=== PATIENT | female | born 1965 | race Caucasian/White ===

== ENCOUNTER 2020-02-10 08:07 | Emergency (ER) | payer BC, SELFPAY ==
[2020-02-10 08:13] VITALS: BP 140/100; PULSE 85; RESP 18; TEMP 36.8; O2SAT 98
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
[2020-02-10 09:30] VITALS: BP 135/92; PULSE 70; RESP 12; O2SAT 99
== END 2020-02-10 09:35 | disposition home or self-care (01) ==
PROVIDERS: Emergency Provider Emergency Medicine; PCP Family Medicine
DX: T21.21XA Burn of second degree of chest wall, initial encounter (principal); T31.0 Burns involving less than 10% of body surface; X11.1XXA Contact with running hot water, initial encounter
CPT/HCPCS: 99283

== ENCOUNTER 2021-12-23 16:28 | Emergency (ER) | payer SELFPAY ==
[2021-12-23 16:39] VITALS: BP 183/105; PULSE 120; RESP 28; TEMP 36.1; O2SAT 88
[2021-12-23] MEDS: IPRATROPIUM BR 0.02% INH SOLN 0.5 MG/2.5 ML VIAL INHALATION (16:39)
[2021-12-23] MEDS: ALBUTEROL SULFATE NEB 2.5 MG/3 ML INH INHALATION (16:39)
--- NOTE | 2021-12-23 16:39 | ED.GENADULT ---
HPI - General Adult General Chief complaint: Shortness of Breath/Dyspnea Stated complaint: Shortness of Breath Time Seen by Provider: 12/23/21 16:30 Source: patient and RN notes reviewed Mode of arrival: ambulatory Limitations: no limitations History of Present Illness HPI narrative: 56-year-old female presents to the [facility] with complaints of shortness of breath. [facility] tachypneic, tachycardic and low sats. Patient can only talk 2-3 word sentences. Mildly diaphoretic. states that she saw her primary care provider a month ago (12/02 per medical record) was told it was a viral cough and was given an inhaler. Patient comes in stating its not getting any better, getting worse, unable to catch her breath. Patient denies any chest pain or abdominal pain. No nausea or vomiting. MD complaint: shortness of breath Onset (ago): week(s) (3, worse over the last couple days) Treatments prior to arrival: other (Prescribed albuterol inhaler) Related Data Home Medications Medication Instructions Recorded Confirmed albuterol sulfate 90 mcg/actuation 1 inh inhalation DIRECTED 12/23/21 12/23/21 aerosol inhaler dextroamphetamine-amphetamine 15 1 tablet BID 12/23/21 12/23/21 mg tablet omeprazole 40 mg capsule,delayed 40 cap DAILY 12/23/21 12/23/21 release sertraline 100 mg tablet 50 tablet DAILY 12/23/21 12/23/21 Allergies Allergy/AdvReac Type Severity Reaction Status Date / Time No Known Allergies Allergy Mild Verified 12/23/21 16:43 Review of Systems Review of Systems: All systems reviewed & are unremarkable except as noted in HPI and below Constitutional: Constitutional: Reports no additional constitutional complaints, Denies chills and Denies fever(s) Eyes: Eyes: Reports no additional eye complaints ENT: Reports system reviewed and no additional complaints, except as documented Cardiovascular: Cardiovascular: Reports no additional cardiovascular complaints Respiratory: Respiratory: Reports as per HPI, Reports cough, Reports dyspnea and Reports wheezing Gastrointestinal: Gastrointestinal: Reports no additional gastrointestinal complaints Musculoskeletal: Musculoskeletal: Reports no additional musculoskeletal complaints Integumentary/Breasts: Skin/Breast: Reports system reviewed and no additional complaints, except as docu Neurologic: Reports system reviewed and no additional complaints, except as documented Psychiatric: Psychiatric: Reports no additional psychiatric complaints Allergic/Immunologic: Allergic/Immunologic: Reports no additional allergic/immunologic complaints [facility] Past Medical History Medical History (Updated 12/23/21 @ 17:23 by Luz Abarca APRN) Bilateral hand numbness Elevated glucose Elevated hemoglobin Elevated liver enzymes Elevated liver function tests Hot flashes Insomnia MDD (major depressive disorder) Surgical History Surgical History (Updated 12/23/21 @ 17:23 by Luz Abarca APRN) No history of previous surgery Family History Family History Mother Hypertension Family history of diabetes mellitus in first degree relative Father Hypertension Grandparent Family history of malignant neoplasm of breast Social History Social History Smoking status: Former smoker Tobacco type: cigarettes Smoking end date: 07/10/08 Alcohol intake: current Drinks per week: 10 Substance use: current Substance use type: marijuana Other substance usage details: smokes, 1-2x per day 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
--- NOTE | 2021-12-23 16:40 | ECG_ITS ---
Measurements Intervals [place] Rate: 103 P: 72 HI: 132 QRS: 17 QRSD: 91 T: 47 QT: 344 QTc: 452 Interpretive Statements SINUS TACHYCARDIA POSSIBLE LEFT ATRIAL ENLARGEMENT [-0.1mV P WAVE IN V1/V2] ABNORMAL RHYTHM ECG COMPARED TO ECG 12/23/2021 16:37:26 NO SIGNIFICANT DIFFERENCE Electronically Signed On 12-24-2021 14:32:02 CDT by Yared Euceda M.D.
[2021-12-23 16:45] VITALS: BP 183/105; PULSE 120; RESP 28; TEMP 36.1; O2SAT 88
[2021-12-23 17:09] VITALS: O2SAT 94
== END 2021-12-23 17:09 | disposition short-term general hospital (02) ==
PROVIDERS: Emergency Provider Nurse Practitioner; PCP Family Medicine
DX: R06.00 Dyspnea, unspecified (principal); Z87.891 Personal history of nicotine dependence; F32.9 Major depressive disorder, single episode, unspecified
CPT/HCPCS: 93005; 94640; 99213; G0463

== ENCOUNTER 2021-12-23 17:24 | Inpatient (IN) | payer MEDICAID, SELFPAY ==
[2021-12-23] VITALS (7 sets, daily range): BP systolic 143–181; BP diastolic 87–100; PULSE 80–114; RESP 14–28; TEMP 36.3–36.9; O2SAT 92–97; BMI 25.0; BMI 25.9
--- NOTE | ~2021-12-23 | CT_ITS ---
EXAMINATION: CTA chest PE protocol DATE: 12/23/2021 20:24 INDICATION: Shortness of breath, cough. Tachycardia. Positive d-dimer. TECHNIQUE: Computed tomography angiography (CTA) of the chest was performed with 100 mL Omnipaque-350 intravenous contrast timed to evaluate the pulmonary arteries. Coronal maximum intensity projection 3D-reconstructions were created by the technologist. Automated exposure control and iterative reconst ruction technique were employed. Exam dose: 201.67 mGy-cm total exam DLP. COMPARISON: 12/23/2021 PA and lateral chest FINDINGS: There is diagnostic contrast enhancement of the pulmonary arteries and no evidence of pulmo nary embolism. No thoracic aortic aneurysm or dissection. Normal heart size. No hilar or mediastinal mass lesion or lymphadenopathy. There are patchy groundglass mild infiltrates in the middle lobe, left upper lobe and bilateral lower lobes, which may be due to mild bilateral pneumonia. Mild compression fracture deformity of T11. No suspicious osteolytic or osteoblastic lesions. IMPRESSION: No evidence of pulmonary embolism Scattered mild bilateral pulmonary groundglass infiltrates, which may be due to patchy bilateral pneu monia Reviewed, dictated and finalized at [facility]. Reviewed, dictated and finalized at [facility]. IMPRESSION: No evidence of pulmonary embolism Scattered mild bilateral pulmonary groundglass infiltrates, which may be due to patchy bilateral pneumonia
--- NOTE | ~2021-12-23 | XR_ITS ---
XR chest 2V DATE: 12/23/2021 18:18 INDICATION: Shortness of breath and cough TECHNIQUE: PA and lateral views COMPARISON: 09/29/2008 expiratory PA chest FINDINGS: Normal heart size. No hilar or mediastinal enlargement. Mild leftward cardiac left lower lobe infiltrate or atelectasis. No pulmonary infiltrate or consolida tion, pleural effusion or pulmonary vascular congestion or pneumothorax is detected otherwise. IMPRESSION: Mild left lower lobe infiltrate or atelectasis Reviewed, dictated and finalized at [facility].
--- NOTE | 2021-12-23 17:33 | ECG_ITS ---
Measurements Intervals [place] Rate: 98 P: 72 VA: 136 QRS: 8 QRSD: 77 T: 41 QT: 356 QTc: 455 Interpretive Statements SINUS RHYTHM POSSIBLE RIGHT ATRIAL ENLARGEMENT [0.25mV P WAVE] NONSPECIFIC T-WAVE ABNORMALITY NO PREVIOUS ECG AVAILABLE FOR COMPARISON Electronically Signed On 12-24-2021 14:29:06 CDT by Yared Euceda M.D.
[2021-12-23 17:51] LABS: Basophils Percent Auto 0.5 % (0.2-1.2); Eosinophils Absolute Auto 0.4 K/mm3 (0-0.3); Eosinophils Percent Auto 4.9 % (0-4.4); Hematocrit 53.9 % (37.0-47.0); Hemoglobin 17.9 g/dL (12.0-15.0); Immature Granulocyte Absolute 0.03 K/mm3 (0.00-0.031); Immature Granulocyte Percent A 0.4 % (0-0.5); Lymphocytes Absolute Auto 1.85 K/mm3 (0.9-3.2); Lymphocytes Percent Auto 25.3 % (18.3-44.2); Mean Corpuscular HGB Conc 33.2 g/dl (32-36); Mean Corpuscular Hemoglobin 30.7 pg (26-34); Mean Corpuscular Volume 92.3 fl (80-100); Mean Platelet Volume 9.1 fl (7.4-10.4); Monocytes Absolute Auto 0.5 K/mm3 (0.1-0.6); Monocytes Percent Auto 7.1 % (2.6-8.5); Neutrophils Absolute Auto 4.5 K/mm3 (1.3-6.7); Neutrophils Percent Auto 61.8 % (45.5-73.1); Platelet Count Result 180 k/mm3 (150-375); Red Blood Count 5.84 M/mm3 (4.2-5.4); Red Cell Distribution Width 13.4 % (11.5-14.5); White Blood Count 7.3 K/mm3 (4.5-10.0)
[2021-12-23 18:04] LABS: Alanine Aminotransferase 39 U/L (6-35); Albumin Level 4.8 g/dL (3.5-5.1); Alkaline Phosphatase 152 U/L (38-126); Anion Gap 12 mmol/L (8-16); Aspartate Amino Transferase 47 U/L (14-36); Bilirubin,Total 0.6 mg/dL (0.2-1.3); Blood Urea Nitrogen 13 mg/dL (7-17); Calcium 9.1 mg/dL (8.4-10.2); Carbon Dioxide 26 mmol/L (22-30); Chloride 104 mmol/L (98-107); Estimated CRCL calculation 95 ml/min; Estimated Glomerular Filt Rate > 60; Glucose 101 mg/dL (65-110); Potassium 3.7 mmol/L (3.4-5.0); Sodium 142 mmol/L (137-145)
--- NOTE | 2021-12-23 18:27 | ED.SOB ---
HPI - SOB/Dyspnea General Chief Complaint: Shortness of Breath/Dyspnea <ELAINA Rose Last Filed: 12/23/21 23:15> Stated Complaint: SOB, REFUSED EMS-SATS 88% <ELAINA Rose Last Filed: 12/23/21 23:15> Time Seen by Provider: 12/23/21 18:11 <ELAINA Rose Last Filed: 12/23/21 23:15> History of Present Illness HPI Narrative: Patient is a 56-year-old female here for evaluation of cough and shortness of breath for the past month. Patient states that her symptoms began with a dry cough at the beginning of the month and symptoms have progressed in nature to the point where she feels short of breath. The cough was initially productive in nature of green sputum, but is now dry. The cough is not worse when she is lying flat. She has been seen by her primary care provider and was given albuterol inhaler without much relief of her symptoms. She additionally presented to an urgent care today, got breathing treatment, was told to come to the ED because her oxygen saturation was 88%. Patient has not had a COVID test throughout the symptoms although she is fully vaccinated. She denies any fevers, chills, body aches, leg swelling, orthopnea, weight gain, chest pain, syncope. No history of blood clots. <ELAINA Rose Last Filed: 12/23/21 23:15> Related Data Home Medications: Home Medications Medication Instructions Recorded Confirmed dextroamphetamine-amphetamine 15 1 tablet PO BID 12/23/21 01/05/22 mg tablet omeprazole 40 mg capsule,delayed 40 cap PO DAILY 12/23/21 01/05/22 release sertraline 100 mg tablet 50 tablet PO DAILY 12/23/21 01/05/22 <ELAINA Rose Last Filed: 12/23/21 23:15> Allergies/Adverse Reactions: Allergies Allergy/AdvReac Type Severity Reaction Status Date / Time No Known Allergies Allergy Mild Verified 01/05/22 15:06 <ELAINA Rose Last Filed: 12/23/21 23:15> Review of Systems Review of Systems: Gen: Denies fevers or chills Eyes: Denies eye pain or visual change ENT: Denies congestion Respiratory: Reports shortness of breath and cough CV: Denies chest pain or palpitations GI: Denies abdominal pain nausea, emesis or diarrhea denies burning, urgency, frequency or hematuria Musculoskeletal: Denies back pain or muscle pain Neuro: Denies numbness, tingling, weakness or focal weakness Skin: Denies rash Except as documented, all other systems reviewed and negative <Annika Miller PA-C - Last Filed: 12/23/21 23:15> [facility] Past Medical History Medical History: Medical History Attention Deficit Hyperactivity Disorder (ADHD) Depression Gastroesophageal reflux disease Hypertension Insomnia <Annika Miller PA-C - Last Filed: 12/23/21 23:15> Surgical History Surgical History: Surgical History History of hysteroscopy With dilation and curettage and endocervical polypectomy. <Annika Miller PA-C - Last Filed: 12/23/21 23:15> Family History Family History: Family History Mother Hypertension Family history of diabetes mellitus in first degree relative Father Hypertension Grandparent Family history of malignant neoplasm of breast <Annika Miller PA-C - Last Filed: 12/23/21 23:15> Social History Social History: Social History Social History: Surrogate decision maker: Maritza Smith, mother. Code status: Full code. Smoking packs per day: 0.5 Smoking cigarettes per day: 10.0 Smoking status: Former smoker Tobacco type: cigarettes Additional smoking assessment comments: Quit about 15 years ago. Alcohol intake: current Drinks per week: 7 Alcohol use details: She has not drank mu
[2021-12-23] MEDS: ALBUTEROL SULFATE NEB 2.5 MG/3 ML INH INHALATION (18:44)
[2021-12-23 19:15] LABS: D Dimer 1.02 ug/mL (<0.48)
[2021-12-23 19:18] LABS: NT Pro B Type Natriuretic Pept < 11 pg/mL (5-100)
--- NOTE | 2021-12-23 21:09 | PM.IMHP ---
H&P: HPI History of Present Illness Date/Time: 12/23/21 21:09 Chief Complaint: Shortness of breath. Narrative: This is a 56-year-old female with past medical history significant for GERD, major depressive disorder. Patient presented to emergency room due to shortness of breath, cough, for the last several days or so however the day that she presents to the emergency room she had checked her pulse ox with home pulse ox and indicated 86%. Patient has has some chills, fevers, poor appetite, denies any nausea, vomiting, abdominal pain, diarrhea, has been having hot flashes and night sweats. Preliminary workup was significant for lactic acid of 3.6, slightly elevated D-dimer, CT angiogram of the chest did not show acute pulmonary embolism bilateral patchy ground-glass opacities were present. Patient has been admitted for further evaluation management and treatment. Review of Systems Review of Systems: Shortness of breath, cough, night sweats, hot flashes, low pulse ox. Constitutional: Constitutional: Reports chills, Reports fatigue, Reports fever(s), Reports lethargy, Reports malaise, Reports night sweats and Reports poor appetite Eyes: Eyes: Denies change in vision ENT: Denies dysphagia, Denies vertigo, Denies dizziness and Denies odynophagia Cardiovascular: Cardiovascular: Denies chest pain, Denies pedal edema, Denies irregular heart rhythm, Denies claudication, Denies lightheadedness, Denies palpitations and Denies dyspnea on exertion Respiratory: Respiratory: Reports cough and Reports excessive phlegm production Gastrointestinal: Gastrointestinal: Denies abdominal pain, Denies dyspepsia, Denies heartburn and Denies diarrhea Genitourinary: Genitourinary: Reports no additional female genitourinary complaints and Reports as per HPI Musculoskeletal: Musculoskeletal: Denies back pain, Reports myalgias, Denies arthralgias and Denies joint swelling Integumentary/Breasts: Skin/Breast: Denies rash Neurologic: Denies focal weakness and Denies Sensory deficit (Neuro) Psychiatric: Psychiatric: Reports no additional psychiatric complaints and Reports as per HPI Endocrine: Endocrine: Denies cold intolerance, Denies fatigue, Denies flushing, Denies heat intolerance, Denies polyphagia, Denies polydipsia and Denies palpitations Hematologic/Lymphatic: Hematologic/Lymphatic: Reports no additional hematologic/lymphatic complaints and Reports as per HPI Allergic/Immunologic: Allergic/Immunologic: Reports no additional allergic/immunologic complaints and Reports as per HPI [facility] Past Medical History Medical History Bilateral hand numbness Elevated glucose Elevated hemoglobin Elevated liver enzymes Elevated liver function tests Hot flashes Insomnia MDD (major depressive disorder) Surgical History Surgical History No history of previous surgery Family History Family History Mother Hypertension Family history of diabetes mellitus in first degree relative Father Hypertension Grandparent Family history of malignant neoplasm of breast Social History Social History Smoking packs per day: 0.5 Smoking cigarettes per day: 10.0 Smoking status: Former smoker Tobacco type: cigarettes Alcohol intake: current Drinks per week: 10 Substance use: current Substance use type: marijuana Other substance usage details: smokes, 1-2x per day Additional occupation/education comments: [employer] Gender identity (if verbalized by the patient): Female Sexual Orientation (if Verbalized by the Patient): Straight or Heterosexual Spiritual care concerns: No Agree to blood products: Yes Meds Home Medications and Allergies Home Medications Medication Instructions Recorded Confirmed Type alb
[2021-12-23 21:20] LABS: Lactic Acid Reflex 3.6 mmol/L (0.7-2.0)
[2021-12-23] MEDS: SODIUM CHLORIDE 0.9% IV 1,000 ML 999 ML IV CONT (22:20)
--- NOTE | 2021-12-23 23:06 | PC.NURSE ---
This patient, Luci Smith, was admitted to [facility] Surg Room 320-01. Patient/family oriented to hospital policies and general routines including ID bracelet, bed and alarms, visiting hours, pain management, procedures, bathroom and other care routines, personal items, smoking policy, room service/diet, and visiting hours. Information on how to activate the Rapid Response Team has been discussed. Patient/Family are encouraged to report perceived risks to care and to ask questions if they do not understand what they are told or what they should do.
[2021-12-24 00:09] LABS: Reflex Lactic Acid Yes or No Add Lactic
[2021-12-24 00:54] LABS: Lactic Acid 1.6 mmol/L (0.7-2.0)
[2021-12-24 06:00] VITALS: BP 163/93; PULSE 81; RESP 20; TEMP 36.2; O2SAT 96
[2021-12-24 08:00] VITALS: PULSE 81; RESP 20; O2SAT 96
[2021-12-24] MEDS: PANTOPRAZOLE 40 MG TABLET PO ×2 (08:40→16:18)
[2021-12-24] MEDS: ONDANSETRON INJ 4 MG/2 ML VIAL IV PUSH (10:10)
[2021-12-24] MEDS: HYDROcodone/acetaminophen (*CRX) 5-325 MG TABLET 1 TAB PO ×3 (11:08→21:01)
[2021-12-24] MEDS: SERTRALINE HCL 50 MG TABLET 200 MG PO (11:09)
[2021-12-24] MEDS: ENOXAPARIN 40 MG/0.4 ML SYRINGE SUB-Q (11:09)
--- NOTE | 2021-12-24 11:15 | PM.IMPN ---
Progress Note: A&P Assessment and Plan (1) Sepsis: Code(s): A41.9 - Sepsis, unspecified organism Status: Acute Assessment and Plan: Patient meets sepsis criteria with tachycardia, elevated lactic acid, tachypnea, lactic acidosis, and present source of infection Source of infection PNA chest xray- mild left lower lobe infiltrate CTA shows ground glass opacities Blood cultures pending sputum culture pending Neb treatments ordered Antibiotics ordered IV fluids given in the ed (2) Pneumonia: Code(s): J18.9 - Pneumonia, unspecified organism Status: Acute Assessment and Plan: See above (3) Transaminitis: Code(s): R74.01 - Elevation of levels of liver transaminase levels Status: Acute Assessment and Plan: AST/ALT 47/39, Alk Phos 152 Hep panel in the am Consider RUQ ultrasound Time Spent With Patient Time with patient: Greater than 35 minutes Subjective Date/time seen: 12/24/21 11:15 Interval history: Patient stated that she feels very ?shitty and Stinky . She stated that she has a cough however it has not been as bad since 5:00 a.m. this morning and she does not getting up. She did state that she is having more problems with wheezes she denies any chest pain but she does say that she has nausea specially when she eats but she said she has also jittery and feels like she should be eating. She has also been experiencing some sweat, fevers, chills. She also states that she has been short of breath with talking and laughing. She also has experienced some pain in her tooth which she does not know where that came from however pain medicine is currently ordered. Patient also stated her blood pressures been usually runs in the 120s but she has not checked it in a while so she does not know for sure. Patient stated that she has not vomited and she denies any weakness or fatigue. Patient stated that it has been hard to take a deep breath. Review of Systems Review of Systems: All systems reviewed & are unremarkable except as noted in HPI and below Exam Const: General: cooperative, no acute distress, well developed, alert and awake Nutritional Appearance: well nourished Orientation/consciousness: patient oriented x3 Limitations: no limitations HENMT: Head: normal to inspection Ears: hearing grossly normal bilaterally General nose exam: Normal external nose present Mouth: Yes Normal oral and palatal mucosa present, Yes lip normal and Yes tongue normal Teeth and gingiva: abnormal tooth and associated gingiva and poor dentition Eyes: General: appearance normal, both eyes and all related structures Neck: Neck: normal visual inspection, full ROM, trachea midline and supple Chest: Chest palpation & inspection: normal inspection of the chest Resp: Effort & Inspection: abnormal respiratory pattern, Actively coughing, labored and tachypneic Auscultation: diminished lung sounds bilateral throughout Cardio: Jugular venous distension: no JVD Rate: regular rate Rhythm: regular rhythm Heart sounds: S1 normal heart sound present and S2 normal heart sound present Peripheral pulses: Peripheral pulses 2+ throughout GI: Inspection: normal to inspection GI Palp: Yes Soft to palpation and No Tenderness to palpation present (GI) Auscultation: normal bowel sounds Skin: General skin exam: normal color and no rashes or lesions noted Lesions: no lesions Rashes: no rashes Trauma: no lacerations or abrasions Wounds: no wounds Hair: normal Nails: normal Neuro: General: patient oriented x3, moves all extremities and Normal light touch and pain sensation Speech: normal speech Gait exam (Neuro): Normal gait present Extrem: General: normal to inspection Right upper extremity: normal to inspection Left upper extremity: normal to inspection Right lower extremity: normal to inspection Left lower extremity: normal to inspection Psych: Appearan
[2021-12-24 14:00] VITALS: BP 165/87; PULSE 66; RESP 16; TEMP 36.2; O2SAT 95
[2021-12-24 20:53] VITALS: BP 190/110; PULSE 82; RESP 18; TEMP 36.1; O2SAT 97
[2021-12-24] MEDS: cefTRIAXone 2 GM in SODIUM CHLORIDE 0.9% IV 100 ML 200 ML IVPB (20:55)
[2021-12-24] MEDS: hydrALAZINE HCL 20 MG/ML VIAL 10 MG IV PUSH (21:37)
[2021-12-24] MEDS: guaiFENesin 200 MG/10 ML UDC PO (21:38)
[2021-12-24 23:14] VITALS: BP 170/90
[2021-12-25] MEDS: HYDROcodone/acetaminophen (*CRX) 5-325 MG TABLET 1 TAB PO ×2 (02:09→08:37)
[2021-12-25 05:14] VITALS: BP 161/85; PULSE 71; RESP 16; TEMP 36.6; O2SAT 99
[2021-12-25 06:07] LABS: Basophils Percent Auto 0.4 % (0.2-1.2); Eosinophils Absolute Auto 0.5 K/mm3 (0-0.3); Eosinophils Percent Auto 5.8 % (0-4.4); Hematocrit 54.2 % (37.0-47.0); Hemoglobin 18.2 g/dL (12.0-15.0); Immature Granulocyte Absolute 0.02 K/mm3 (0.00-0.031); Immature Granulocyte Percent A 0.3 % (0-0.5); Lymphocytes Absolute Auto 1.83 K/mm3 (0.9-3.2); Mean Corpuscular HGB Conc 33.6 g/dl (32-36); Mean Corpuscular Volume 92.2 fl (80-100); Mean Platelet Volume 9.7 fl (7.4-10.4); Monocytes Absolute Auto 0.6 K/mm3 (0.1-0.6); Monocytes Percent Auto 7.8 % (2.6-8.5); Neutrophils Percent Auto 62.7 % (45.5-73.1); Platelet Count Result 165 k/mm3 (150-375); Red Blood Count 5.88 M/mm3 (4.2-5.4); Red Cell Distribution Width 12.8 % (11.5-14.5)
[2021-12-25 06:22] LABS: Alanine Aminotransferase 34 U/L (6-35); Albumin Level 4.5 g/dL (3.5-5.1); Alkaline Phosphatase 122 U/L (38-126); Anion Gap 8 mmol/L (8-16); Aspartate Amino Transferase 44 U/L (14-36); Bilirubin,Total 1.3 mg/dL (0.2-1.3); Blood Urea Nitrogen 12 mg/dL (7-17); Calcium 9.1 mg/dL (8.4-10.2); Carbon Dioxide 30 mmol/L (22-30); Chloride 97 mmol/L (98-107); Estimated CRCL calculation 95 ml/min; Estimated Glomerular Filt Rate > 60; Glucose 107 mg/dL (65-110); Magnesium 1.8 mg/dL (1.6-2.3); Potassium 3.3 mmol/L (3.4-5.0); Sodium 135 mmol/L (137-145)
[2021-12-25 08:00] VITALS: PULSE 71; RESP 16; O2SAT 99
[2021-12-25] MEDS: SERTRALINE HCL 50 MG TABLET 200 MG PO (08:34)
[2021-12-25] MEDS: ENOXAPARIN 40 MG/0.4 ML SYRINGE SUB-Q (08:34)
[2021-12-25] MEDS: PANTOPRAZOLE 40 MG TABLET PO (08:34)
--- NOTE | 2021-12-25 10:45 | PM.DS ---
DS: Admitting Diagnosis Discharge Date 12/25/21 1045 Admitting Diagnosis Pneumonia DS: Discharge Diagnosis Discharge Diagnosis (1) Sepsis: Code(s): A41.9 - Sepsis, unspecified organism Status: Acute Assessment and Plan: Patient meets sepsis criteria with tachycardia, elevated lactic acid, tachypnea, lactic acidosis, and present source of infection Source of infection PNA chest xray- mild left lower lobe infiltrate CTA shows ground glass opacities Blood cultures NGTD sputum culture Mixed yary Neb treatments ordered Antibiotics ordered IV fluids given in the ed (2) Pneumonia: Code(s): J18.9 - Pneumonia, unspecified organism Status: Acute Assessment and Plan: See above (3) Transaminitis: Code(s): R74.01 - Elevation of levels of liver transaminase levels Status: Acute Assessment and Plan: AST/ALT 44/34, Alk Phos 122 Consider RUQ ultrasound (4) Hypertension: Code(s): I10 - Essential (primary) hypertension Status: Acute Assessment and Plan: BP running high currently 161/85 Add lisinopril 10mg pO daily Trend BP adjust therapy as indicated DS: Summary Hospital Course Hospital Course: Patient is a 56-year-old female with a past medical history of GERD, major depressive disorder, who presented to the ED for shortness of breath and cough the last several days. Laboratory results did review patient did meet sepsis criteria and IV antibiotics were started. Blood cultures also showed taken however show no growth to date. Chest x-ray does show bilateral ground-glass opacities consistent with pneumonia. Patient was given IV fluids for rehydration. Patient does feel a lot better today. Patient states that she has had much of cough and no phlegm. She denies any chest pain, shortness of breath, nausea, vomiting, diarrhea, constipation weakness or fatigue. Patient is concerned about her blood pressure which is currently 161/82. Patient has been started on lisinopril p.o.. Patient feels stable and ready to go home. Labs and vital signs are stable at this time. Will educate patient about taking her blood pressure and reporting to her primary care physician for further instructions. Status at Discharge Functional status at discharge: independent ambulation Overall status at discharge: patient is progressing back to baseline Time Spent with Patient Time attestation: Total time spent providing and/or coordinating discharge services: 42 minutes Time spent: Greater than 30 minutes Specific discharge activities: Diagnostic testing, chart review, developing a treatment plan, education, care coordination documentation, physical exam, result review Exam Const: General: cooperative, comfortable, no acute distress, well developed, alert, awake, Physically active and tired appearing Nutritional Appearance: average body habitus and well nourished Orientation/consciousness: patient oriented x3 Limitations: no limitations HENMT: Head: normal to inspection, normocephalic and atraumatic Ears: hearing grossly normal bilaterally General nose exam: Normal external nose present Face and sinus: normal facial exam Mouth: Yes Normal oral and palatal mucosa present, Yes lip normal and Yes tongue normal Teeth and gingiva: abnormal tooth and associated gingiva and poor dentition Eyes: General: appearance normal, both eyes and all related structures Pupils: Equal, round and reactive pupils present EOM: EOMs intact bilaterally Neck: Neck: normal visual inspection, full ROM, no lymphadenopathy, trachea midline, supple and no JVD Thyroid: thyroid normal Lymphatic: no lymphadenopathy noted Chest: Chest palpation & inspection: normal inspection of the chest Resp: Effort & Inspection: normal respiratory effort, able to speak in complete sentences, abnormal respiratory pattern, Actively coughing, labored and tachypneic Auscul
[2021-12-25] MEDS: lisinopriL 10 MG TABLET PO (13:57)
[2021-12-25] MEDS: POTASSIUM CHLORIDE 20 MEQ TABLET 40 MEQ PO (13:59)
[2021-12-25 14:00] VITALS: BP 163/89; PULSE 97; RESP 18; TEMP 37.3; O2SAT 95
== END 2021-12-25 14:45 | disposition home or self-care (01) | DRG 720 ==
LOC: ANHED 20:45 → ANH3MEDSUR 23:50
PROVIDERS: Physician Assistant; Admitting Provider Internal Medicine; Emergency Provider Emergency Medicine; PCP Family Medicine; Visit Provider Nurse Practitioner
DX: A41.9 Sepsis, unspecified organism (principal); J18.9 Pneumonia, unspecified organism; E87.2 Acidosis; F90.9 Attention-deficit hyperactivity disorder, unspecified type; F32.0 Major depressive disorder, single episode, mild; I10 Essential (primary) hypertension; K21.9 Gastro-esophageal reflux disease without esophagitis; R74.01 Elevation of levels of liver transaminase levels; Z87.891 Personal history of nicotine dependence
CPT/HCPCS: 36415; 71046; 71275; 80053; 83605; 83735; 83880; 85025; 85380; 87040; 87070; 87205; 93005; 94640; 99285; A9270; J0360; J0456; J0696; J1650; J2405; J7030; Q9967

== ENCOUNTER 2022-01-05 08:17 | Inpatient (IN) | payer MEDICAID, SELFPAY ==
[2022-01-05] VITALS (40 sets, daily range): BP systolic 96–146; BP diastolic 48–87; PULSE 85–115; RESP 15–27; TEMP 36.3–36.8; O2SAT 91–100
--- NOTE | ~2022-01-05 | XR_ITS ---
EXAMINATION: XR chest 1V portable INDICATION: Shortness of breath TECHNIQUE: Portable AP chest at 0836 hours COMPARISON: 12/23/2021 FINDINGS: There are patchy opacities in the upper lung zones and in the right mid and lower lung zone . No pleural effusion or pneumothorax. The cardiomediastinal silhouette is normal. IMPRESSION: 1. Patchy airspace opacities, consistent with atelectasis versus pneumonia. Reviewed, dictated and finalized at location A.
--- NOTE | ~2022-01-05 | CT_ITS ---
EXAMINATION: CTA chest PE protocol DATE: 01/05/2022 10:23 INDICATION: Shortness of breath TECHNIQUE: Computed tomography angiography (CTA) of the chest was performed with 100 mL Omnipaque-350 intravenous contrast timed to evaluate the pulmonary arteries. Coronal maximum intensity projection 3D-reconstructions were created by the technologist. The dose-length product (DLP) was 319.35 mGy-cm. Automated exposure control and iterative reconstruction technique were employed. COMPARISON: 12/23/2021 FINDINGS: The pulmonary arteries are well-opacified. No pulmonary embolism is identified. There are p atchy bilateral groundglass opacities with slight improvement in the perihilar regions and worsening in the lung apices. No pleural effusion or pneumothorax. No pathologically enlarged thoracic lymph no le are identified. The heart size is normal. There is mild thoracic spondylosis. IMPRESSION: 1. No pulmonary embolism. 2. Patchy bilateral groundglass opacities with worsening in the lung apices improvement in the perihi lar regions, consistent with pneumonia. Reviewed, dictated and finalized at location A. IMPRESSION: 1. No pulmonary embolism. 2. Patchy bilateral groundglass opacities with worsening in the lung apices imp rovement in the perihilar regions, consistent with pneumonia.
--- NOTE | ~2022-01-05 | XR_ITS ---
XR chest 1V portable DATE: 01/08/2022 09:35 INDICATION: Cough TECHNIQUE: Portable upright AP chest on 01/08/2022 at 0930 hours COMPARISON: 01/05/2022 CT pulmonary scan 01/05/2022 portable AP chest FINDINGS: There is mild infiltrate or atelectasis at the lower lung zones, greater on the left. The l ungs otherwise appear clear. Minimal blunting of the left costophrenic angle. Normal heart size. IMPRESSION: Bibasilar infiltrate and/atelectasis, left greater than right Reviewed, dictated and finalized at location A.
--- NOTE | 2022-01-05 08:25 | ECG_ITS ---
Measurements Intervals Hagerman Rate: 89 P: 75 HI: 155 QRS: 31 QRSD: 77 T: 52 QT: 356 QTc: 435 Interpretive Statements SINUS RHYTHM POSSIBLE LEFT ATRIAL ENLARGEMENT [-0.1mV P-WAVE IN V1/V2] COMPARED TO ECG 12/23/2021 17:40:03 THE PATIENT IS NO LONGER TACHYCARDIC Electronically Signed On 01-05-2022 12:43:34 CDT by Bre Cross M.D.
[2022-01-05 08:32] LABS: Basophils Percent Auto 0.4 % (0.2-1.2); Eosinophils Absolute Auto 0.6 K/mm3 (0-0.3); Eosinophils Percent Auto 6.1 % (0-4.4); Hematocrit 50.2 % (37.0-47.0); Hemoglobin 16.8 g/dL (12.0-15.0); Immature Granulocyte Absolute 0.03 K/mm3 (0.00-0.031); Immature Granulocyte Percent A 0.3 % (0-0.5); Lymphocytes Absolute Auto 1.98 K/mm3 (0.9-3.2); Lymphocytes Percent Auto 21.2 % (18.3-44.2); Mean Corpuscular HGB Conc 33.5 g/dl (32-36); Mean Corpuscular Hemoglobin 30.9 pg (26-34); Mean Corpuscular Volume 92.3 fl (80-100); Monocytes Absolute Auto 0.6 K/mm3 (0.1-0.6); Monocytes Percent Auto 6.5 % (2.6-8.5); Neutrophils Absolute Auto 6.1 K/mm3 (1.3-6.7); Neutrophils Percent Auto 65.5 % (45.5-73.1); Platelet Count Result 295 k/mm3 (150-375); Red Blood Count 5.44 M/mm3 (4.2-5.4); Red Cell Distribution Width 12.3 % (11.5-14.5); White Blood Count 9.3 K/mm3 (4.5-10.0)
[2022-01-05] MEDS: SODIUM CHLORIDE 0.9% IV 500 ML 999 ML IV CONT (08:41)
[2022-01-05] MEDS: methylPREDNISolone SOD SUCC 125 MG VIAL IV PUSH (08:41)
[2022-01-05] MEDS: IPRATROPIUM BR 0.02% INH SOLN 0.5 MG/2.5 ML VIAL 1.5 MG INHALATION (08:47)
[2022-01-05] MEDS: ALBUTEROL SULFATE NEB 2.5 MG/3 ML INH 15 MG INHALATION (08:47)
[2022-01-05 08:51] LABS: Alanine Aminotransferase 42 U/L (6-35); Albumin Level 4.6 g/dL (3.5-5.1); Alkaline Phosphatase 109 U/L (38-126); Anion Gap 8 mmol/L (8-16); Aspartate Amino Transferase 33 U/L (14-36); Bilirubin,Total 0.3 mg/dL (0.2-1.3); Blood Urea Nitrogen 11 mg/dL (7-17); Calcium 9.3 mg/dL (8.4-10.2); Carbon Dioxide 28 mmol/L (22-30); Chloride 108 mmol/L (98-107); Estimated CRCL calculation 95 ml/min; Estimated Glomerular Filt Rate > 60; Glucose 126 mg/dL (65-110); Potassium 4.1 mmol/L (3.4-5.0); Sodium 144 mmol/L (137-145)
--- NOTE | 2022-01-05 09:07 | ED.SOB ---
HPI - SOB/Dyspnea General Chief Complaint: Shortness of Breath/Dyspnea Stated Complaint: sob Time Seen by Provider: 01/05/22 08:23 Source: patient History of Present Illness HPI Narrative: Patient presents with shortness of breath. Patient reports she was recently admitted for pneumonia overall was feeling improved however the past couple days in particular last night she has had worsening shortness of breath and cough. This morning she is unable to manage her symptoms so she came to the ER for further evaluation. She describes a sensation of not being able to get enough air. Reports having hot flashes and that she is going through menopause she does not believe she has had a fever. She denies any focal areas of pain such as chest pain. Her cough is nonproductive. Related Data Home Medications Medication Instructions Recorded Confirmed dextroamphetamine-amphetamine 15 1 tablet PO BID 12/23/21 01/05/22 mg tablet omeprazole 40 mg capsule,delayed 40 cap PO DAILY 12/23/21 01/05/22 release sertraline 100 mg tablet 50 tablet PO DAILY 12/23/21 01/05/22 Allergies Allergy/AdvReac Type Severity Reaction Status Date / Time No Known Allergies Allergy Mild Verified 01/05/22 15:06 Review of Systems Review of Systems: CONSTITUTIONAL: Denies fever, chills, or sweats. EYES: Denies visual changes, redness, or discharge. ENT: Denies rhinorrhea, congestion, sore throat, or otalgia. CARDIOVASCULAR: Denies chest pain, palpitations, or edema. RESPIRATORY: Reports cough and shortness of breath GASTROINTESTINAL: Denies abdominal pain, nausea, vomiting, or diarrhea. GENITOURINARY: Denies dysuria or hematuria. SKIN: Denies rash or itching. MUSCULOSKELETAL: Denies back pain, joint pain, or myalgia. NEUROLOGIC: Denies headache, numbness, dizziness, or weakness. PSYCHIATRIC: Denies anxiety or depression. All systems reviewed & are unremarkable except as noted in HPI and below PMFSH Past Medical History Medical History (Updated 01/05/22 @ 14:52 by Miladis Horn PA-C) Attention Deficit Hyperactivity Disorder (ADHD) Depression Gastroesophageal reflux disease Hypertension Insomnia Surgical History Surgical History (Updated 01/05/22 @ 14:22 by Miladis Horn PA-C) History of hysteroscopy With dilation and curettage and endocervical polypectomy. Family History Family History Mother Hypertension Family history of diabetes mellitus in first degree relative Father Hypertension Grandparent Family history of malignant neoplasm of breast Social History Social History (Updated 01/05/22 @ 14:23 by Miladis Horn PA-C) Social History: Surrogate decision maker: Maritza Smith, mother. Code status: Full code. Smoking packs per day: 0.5 Smoking cigarettes per day: 10.0 Smoking status: Former smoker Tobacco type: cigarettes Additional smoking assessment comments: Quit about 15 years ago. Alcohol intake: current Drinks per week: 7 Alcohol use details: She has not drank much alcohol this month with her current illness Substance use: current Substance use type: marijuana Other substance usage details: smokes, 1-2x per day Spiritual care concerns: No Agree to blood products: Yes Exam Narrative: GENERAL: Well-appearing, well-nourished, and in no acute distress. HEAD: Normocephalic, atraumatic. EYES: PERRLA and EOMI. ENT: Nares clear, no rhinorrhea or epistaxis. Mucous membranes moist. NECK: Supple. No masses. No JVD CHEST: Moderate diffuse wheezing both inspiratory and expiratory HEART: Regular rate and rhythm. No murmur heard. Normal peripheral pulses. ABDOMEN: Soft, nontender, nondistended, normal active bowel sounds. EXTREMITIES: Normal range of motion. No edema. SKIN: Warm, dry, no rash. NEURO: No focal deficits. Alert and oriented x3. PSYCH: Normal mood and affect. Course Reevaluation(s) Reevaluation #1:
[2022-01-05 09:17] LABS: D Dimer 1.55 ug/mL (<0.48)
[2022-01-05 09:27] LABS: SARS-CoV-2 RNA PCR Negative
--- NOTE | 2022-01-05 10:15 | PC.NURSE ---
Patient to CT
[2022-01-05] MEDS: PIPERACILLIN/TAZOBACTAM SOD 4.5 GM in SODIUM CHLORIDE 0.9% IV 100 ML 200 ML IVPB (12:07)
--- NOTE | 2022-01-05 13:00 | PM.IMHP ---
H&P: HPI History of Present Illness Date/Time: 01/05/22 13:00 Chief Complaint: Cough, wheezing, shortness of breath. Narrative: This is a pleasant 56-year-old female former smoker with hypertension who presented to the emergency department from home for evaluation of cough, wheezing, and shortness of breath. She has not been feeling well for several weeks and in fact she was hospitalized at this facility between 12/23/2021 and 12/25/2021 with sepsis related to community acquired pneumonia. She was discharged on Augmentin and completed the course of antibiotics this past Monday. After discharge she had several days of nausea, vomiting, and diarrhea which she attributed to the antibiotic and that has since resolved. Unfortunately over the last 2 days she has once again developed an increasing cough which has been rarely productive of whitish colored phlegm. This morning around 02:00 she was awakened from sleep with a coughing jag and she has been wheezing and short of breath since that time. On arrival to the emergency department she was given a dose of Solu-Medrol and a DuoNeb with improvement however she continues to have an oxygen requirement of 2 L to maintain her SPO2 in the mid 90s and she is being admitted in this setting. She has no known history of pulmonary disease and specifically denies history of asthma, emphysema, and COPD. 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 She has a roommate who is a smoker however they do not smoke in the house. Her home was built in the late 1970s and she has lived there for many years. She has not noticed any standing water, mold, or mildew. They have kittens at home but no other animals. She denies recent travel and sick contacts. She also denies dysphagia and concerns for aspiration. No recent fever, chills, sweats, nausea, vomiting, or diarrhea. Review of Systems Review of Systems: 12 systems were reviewed. No sinus congestion or sore throat. She denies rash and joint swelling. She has had mild chest tightness today with the wheezing but that improved after receiving a nebulizer. Except as documented, all other systems were reviewed and are negative. [facility] Past Medical History Medical History (Updated 01/05/22 @ 20:07 by Miladis Horn PA-C) Attention Deficit Hyperactivity Disorder (ADHD) Depression Gastroesophageal reflux disease Hypertension Insomnia Surgical History Surgical History (Updated 01/05/22 @ 14:22 by Miladis Horn PA-C) History of hysteroscopy With dilation and curettage and endocervical polypectomy. Family History Family History Mother Hypertension Family history of diabetes mellitus in first degree relative Father Hypertension Grandparent Family history of malignant neoplasm of breast Social History Social History (Updated 01/05/22 @ 14:23 by Miladis Horn PA-C) Social History: Surrogate decision maker: Maritza Smith, mother. Code status: Full code. Smoking packs per day: 0.5 Smoking cigarettes per day: 10.0 Smoking status: Former smoker Tobacco type: cigarettes Additional smoking assessment comments: Quit about 15 years ago. Alcohol intake: current Drinks per week: 7 Alcohol use details: She has not drank much alcohol this month with her current illness Substance use: current Substance use type: marijuana Other substance usage details: smokes, 1-2x per day Spiritual care concerns: No Agree to blood products: Yes Meds Home Medications and Allergies Home Medications Medication Instructions Recorded Confirmed Type dextroamphetamine-amphetamine 15 1 tablet PO BID 12/23/21 01/05/22 History mg tablet omeprazole 40 mg capsule,delayed 40 cap PO DAILY 12/23/21 01/05/22 History release sertraline 100 mg
[2022-01-05] MEDS: IPRATROPIUM BR 0.02% INH SOLN 0.5 MG/2.5 ML VIAL INHALATION ×2 (13:58→20:55)
[2022-01-05] MEDS: ALBUTEROL SULFATE NEB 2.5 MG/3 ML INH 5 MG INHALATION (13:58)
[2022-01-05] MEDS: SODIUM CHLORIDE 0.9% IV 1,000 ML 125 ML IV CONT (14:32)
--- NOTE | 2022-01-05 15:05 | ADMGEN ---
This patient, Luci Smith, was admitted to 3 [facility] Surg Room 303-01. Report received from DONNA Anderson. Patient/family oriented to hospital policies and general routines including ID bracelet, bed and alarms, visiting hours, pain management, procedures, bathroom and other care routines, personal items, smoking policy, room service/diet, and visiting hours. Information on how to activate the Rapid Response Team has been discussed. Patient/Family are encouraged to report perceived risks to care and to ask questions if they do not understand what they are told or what they should do.
[2022-01-05 15:28] LABS: Alveolar/Arterial O2 Gradient 42.3 mmHg; Base Excess ABG -2.8 mEq/l (+/-2.0); Carboxyhemoglobin 0.7 % THb (0-2.0); Device ROOM AIR; Fractional Inspired Oxygen 21 %; Methemoglobin ABG 0.3 %THb (0-1.5); Modified Allen's Test Pass; Oxyhemoglobin 94.1 % THb (90.0-100.0); PCO2 ABG 30.4 mmHg (35.0-45.0); PO2 FiO2 Ratio Arterial Blood 3.38 %; Reduced Hemoglobin 4.9 %THb (0-5.0); Site Drawn LEFT RADIAL; Total Hemoglobin 15.9 g/dL (12.0-18.0); pH ABG 7.437 (7.350-7.450)
[2022-01-05 15:33] LABS: CRP 1.2 mg/dL (<1.0); Magnesium 1.8 mg/dL (1.6-2.3)
[2022-01-05] MEDS: predniSONE 20 MG TABLET 40 MG PO (15:45)
[2022-01-05] MEDS: ALBUTEROL SULFATE NEB 2.5 MG/3 ML INH INHALATION (20:55)
[2022-01-05] MEDS: PANTOPRAZOLE 40 MG TABLET PO (22:20)
[2022-01-05] MEDS: guaiFENesin 600 MG/DEXTROMETHORPHAN 30 MG SR TAB 12 HR 1 TAB PO (22:21)
[2022-01-06] VITALS (10 sets, daily range): BP systolic 115–131; BP diastolic 72–88; PULSE 77–99; RESP 16–20; TEMP 36.3–36.5; O2SAT 93–95
[2022-01-06] MEDS: ALBUTEROL SULFATE NEB 2.5 MG/3 ML INH INHALATION ×3 (02:51→20:22)
[2022-01-06] MEDS: IPRATROPIUM BR 0.02% INH SOLN 0.5 MG/2.5 ML VIAL INHALATION ×3 (02:52→20:23)
[2022-01-06] MEDS: lisinopriL 10 MG TABLET PO (08:29)
[2022-01-06] MEDS: PANTOPRAZOLE 40 MG TABLET PO ×2 (08:29→20:35)
[2022-01-06] MEDS: predniSONE 20 MG TABLET 40 MG PO (08:29)
[2022-01-06] MEDS: SERTRALINE HCL 50 MG TABLET PO (08:29)
--- NOTE | 2022-01-06 09:45 | PM.IMPN ---
Progress Note: A&P Assessment and Plan (1) Pneumonia: Code(s): J18.9 - Pneumonia, unspecified organism Status: Acute Assessment and Plan: chest x-ray shows increasing ground-glass opacities in the apices azithromycin has been started prednisone oral has been started as well neb treatments this seems to be recurrent as patient was just discharged and completed a course of Augmentin QuantiFERON gold test pending along with Legionella, mycoplasma pneumonia, pneumococcal pulmonology consult thank for your help procalcitonin is 0 WBCs 9.3 continue to trend labs continue to trend respiratory status (2) Asthma: Code(s): J45.909 - Unspecified asthma, uncomplicated Status: Acute Assessment and Plan: Labs exhibit eosinophilia Neb treatments are ordered Steroids on board Pulmonology on board Continue therapy as indicated (3) Hypertension: Code(s): I10 - Essential (primary) hypertension Status: Acute Assessment and Plan: current blood pressure 115/76 change lisinopril to losartan due to cough continue to trend blood pressure adjust therapy as indicated (4) Polycythemia: Code(s): D75.1 - Secondary polycythemia Status: Acute Assessment and Plan: noted on labs dating back to 2020 pulmonology on board Time Spent With Patient Time with patient: Greater than 35 minutes Subjective Date/time seen: 01/06/22944 Interval history: 01/06/22944 Patient stated that she has been doing okay until her antibiotics or off. Patient denies any nausea, vomiting, diarrhea, constipation, sweats, fevers, chills cough. She also stated that she has been smoking however she does have this cough and her cough gets so bad that she cannot breathe or catch her breath. 01/05/22? 13:00 This is a pleasant 56-year-old female former smoker with hypertension who presented to the emergency department from home for evaluation of cough, wheezing, and shortness of breath. She has not been feeling well for several weeks and in fact she was hospitalized at this facility between 12/23/2021 and 12/25/2021 with sepsis related to community acquired pneumonia. She was discharged on Augmentin and completed the course of antibiotics this past Monday. After discharge she had several days of nausea, vomiting, and diarrhea which she attributed to the antibiotic and that has since resolved. Unfortunately over the last 2 days she has once again developed an increasing cough which has been rarely productive of whitish colored phlegm. This morning around 02:00 she was awakened from sleep with a coughing jag and she has been wheezing and short of breath since that time. On arrival to the emergency department she was given a dose of Solu-Medrol and a DuoNeb with improvement however she continues to have an oxygen requirement of 2 L to maintain her SPO2 in the mid 90s and she is being admitted in this setting. She has no known history of pulmonary disease and specifically denies history of asthma, emphysema, and COPD. 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 She has a roommate who is a smoker however they do not smoke in the house. Her home was built in the late 1970s and she has lived there for many years. She has not noticed any standing water, mold, or mildew. They have kittens at home but no other animals. She denies recent travel and sick contacts. She also denies dysphagia and concerns for aspiration. No recent fever, chills, sweats, nausea, vomiting, or diarrhea. Review of Systems Review of Systems: All systems reviewed & are unremarkable except as noted in HPI and below Exam Const: General: cooperative, no acute distress, well developed, alert, awake, ill appearing and tired appeari
--- NOTE | 2022-01-06 11:05 | PM.CNPUL ---
Assessment and Plan Assessment and plan (1) Asthma: Code(s): J45.909 - Unspecified asthma, uncomplicated Status: Acute Assessment and Plan: Patient had no respiratory symptoms until age 56 approximately 3 months ago when she developed cough that led to wheezing and shortness of breath. She was treated for pneumonia on 12/23/2021 when she had cough, shortness of breath and wheezing. After she has finished her antibiotics she has had intermittent symptoms consisting of cough, wheezing and chest tightness. She has eosinophilia which would also support an asthma diagnosis. She has improved with prednisone 40 mg started on 01/05, albuterol and ipratropium nebulizers q.4 hours. She does states she gets immediately relief from cough and chest tightness with the albuterol and ipratropium nebulizers. The patient is taking azithromycin 1st 01/05/2022. Her COVID RT PCR study is negative on 01/05/2022, urine pneumococcal and Legionella studies pending, QuantiFERON gold study is pending. Patient has no evidence of heart disease. Echocardiogram has been ordered. Of note the patient is also on lisinopril. The patient also acquired a CT on 03/2021 and in October this CT has for for kit and switch her living with the patient as well. The patient is on omeprazole and has no heartburn symptoms at this time. The patient has been exposed to multiple dust and chemical inhalations through her work and quit one month ago. I see no evidence of an interstitial lung disease on her CT scan at this time. Will follow with you. History of Present Illness History of Present Illness Consult date: 01/06/22 Chief complaint: pneumonia Narrative: 01/06/2022: This is a new pulmonary consult for shortness of breath and wheezing. 56-year-old woman with a history of hypertension, GERD and depression. Patient had no respiratory issues as a young child, she played high school basketball and had no respiratory issues up until September of 2021. At that time she developed a cough which she described as dry. It would occur 1 time in our up to many times an hour and also would completely resolve for 24 hours. The cough would get worse when she would talk or laugh and would then. When she would be quiet. At that time she denied any phlegm production or hemoptysis. Patient saw her private MD in November of 2021 and was noted to have cough, shortness of breath and wheezing on exam. She was given an inhaler of albuterol and she said that this did help her cough. Patient smoked cigarettes from age 21 to age 41 at 3/4 pack per day for total of 15 pack years. Patient smoked 1 marijuana cigarette for 25 years approximately every other day. Her last use was on 12/23/2021. Patient was exposed to secondhand smoke through her father who smoked a pipe. 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 For 1 year in the the patient tells me that on weekends she would do methamphetamine and cocaine but has done none in many many years. Patient denies any chronic rashes, chronic arthritis. Patient denies aspiration events. Patient is on omeprazole for heartburn and she has had no heartburn since her cough started on 09/2021. Patient presented to the emergency department at [facility] on 12/23/2021 with cough, dyspnea on exertion, shortness of breath and wheezing. She had saturations 88% on room air, her white blood cell count was 7.3 with 4.9% [id number], her BNP was less than 11 her D-dimer was 1.02, CT angio g demonstrated no pulmonary embolism there were patchy ground-glass infiltrates right middle lobe left upper lobe and bilateral lower lobes. Patient was treated for a pneumonia with ceftriaxone and azithromycin and improved and was discharged on Augmentin. Azithromycin was not listed on the medicines but she tells me she finished 5 days of azithromycin and came off of antibi
[2022-01-06] MEDS: guaiFENesin 600 MG/DEXTROMETHORPHAN 30 MG SR TAB 12 HR 1 TAB PO (11:59)
--- NOTE | 2022-01-06 12:45 | PCRCNOTE ---
Window of time for administration has passed. See next scheduled administration.
[2022-01-06] MEDS: MUPIROCIN 2% OINT 22 GM TUBE 1 APPLIC TOPICAL (14:47)
--- NOTE | 2022-01-06 14:51 | ECHO_ITS ---
Patient Info Name: Luci Smith Age: 56 years : 1965 Gender: Female Ht: 65 in Wt: 150 lbs BSA: 1.78 m2 HR: 99 bpm BP: 154 / 60 mmHg Technical Quality: Good Exam Date: 01/06/2022 9:36 AM Exam Location: [facility] Pulmonary Exam Room: 303 Patient Status: Inpatient Admit Date: 01/05/2022 Staff Ordering Physician: Miladis Horn PA-C Therapeutic Recreation Specialist: Jeane Biswas RDCS Attending Provider: Yared Arellano MD Referring Physician: Kory YOUNG; Exam Type: CA echo doppler color flow Study Info Indications - hypoxia htn Complete two-dimensional, color flow and Doppler transthoracic echocardiogram is performed. Summary 1. Complete two-dimensional, color flow and Doppler transthoracic echocardiogram is performed. 2. Left ventricular chamber dimension is normal. 3. Left ventricular systolic function is normal, estimated at 65-70%. 4. The left ventricular diastolic function is normal. 5. E/e' 8 is minimally elevated. 6. Right atrial mass seen extending from IVC to fossa ovalis suggestive of prominent eustachian valve which is normal variant. 7. There is trace tricuspid valve regurgitation. 8. No pulmonary hypertension, estimated pulmonary arterial systolic pressure is 28 mmHg. Left Ventricle E/e' 8 is minimally elevated. Left ventricular chamber dimension is normal. Left ventricular systolic function is normal, estimated at 65-70%. The left ventricular diastolic function is normal. Right Ventricle Right ventricular systolic function is normal and with normal TAPSE 2.1 cm. Right ventricular chamber dimension is normal. Left Atria Left atrial chamber dimension is normal. Right Atria Right atrial mass seen extending from IVC to fossa ovalis suggestive of prominent eustachian valve which is normal variant. Right atrial chamber dimension is normal. Aortic Valve The aortic valve is not well visualized. There is no aortic valve stenosis. There is no aortic valve regurgitation. Pulmonic Valve There is no pulmonic regurgitation. Mitral Valve There is no mitral valve stenosis. There is no mitral valve regurgitation. Tricuspid Valve There is trace tricuspid valve regurgitation. No pulmonary hypertension, estimated pulmonary arterial systolic pressure is 28 mmHg. Pericardium/Pleural There is no pericardial effusion. Inferior Vena Cava Normal inferior vena cava with >50% collapse upon inspiration consistent with normal right atrial pressure, 5 mmHg. Aorta The aortic root size at the sinus of Valsalva is normal. Left Ventricular Outflow Tract Name Value Normal LVOT 2D LVOT Diameter 2.0 cm LVOT Doppler LVOT Peak Gradient 6 mmHg LVOT Mean Gradient 3 mmHg LVOT VTI 25 cm LVOT VTI/AV VTI Ratio 0.9 LVOT Stroke Volume 77 ml LVOT CO 15.7 l/min LVOT CI 8.9 l/min/m2 Pulmonic Valve Na
[2022-01-07] VITALS (10 sets, daily range): BP systolic 129–148; BP diastolic 78–88; PULSE 56–88; RESP 16–20; TEMP 36.1–36.3; O2SAT 93–98
[2022-01-07] MEDS: guaiFENesin 600 MG/DEXTROMETHORPHAN 30 MG SR TAB 12 HR 1 TAB PO (01:10)
[2022-01-07 06:40] LABS: Basophils Absolute Auto 0.1 K/mm3 (0.0-0.1); Basophils Percent Auto 0.4 % (0.2-1.2); Eosinophils Absolute Auto 0.1 K/mm3 (0-0.3); Eosinophils Percent Auto 0.8 % (0-4.4); Hematocrit 44.3 % (37.0-47.0); Hemoglobin 14.8 g/dL (12.0-15.0); Immature Granulocyte Absolute 0.08 K/mm3 (0.00-0.031); Immature Granulocyte Percent A 0.6 % (0-0.5); Lymphocytes Absolute Auto 2.84 K/mm3 (0.9-3.2); Mean Corpuscular HGB Conc 33.4 g/dl (32-36); Mean Corpuscular Hemoglobin 30.8 pg (26-34); Mean Corpuscular Volume 92.3 fl (80-100); Mean Platelet Volume 9.4 fl (7.4-10.4); Monocytes Absolute Auto 0.8 K/mm3 (0.1-0.6); Monocytes Percent Auto 6.7 % (2.6-8.5); Neutrophils Absolute Auto 8.4 K/mm3 (1.3-6.7); Neutrophils Percent Auto 68.5 % (45.5-73.1); Platelet Count Result 285 k/mm3 (150-375); Red Cell Distribution Width 12.5 % (11.5-14.5); White Blood Count 12.3 K/mm3 (4.5-10.0)
[2022-01-07 07:30] LABS: Alanine Aminotransferase 28 U/L (6-35); Albumin Level 4.1 g/dL (3.5-5.1); Alkaline Phosphatase 87 U/L (38-126); Anion Gap 6 mmol/L (8-16); Aspartate Amino Transferase 27 U/L (14-36); Bilirubin,Total 0.3 mg/dL (0.2-1.3); Blood Urea Nitrogen 17 mg/dL (7-17); Calcium 9.1 mg/dL (8.4-10.2); Carbon Dioxide 26 mmol/L (22-30); Chloride 109 mmol/L (98-107); Estimated CRCL calculation 81 ml/min; Estimated Glomerular Filt Rate > 60; Glucose 120 mg/dL (65-110); Potassium 3.8 mmol/L (3.4-5.0); Sodium 141 mmol/L (137-145)
[2022-01-07 08:38] LABS: Glucose Point of Care 111 mg/dl (65-105)
--- NOTE | 2022-01-07 09:45 | PM.IMPN ---
Progress Note: A&P Assessment and Plan (1) Pneumonia: Code(s): J18.9 - Pneumonia, unspecified organism Status: Acute Assessment and Plan: chest x-ray shows increasing ground-glass opacities in the apices azithromycin has been started prednisone 40mg PO day 2 neb treatments this seems to be recurrent as patient was just discharged and completed a course of Augmentin QuantiFERON gold test pending along with Legionella, mycoplasma pneumonia, pneumococcal continue to pend pulmonology consult thank for your help procalcitonin is 0 WBCs 12.3 continue to trend labs continue to trend respiratory status (2) Asthma: Code(s): J45.909 - Unspecified asthma, uncomplicated Status: Acute Assessment and Plan: Labs exhibit eosinophilia Neb treatments are ordered Steroids on board Pulmonology on board Continue therapy as indicated (3) Hypertension: Code(s): I10 - Essential (primary) hypertension Status: Acute Assessment and Plan: current blood pressure 131/80 change lisinopril to losartan due to cough continue to trend blood pressure adjust therapy as indicated (4) Polycythemia: Code(s): D75.1 - Secondary polycythemia Status: Acute Assessment and Plan: noted on labs dating back to 2020 pulmonology on board Time Spent With Patient Time with patient: Greater than 35 minutes Subjective Date/time seen: 01/07/22 09:45 Interval history: 01/07/22944 Patient does seem to be getting any better today. Patient stated that she has not slept well due to the cough. She stated her cough started at 2:00 a.m. and hears a cough syrup and she was able to get some sleep however she are very short of breath as well. She also stated that she did breathing treatment this morning it did help. Her cough is caused pain under her left breast which she stated hurts when she pushes on it. She denies any chest pain or nausea, vomiting, diarrhea or constipation. 01/06/22944 Patient stated that she has been doing okay until her antibiotics or off. Patient denies any nausea, vomiting, diarrhea, constipation, sweats, fevers, chills cough. She also stated that she has been smoking however she does have this cough and her cough gets so bad that she cannot breathe or catch her breath. 01/05/22? 13:00 This is a pleasant 56-year-old female former smoker with hypertension who presented to the emergency department from home for evaluation of cough, wheezing, and shortness of breath. She has not been feeling well for several weeks and in fact she was hospitalized at this facility between 12/23/2021 and 12/25/2021 with sepsis related to community acquired pneumonia. She was discharged on Augmentin and completed the course of antibiotics this past Monday. After discharge she had several days of nausea, vomiting, and diarrhea which she attributed to the antibiotic and that has since resolved. Unfortunately over the last 2 days she has once again developed an increasing cough which has been rarely productive of whitish colored phlegm. This morning around 02:00 she was awakened from sleep with a coughing jag and she has been wheezing and short of breath since that time. On arrival to the emergency department she was given a dose of Solu-Medrol and a DuoNeb with improvement however she continues to have an oxygen requirement of 2 L to maintain her SPO2 in the mid 90s and she is being admitted in this setting. She has no known history of pulmonary disease and specifically denies history of asthma, emphysema, and COPD. 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 She has a roommate who is a smoker however they do not smoke in the house. Her home was built in the late 1970s and she has lived there
[2022-01-07] MEDS: IPRATROPIUM BR 0.02% INH SOLN 0.5 MG/2.5 ML VIAL INHALATION ×3 (09:58→21:54)
[2022-01-07] MEDS: ALBUTEROL SULFATE NEB 2.5 MG/3 ML INH INHALATION ×3 (09:58→21:54)
[2022-01-07] MEDS: LOSARTAN POTASSIUM 50 MG TABLET PO (10:20)
[2022-01-07] MEDS: PANTOPRAZOLE 40 MG TABLET PO ×2 (10:20→19:55)
[2022-01-07] MEDS: predniSONE 20 MG TABLET 40 MG PO (10:20)
[2022-01-07] MEDS: SERTRALINE HCL 50 MG TABLET PO (10:20)
--- NOTE | 2022-01-07 11:44 | PM.PNPUL ---
Progress Note: A&P Assessment and Plan (1) Asthma: Code(s): J45.909 - Unspecified asthma, uncomplicated Status: Acute Assessment and Plan: 01/06 Patient had no respiratory symptoms until age 56 approximately 3 months ago when she developed cough that led to wheezing and shortness of breath. She was treated for pneumonia on 12/23/2021 when she had cough, shortness of breath and wheezing. After she has finished her antibiotics she has had intermittent symptoms consisting of cough, wheezing and chest tightness. She has eosinophilia which would also support an asthma diagnosis. She has improved with prednisone 40 mg started on 01/05, albuterol and ipratropium nebulizers q.4 hours. She does states she gets immediately relief from cough and chest tightness with the albuterol and ipratropium nebulizers. The patient is taking azithromycin 1st 01/05/2022. Her COVID RT PCR study is negative on 01/05/2022, urine pneumococcal and Legionella studies pending, QuantiFERON gold study is pending. Patient has no evidence of heart disease. Echocardiogram with LVEF 65-70%, normal diastolic function, normal left atrium, right atrium right ventricular size, normal right ventricular function. No pulmonary hypertension with an estimated PASP of 28, prominent eustachian seen in the right atrium and felt to be a normal variant. ordered. Of note the patient is also on lisinopril. The patient also acquired a cat on 03/2021 and in October this cat had 4 kittens which are living with the patient as well. The patient is on omeprazole and has no heartburn symptoms at this time. The patient has been exposed to multiple dust and chemical inhalations through her work and quit one month ago. I see no evidence of an interstitial lung disease on her CT scan at this time. 01/07/2022: Overall patient states she felt better yesterday than today. She says her coughing is increased today and she still has some left-sided keith a chest pain. Her room air sats were 96%. Patient had an overnight oximetry on room air which demonstrated a baseline saturation 93%. Low saturation 88%. Time with saturation less than or equal to 88% was 0.0 minutes. She had no wheezing on exam. White blood cell count 12.3. I will increase patient's albuterol and ipratropium nebulizers from q.6 to q.4 hours. I will continue prednisone 40 mg p.o. q.day (steroids started 01/05). Day 3 azithromycin. I will add guaifenesin 1200 mg PO Q 12 hours and tessilon pearls TID today. Regarding an infectious etiology patient's COVID RT PCR test is negative, urine Legionella, urine pneumococcal, mycoplasma IgG and IgM and QuantiFERON gold tests are pending. extended respiratory viral panel pending. In-house Pulmonary Services will resume on 01/10, call with questions. Subjective Date/time seen: 01/07/22 11:44 Interval history: ?01/06/2022:? This is a new pulmonary consult for shortness of breath and wheezing.? 56-year-old woman with a history of hypertension, GERD and depression. Patient had no respiratory issues as a young child, she played high school basketball and had no respiratory issues up until September of 2021.? At that time she developed a cough which she described as dry.? It would occur 1 time in our up to many times an hour and also would completely resolve for 24 hours.? The cough would get worse when she would talk or laugh and would then.? When she would be quiet.? At that time she denied any phlegm production or hemoptysis.? Patient saw her private MD in November of 2021 and was noted to have cough, shortness of breath and wheezing on exam.? She was given an inhaler of albuterol and she said that this did help her cough. ? Patient smoked cigarettes from age 21 to age 41 at 3/4 pack per day for total of 15 pack years.? Patient smoked 1 marijuana cigarette for 25 years approximately every other day.? Her last use was on 12/23/2021.? Patient was exposed to secondhand smok
[2022-01-07] MEDS: BENZONATATE 100 MG CAPSULE 200 MG PO ×2 (14:08→15:59)
[2022-01-08] VITALS (12 sets, daily range): BP systolic 123–146; BP diastolic 67–85; PULSE 69–100; RESP 14–18; TEMP 36.3–36.8; O2SAT 95
[2022-01-08] MEDS: guaiFENesin 600 MG/DEXTROMETHORPHAN 30 MG SR TAB 12 HR 1 TAB PO ×2 (00:02→12:10)
[2022-01-08] MEDS: IPRATROPIUM BR 0.02% INH SOLN 0.5 MG/2.5 ML VIAL INHALATION ×4 (02:52→20:32)
[2022-01-08] MEDS: ALBUTEROL SULFATE NEB 2.5 MG/3 ML INH INHALATION ×4 (02:52→20:32)
[2022-01-08 06:01] LABS: Basophils Percent Auto 0.3 % (0.2-1.2); Eosinophils Absolute Auto 0.2 K/mm3 (0-0.3); Eosinophils Percent Auto 1.3 % (0-4.4); Hematocrit 43.4 % (37.0-47.0); Hemoglobin 14.8 g/dL (12.0-15.0); Immature Granulocyte Percent A 0.8 % (0-0.5); Lymphocytes Absolute Auto 2.92 K/mm3 (0.9-3.2); Lymphocytes Percent Auto 23.4 % (18.3-44.2); Mean Corpuscular HGB Conc 34.1 g/dl (32-36); Mean Corpuscular Volume 90.8 fl (80-100); Mean Platelet Volume 9.2 fl (7.4-10.4); Monocytes Absolute Auto 0.8 K/mm3 (0.1-0.6); Monocytes Percent Auto 6.6 % (2.6-8.5); Neutrophils Absolute Auto 8.5 K/mm3 (1.3-6.7); Neutrophils Percent Auto 67.6 % (45.5-73.1); Platelet Count Result 287 k/mm3 (150-375); Red Blood Count 4.78 M/mm3 (4.2-5.4); Red Cell Distribution Width 12.2 % (11.5-14.5); White Blood Count 12.5 K/mm3 (4.5-10.0)
[2022-01-08 06:22] LABS: Alanine Aminotransferase 28 U/L (6-35); Albumin Level 4.3 g/dL (3.5-5.1); Alkaline Phosphatase 91 U/L (38-126); Anion Gap 6 mmol/L (8-16); Aspartate Amino Transferase 23 U/L (14-36); Bilirubin,Total 0.3 mg/dL (0.2-1.3); Blood Urea Nitrogen 12 mg/dL (7-17); Calcium 9.2 mg/dL (8.4-10.2); Carbon Dioxide 27 mmol/L (22-30); Chloride 107 mmol/L (98-107); Estimated CRCL calculation 81 ml/min; Estimated Glomerular Filt Rate > 60; Glucose 114 mg/dL (65-110); Magnesium 1.9 mg/dL (1.6-2.3); Potassium 3.4 mmol/L (3.4-5.0); Sodium 140 mmol/L (137-145)
[2022-01-08] MEDS: ACETAMINOPHEN 325 MG TABLET 650 MG PO ×2 (07:54→20:24)
[2022-01-08] MEDS: predniSONE 20 MG TABLET 40 MG PO (08:38)
[2022-01-08] MEDS: LOSARTAN POTASSIUM 50 MG TABLET PO (08:40)
[2022-01-08] MEDS: BENZONATATE 100 MG CAPSULE 200 MG PO ×3 (08:40→18:09)
[2022-01-08] MEDS: PANTOPRAZOLE 40 MG TABLET PO ×2 (08:41→20:24)
[2022-01-08] MEDS: SERTRALINE HCL 50 MG TABLET PO (08:41)
--- NOTE | 2022-01-08 10:30 | PM.IMPN ---
Progress Note: A&P Assessment and Plan (1) Pneumonia: Code(s): J18.9 - Pneumonia, unspecified organism Status: Acute Assessment and Plan: chest x-ray shows increasing ground-glass opacities in the apices azithromycin continued Mycroplasma was high at 4.0, probably the cause of everything prednisone 40mg PO day 3 neb treatments QuantiFERON gold test pending along with Legionella, mycoplasma pneumonia IGg 4.0, pneumococcal continue to pend pulmonology consult thank for your help procalcitonin is 0 WBCs 12.5 continue to trend labs continue to trend respiratory status (2) Asthma: Code(s): J45.909 - Unspecified asthma, uncomplicated Status: Acute Assessment and Plan: Labs exhibit eosinophilia Neb treatments are ordered Steroids on board Pulmonology on board Continue therapy as indicated (3) Hypertension: Code(s): I10 - Essential (primary) hypertension Status: Acute Assessment and Plan: current blood pressure 134/85 change lisinopril to losartan due to cough continue to trend blood pressure adjust therapy as indicated (4) Polycythemia: Code(s): D75.1 - Secondary polycythemia Status: Acute Assessment and Plan: noted on labs dating back to 2020 pulmonology on board Time Spent With Patient Time with patient: Greater than 35 minutes Subjective Date/time seen: 01/08/22 10:30 Interval history: 01/08/22 1030 Patient stated that she is doing okay she is about the same. She stated that she feels like the cough takes her breath away. She also stated that she feels kind of weak and tired. She denies any chest pain except for when she coughs however is reproducible with palpation. She denies any nausea, vomiting, diarrhea, constipation, weakness or fatigue she is very concerned she related like a visitor however still awaiting TB results. Mycoplasma came back positive for high at 4. 01/07/22 0945 Patient does seem to be getting any better today. Patient stated that she has not slept well due to the cough. She stated her cough started at 2:00 a.m. and hears a cough syrup and she was able to get some sleep however she are very short of breath as well. She also stated that she did breathing treatment this morning it did help. Her cough is caused pain under her left breast which she stated hurts when she pushes on it. She denies any chest pain or nausea, vomiting, diarrhea or constipation. 01/06/22 0945 Patient stated that she has been doing okay until her antibiotics or off. Patient denies any nausea, vomiting, diarrhea, constipation, sweats, fevers, chills cough. She also stated that she has been smoking however she does have this cough and her cough gets so bad that she cannot breathe or catch her breath. 01/05/22? 13:00 This is a pleasant 56-year-old female former smoker with hypertension who presented to the emergency department from home for evaluation of cough, wheezing, and shortness of breath. She has not been feeling well for several weeks and in fact she was hospitalized at this facility between 12/23/2021 and 12/25/2021 with sepsis related to community acquired pneumonia. She was discharged on Augmentin and completed the course of antibiotics this past Monday. After discharge she had several days of nausea, vomiting, and diarrhea which she attributed to the antibiotic and that has since resolved. Unfortunately over the last 2 days she has once again developed an increasing cough which has been rarely productive of whitish colored phlegm. This morning around 02:00 she was awakened from sleep with a coughing jag and she has been wheezing and short of breath since that time. On arrival to the emergency department she was given a dose of Solu-Medrol and a DuoNeb with improvement however she continues to have an oxygen requirement of 2 L to maintain her SPO2 in the mid 90s a
[2022-01-08] MEDS: ZOLPIDEM TARTRATE (*CRX) 5 MG TABLET 10 MG PO (21:29)
[2022-01-09] VITALS (11 sets, daily range): BP systolic 131–151; BP diastolic 78–94; PULSE 72–100; RESP 14–20; TEMP 36.3–36.8; O2SAT 93–97
[2022-01-09 06:54] LABS: Alanine Aminotransferase 29 U/L (6-35); Albumin Level 4.1 g/dL (3.5-5.1); Alkaline Phosphatase 85 U/L (38-126); Anion Gap 7 mmol/L (8-16); Aspartate Amino Transferase 20 U/L (14-36); Bilirubin,Total 0.3 mg/dL (0.2-1.3); Blood Urea Nitrogen 11 mg/dL (7-17); Calcium 9.5 mg/dL (8.4-10.2); Carbon Dioxide 26 mmol/L (22-30); Chloride 107 mmol/L (98-107); Estimated CRCL calculation 81 ml/min; Estimated Glomerular Filt Rate > 60; Glucose 112 mg/dL (65-110); Magnesium 2.1 mg/dL (1.6-2.3); Potassium 3.9 mmol/L (3.4-5.0); Sodium 140 mmol/L (137-145)
[2022-01-09 07:53] LABS: Basophils Percent Auto 0.2 % (0.2-1.2); Eosinophils Absolute Auto 0.2 K/mm3 (0-0.3); Eosinophils Percent Auto 1.7 % (0-4.4); Hematocrit 46.2 % (37.0-47.0); Hemoglobin 15.5 g/dL (12.0-15.0); Immature Granulocyte Absolute 0.09 K/mm3 (0.00-0.031); Immature Granulocyte Percent A 0.7 % (0-0.5); Lymphocytes Absolute Auto 2.95 K/mm3 (0.9-3.2); Lymphocytes Percent Auto 23.8 % (18.3-44.2); Mean Corpuscular HGB Conc 33.5 g/dl (32-36); Mean Corpuscular Hemoglobin 30.8 pg (26-34); Mean Corpuscular Volume 91.8 fl (80-100); Mean Platelet Volume 9.4 fl (7.4-10.4); Monocytes Absolute Auto 0.8 K/mm3 (0.1-0.6); Monocytes Percent Auto 6.5 % (2.6-8.5); Neutrophils Absolute Auto 8.3 K/mm3 (1.3-6.7); Neutrophils Percent Auto 67.1 % (45.5-73.1); Platelet Count Result 335 k/mm3 (150-375); Red Blood Count 5.03 M/mm3 (4.2-5.4); Red Cell Distribution Width 12.3 % (11.5-14.5); White Blood Count 12.4 K/mm3 (4.5-10.0)
[2022-01-09] MEDS: ALBUTEROL SULFATE NEB 2.5 MG/3 ML INH INHALATION ×3 (08:07→21:07)
[2022-01-09] MEDS: IPRATROPIUM BR 0.02% INH SOLN 0.5 MG/2.5 ML VIAL INHALATION ×3 (08:07→21:06)
[2022-01-09] MEDS: LOSARTAN POTASSIUM 50 MG TABLET PO (08:14)
[2022-01-09] MEDS: BENZONATATE 100 MG CAPSULE 200 MG PO ×3 (08:14→16:06)
[2022-01-09] MEDS: predniSONE 20 MG TABLET 40 MG PO (08:14)
[2022-01-09] MEDS: PANTOPRAZOLE 40 MG TABLET PO ×2 (08:14→20:56)
[2022-01-09] MEDS: SERTRALINE HCL 50 MG TABLET PO (08:14)
--- NOTE | 2022-01-09 09:16 | P.PNIM_ITS ---
Progress Note: A&P Assessment and Plan (1) Pneumonia: Code(s): J18.9 - Pneumonia, unspecified organism Status: Acute Assessment and Plan: * chest x-ray shows increasing ground-glass opacities in the apices * azithromycin continued day 5 * Mycroplasma was high at 4.0, probably the cause at this point * prednisone 40mg PO day 4 * neb treatments * QuantiFERON gold test pending along with Legionella, mycoplasma pneumonia IGg 4.0, pneumococcal continue to pend * pulmonology consult thank for your help * procalcitonin is 0 * WBCs 12.4 * continue to trend labs * continue to trend respiratory status * Cough is still persistent, added guaifenesin DM and Tessalon pearls available (2) Asthma: Code(s): J45.909 - Unspecified asthma, uncomplicated Status: Acute Assessment and Plan: * Labs exhibit eosinophilia, looks to be resolved at this time * Neb treatments are ordered * Steroids on board * Pulmonology on board * Continue therapy as indicated (3) Hypertension: Code(s): I10 - Essential (primary) hypertension Status: Acute Assessment and Plan: * current blood pressure 150/89 * change lisinopril to losartan due to cough * continue to trend blood pressure * adjust therapy as indicated (4) Polycythemia: Code(s): D75.1 - Secondary polycythemia Status: Acute Assessment and Plan: * noted on labs dating back to 2020 * pulmonology on board (5) Pleuritic chest pain: Code(s): R07.81 - Pleurodynia Status: Acute Assessment and Plan: * Related to uncontrolled cough * [place] ordered * Cough medications on board * Continue to trend pain Time Spent With Patient Time with patient: Greater than 35 minutes Subjective Date/time seen: 01/09/22 09:16 Interval history: 01/09/22 0915 Patient seems to be doing better. However she did started having a coughing fit while I was in there and she turns be read and her cough sounds like a rolling cough. She also coughs so hard that she looks like she is going to vomit. She did say that she got better sleep last night. She did say that her cough is ge tting better. Still awaiting for the TB test. She looks better and she is ready to go 01/08/22 1030 Patient stated that she is doing okay she is about the same. She stated that she feels like the cough takes her breath away. She also stated that she feels kind of weak and tired. She denies any chest pain except for when she coughs however is reproducible with palpation. She denies any nausea, vomiting, diarrhea, constipation, weakness or fatigue she is very concerned she related like a visitor however still awaiting TB results. Mycoplasma came back positive for high at 4. 01/07/22 0945 Patient does seem to be getting any better today. Patient stated that she has not slept well due to the cough. She stated her cough started at 2:00 a.m. and hears a cough syrup and she was able to get some sleep however she are very short of breath as well. She also stated that she did breathing treatment this morning it did help. Her cough is caused pain under her left breast which she stated hurts when she pushes on it. She denies any chest pain or nausea, vomiting, diarrhea or constipation. 01/06/22 0945 Patient stated that she has been doing okay until her antibiotics or off. Patient denies any nausea, vomiting, diarrhea, constipation, sweats, fever
--- NOTE | 2022-01-09 09:16 | PM.IMPN ---
Progress Note: A&P Assessment and Plan (1) Pneumonia: Code(s): J18.9 - Pneumonia, unspecified organism Status: Acute Assessment and Plan: chest x-ray shows increasing ground-glass opacities in the apices azithromycin continued day 5 Mycroplasma was high at 4.0, probably the cause at this point prednisone 40mg PO day 4 neb treatments QuantiFERON gold test pending along with Legionella, mycoplasma pneumonia IGg 4.0, pneumococcal continue to pend pulmonology consult thank for your help procalcitonin is 0 WBCs 12.4 continue to trend labs continue to trend respiratory status Cough is still persistent, added guaifenesin DM and Tessalon pearls available (2) Asthma: Code(s): J45.909 - Unspecified asthma, uncomplicated Status: Acute Assessment and Plan: Labs exhibit eosinophilia, looks to be resolved at this time Neb treatments are ordered Steroids on board Pulmonology on board Continue therapy as indicated (3) Hypertension: Code(s): I10 - Essential (primary) hypertension Status: Acute Assessment and Plan: current blood pressure 150/89 change lisinopril to losartan due to cough continue to trend blood pressure adjust therapy as indicated (4) Polycythemia: Code(s): D75.1 - Secondary polycythemia Status: Acute Assessment and Plan: noted on labs dating back to 2020 pulmonology on board (5) Pleuritic chest pain: Code(s): R07.81 - Pleurodynia Status: Acute Assessment and Plan: Related to uncontrolled cough [place] ordered Cough medications on board Continue to trend pain Time Spent With Patient Time with patient: Greater than 35 minutes Subjective Date/time seen: 01/09/22 09:16 Interval history: 01/09/22 0915 Patient seems to be doing better. However she did started having a coughing fit while I was in there and she turns be read and her cough sounds like a rolling cough. She also coughs so hard that she looks like she is going to vomit. She did say that she got better sleep last night. She did say that her cough is getting better. Still awaiting for the TB test. She looks better and she is ready to go 01/08/22 1030 Patient stated that she is doing okay she is about the same. She stated that she feels like the cough takes her breath away. She also stated that she feels kind of weak and tired. She denies any chest pain except for when she coughs however is reproducible with palpation. She denies any nausea, vomiting, diarrhea, constipation, weakness or fatigue she is very concerned she related like a visitor however still awaiting TB results. Mycoplasma came back positive for high at 4. 01/07/22 0945 Patient does seem to be getting any better today. Patient stated that she has not slept well due to the cough. She stated her cough started at 2:00 a.m. and hears a cough syrup and she was able to get some sleep however she are very short of breath as well. She also stated that she did breathing treatment this morning it did help. Her cough is caused pain under her left breast which she stated hurts when she pushes on it. She denies any chest pain or nausea, vomiting, diarrhea or constipation. 01/06/22 0945 Patient stated that she has been doing okay until her antibiotics or off. Patient denies any nausea, vomiting, diarrhea, constipation, sweats, fevers, chills cough. She also stated that she has been smoking however she does have this cough and her cough gets so bad that she cannot breathe or catch her breath. 01/05/22? 13:00 This is a pleasant 56-year-old female former smoker with hypertension who presented to the emergency department from home for evaluation of cough, wheezing, and shortness of breath. She has not been feeling well for several weeks and in fact she was hospitalized at this facility between 12/23/2021 and
[2022-01-09] MEDS: guaiFENesin 600 MG/DEXTROMETHORPHAN 30 MG SR TAB 12 HR 1 TAB PO (09:28)
[2022-01-09] MEDS: HYDROcodone/acetaminophen (*CRX) 5-325 MG TABLET 1 TAB PO (09:55)
--- NOTE | 2022-01-09 11:29 | PC.NURSE ---
lidocaine patch ordered for L rib pain r.t coughing.
[2022-01-09] MEDS: LIDOCAINE 5% PATCH 1 PATCH TRANSDERM (12:28)
[2022-01-09 14:16] LABS: Pneumococcal Antigen Urine Not Detected (Not Detected)
[2022-01-09] MEDS: ALPRAZolam (*CRX) 0.5 MG TABLET PO (14:27)
[2022-01-09] MEDS: HYDROmorphone HCL INJ (*CRX) 1 MG/ML SYR IV PUSH ×2 (14:27→20:56)
--- NOTE | 2022-01-09 15:30 | PC.NURSE ---
sputum culture preliminary reported to CECILIO Hogan.
--- NOTE | 2022-01-09 18:06 | PC.NURSE ---
all med passed by Erika Breeding this shift.
[2022-01-09 20:28] LABS: Legionella pneumophila Ag Ur Not Detected (Not Detected)
[2022-01-09] MEDS: ZOLPIDEM TARTRATE (*CRX) 5 MG TABLET 10 MG PO (22:55)
[2022-01-10] VITALS (7 sets, daily range): BP systolic 132–140; BP diastolic 80–87; PULSE 81–108; RESP 18–20; TEMP 36.1–36.3; O2SAT 94–95
[2022-01-10 07:47] LABS: Basophils Percent Auto 0.3 % (0.2-1.2); Eosinophils Absolute Auto 0.2 K/mm3 (0-0.3); Hematocrit 42.9 % (37.0-47.0); Hemoglobin 14.5 g/dL (12.0-15.0); Immature Granulocyte Absolute 0.12 K/mm3 (0.00-0.031); Lymphocytes Absolute Auto 2.73 K/mm3 (0.9-3.2); Lymphocytes Percent Auto 22.5 % (18.3-44.2); Mean Corpuscular HGB Conc 33.8 g/dl (32-36); Mean Corpuscular Hemoglobin 30.9 pg (26-34); Mean Corpuscular Volume 91.3 fl (80-100); Monocytes Absolute Auto 0.7 K/mm3 (0.1-0.6); Neutrophils Absolute Auto 8.3 K/mm3 (1.3-6.7); Neutrophils Percent Auto 68.2 % (45.5-73.1); Platelet Count Result 292 k/mm3 (150-375); Red Cell Distribution Width 12.4 % (11.5-14.5); White Blood Count 12.1 K/mm3 (4.5-10.0)
[2022-01-10 07:57] LABS: Alanine Aminotransferase 25 U/L (6-35); Albumin Level 3.8 g/dL (3.5-5.1); Alkaline Phosphatase 83 U/L (38-126); Anion Gap 3 mmol/L (8-16); Aspartate Amino Transferase 19 U/L (14-36); Bilirubin,Total 0.2 mg/dL (0.2-1.3); Blood Urea Nitrogen 14 mg/dL (7-17); Calcium 9.2 mg/dL (8.4-10.2); Carbon Dioxide 31 mmol/L (22-30); Chloride 103 mmol/L (98-107); Estimated CRCL calculation 70 ml/min; Estimated Glomerular Filt Rate > 60; Glucose 99 mg/dL (65-110); Potassium 3.8 mmol/L (3.4-5.0); Sodium 137 mmol/L (137-145)
[2022-01-10] MEDS: BENZONATATE 100 MG CAPSULE 200 MG PO ×3 (08:25→16:43)
[2022-01-10] MEDS: guaiFENesin 600 MG/DEXTROMETHORPHAN 30 MG SR TAB 12 HR 1 TAB PO (08:25)
[2022-01-10] MEDS: predniSONE 20 MG TABLET 40 MG PO (08:25)
[2022-01-10] MEDS: PANTOPRAZOLE 40 MG TABLET PO (08:25)
[2022-01-10] MEDS: SERTRALINE HCL 50 MG TABLET PO (08:25)
[2022-01-10] MEDS: LOSARTAN POTASSIUM 50 MG TABLET PO (08:25)
[2022-01-10] MEDS: CLINDAMYCIN HCL 150 MG CAP 300 MG PO ×2 (08:26→13:13)
--- NOTE | 2022-01-10 08:45 | P.PNIM_ITS ---
Progress Note: A&P Assessment and Plan (1) Pneumonia: Code(s): J18.9 - Pneumonia, unspecified organism Status: Acute Assessment and Plan: * chest x-ray shows increasing ground-glass opacities in the apices * azithromycin continued day 6 * Mycroplasma was high at 4.0, could be the cause at this point * prednisone 40mg PO day 5 * neb treatments * QuantiFERON gold test pending * Legionella negative, mycoplasma pneumonia IGg 4.0, pneumococcal not detected, M. PNA IgM still pening * pathology for repiratory panel still pending * pulmonology consult thank for your help * procalcitonin is 0 * WBCs 12.1 * continue to trend labs * continue to trend respiratory status * Cough is getting better, added guaifenesin DM and Tessalon pearls available (2) Asthma: Code(s): J45.909 - Unspecified asthma, uncomplicated Status: Acute Assessment and Plan: * Labs exhibit eosinophilia, looks to be resolved at this time * Neb treatments are ordered * Steroids on board * Pulmonology on board * Continue therapy as indicated (3) Hypertension: Code(s): I10 - Essential (primary) hypertension Status: Acute Assessment and Plan: * current blood pressure 140/80 * change lisinopril to losartan due to cough * continue to trend blood pressure * adjust therapy as indicated (4) Polycythemia: Code(s): D75.1 - Secondary polycythemia Status: Acute Assessment and Plan: * noted on labs dating back to 2020 * pulmonology on board (5) Pleuritic chest pain: Code(s): R07.81 - Pleurodynia Status: Acute Assessment and Plan: * Related to uncontrolled cough * [place] ordered, Dilaudid added * Cough medications on board * Continue to trend pain (6) Anxiety: Code(s): F41.9 - Anxiety disorder, unspecified Status: Acute Assessment and Plan: * Having some problems with mental status * due to isolation * Xanax added for further comfort Time Spent With Patient Time with patient: Greater than 35 minutes Subjective Date/time seen: 01/10/22844 Interval history: 01/10/22844 Patient is very anxious today. she stated that her cough was better today. She also stated that her breathing was still very tight it was very hard for her to take deep breath. She has been get up out of the bathroom however she is very anxious about continue being on isolation. She denied any chest pain, nausea, vomiting, diarrhea, constipation weakness or fatigue. She did state that she is concerned about the isolation she is not getting things a timely manner. She is also still having left-sided pain under breast from coughing. She is contemplating leaving AMA, did talk her down and we did compromise. Hopefully tomorrow should be able to leave and be discharged. Have talked to Dr. Slater multiple time about the case. Clindamycin has been added for further coverage. Concerned about the gram positive cocci in chain that was found on the sputum culture. TB test is still pending. 01/09/22 0915 Patient seems to be doing better. However she did started having a coughing fit while I was in there and she turns be read and her cough sounds like a rolling cough. She also coughs so hard that she looks like she is going to vomit. She did say that she got better sleep last night. She did say that her cough is getting better. Sti
--- NOTE | 2022-01-10 08:45 | PM.IMPN ---
Progress Note: A&P Assessment and Plan (1) Pneumonia: Code(s): J18.9 - Pneumonia, unspecified organism Status: Acute Assessment and Plan: chest x-ray shows increasing ground-glass opacities in the apices azithromycin continued day 6 Mycroplasma was high at 4.0, could be the cause at this point prednisone 40mg PO day 5 neb treatments QuantiFERON gold test pending Legionella negative, mycoplasma pneumonia IGg 4.0, pneumococcal not detected, M. PNA IgM still pening pathology for repiratory panel still pending pulmonology consult thank for your help procalcitonin is 0 WBCs 12.1 continue to trend labs continue to trend respiratory status Cough is getting better, added guaifenesin DM and Tessalon pearls available (2) Asthma: Code(s): J45.909 - Unspecified asthma, uncomplicated Status: Acute Assessment and Plan: Labs exhibit eosinophilia, looks to be resolved at this time Neb treatments are ordered Steroids on board Pulmonology on board Continue therapy as indicated (3) Hypertension: Code(s): I10 - Essential (primary) hypertension Status: Acute Assessment and Plan: current blood pressure 140/80 change lisinopril to losartan due to cough continue to trend blood pressure adjust therapy as indicated (4) Polycythemia: Code(s): D75.1 - Secondary polycythemia Status: Acute Assessment and Plan: noted on labs dating back to 2020 pulmonology on board (5) Pleuritic chest pain: Code(s): R07.81 - Pleurodynia Status: Acute Assessment and Plan: Related to uncontrolled cough [place] ordered, Dilaudid added Cough medications on board Continue to trend pain (6) Anxiety: Code(s): F41.9 - Anxiety disorder, unspecified Status: Acute Assessment and Plan: Having some problems with mental status due to isolation Xanax added for further comfort Time Spent With Patient Time with patient: Greater than 35 minutes Subjective Date/time seen: 01/10/22844 Interval history: 01/10/22844 Patient is very anxious today. she stated that her cough was better today. She also stated that her breathing was still very tight it was very hard for her to take deep breath. She has been get up out of the bathroom however she is very anxious about continue being on isolation. She denied any chest pain, nausea, vomiting, diarrhea, constipation weakness or fatigue. She did state that she is concerned about the isolation she is not getting things a timely manner. She is also still having left-sided pain under breast from coughing. She is contemplating leaving AMA, did talk her down and we did compromise. Hopefully tomorrow should be able to leave and be discharged. Have talked to Dr. Slater multiple time about the case. Clindamycin has been added for further coverage. Concerned about the gram positive cocci in chain that was found on the sputum culture. TB test is still pending. 01/09/22 0915 Patient seems to be doing better. However she did started having a coughing fit while I was in there and she turns be read and her cough sounds like a rolling cough. She also coughs so hard that she looks like she is going to vomit. She did say that she got better sleep last night. She did say that her cough is getting better. Still awaiting for the TB test. She looks better and she is ready to go 01/08/22 1030 Patient stated that she is doing okay she is about the same. She stated that she feels like the cough takes her breath away. She also stated that she feels kind of weak and tired. She denies any chest pain except for when she coughs however is reproducible with palpation. She denies any nausea, vomiting, diarrhea, constipation, weakness or fatigue she is very concerned she related like a visitor however still awaiting TB resul
--- NOTE | 2022-01-10 09:04 | PC.NURSE ---
called main lab for streptococcus rapid test, lab out of test will be to change order to streptococcus culture, informed provider CECILIO Hogan
[2022-01-10] MEDS: ALPRAZolam (*CRX) 0.5 MG TABLET PO (09:34)
[2022-01-10] MEDS: ALBUTEROL SULFATE NEB 2.5 MG/3 ML INH INHALATION ×2 (09:43→14:10)
[2022-01-10] MEDS: IPRATROPIUM BR 0.02% INH SOLN 0.5 MG/2.5 ML VIAL INHALATION ×2 (09:43→14:10)
--- NOTE | 2022-01-10 09:48 | PC.NURSE ---
called [facility] per PROOFER APPRENTICE Hogan request, sputum culture [phone]
--- NOTE | 2022-01-10 18:32 | PC.NURSE ---
Pt signing AMA form with charge nurse Asia, informed by Asia about dangers of leaving AMA, and importance to continue isolation until test results.
--- NOTE | 2022-01-10 18:45 | PM.PNPUL ---
Subjective Date/time seen: 01/10/22 18:45 Interval history: follow up : 56-year-old woman is seen in follow up for asthma and pneumonia history of hypertension, GERD and depression. No respiratory issues until September of 2021.?She developed a cough which she described as dry, occurred from once an hour up to multiple times per hour then resolve for 24 hours.? The cough increased with talking or laughing, resolve with being quiet.? Patient saw her private MD in November of 2021 and was noted to have cough, shortness of breath and wheezing on exam.? She was given an inhaler of albuterol and she said that this did help her cough. Tobacco: smoked cigarettes from age 21 to age 41 at 3/4 pack per day for total of 15 pack years.? 1 marijuana cigarette for 25 years approximately every other day.? Her last use was on 12/23/2021.? Patient was exposed to secondhand smoke through her father who smoked a pipe.? Patient's current stitcher feeder smokes in the garage with a garage door opened and the door to the house closed.?? Patient denies aspiration events.? Patient is on omeprazole for heartburn and she has had no heartburn since her cough started on 09/2021. Patient presented to the emergency department at [facility] on 12/23/2021 with cough, dyspnea on exertion, shortness of breath and wheezing. ? She had saturations 88% on room air, her white blood cell count was 7.3 with 4.9% [id number]/[id number],? her BNP was less than 11 her D-dimer was 1.02,? CT angio g demonstrated no pulmonary embolism there were patchy ground-glass infiltrates right middle lobe left upper lobe and bilateral lower lobes.? Patient was treated for a pneumonia with ceftriaxone? and azithromycin and improved and was discharged on? Augmentin. ? Azithromycin was not listed on the medicines but she tells me she finished 5 days of azithromycin and came off of antibiotics about 12/30.? she tells me when she left the hospital she was 70% back to normal. Overall she did improved? until 628 when she developed worsening coughbut then it does again developed cough, shortness of breath and wheezing. She presented to the emergency room on 01/05/2022? with shortness of breath, cough,? bilateral wheezing with a white blood cell count of 9.3, eosinophils 6.1%=567,? ? Room air blood gas was 7.4 11/06/2070. , COVID RT PCR study was negative. she required 2 L nasal cannula oxygen.? Chest x-ray demonstrated patchy infiltrates.? CT angiogram of the chest demonstrated no pulmonary embolism improved perihilar infiltrates with a small new left upper lobe ground-glass infiltrate. ? Patient was treated with prednisone 40 mg, albuterol and ipratropium nebulizers and azithromycin. 01/06/2022: ? Today the patient tells me that she has 50% back to normal.? She still has a cough, ? Mostly dry and hacking.? She denies fever, chills, rigors, phlegm or hemoptysis.? She states when she receives the nebulized treatment she gets immediate relief and the cough improves. ? She is currently on room air with saturations 93%. 01/07/2022: ? Overall patient states she felt better yesterday than today.? She says her coughing is increased today and she still has some left-sided keith a chest pain.? Her room air sats were 96%.? Patient had an overnight oximetry on room air which demonstrated a baseline saturation 93%.? Low saturation 88%.? Time with saturation less than or equal to 88% was 0.0 minutes.? She had no wheezing on exam.? White blood cell count 12.3. *01/06/2022 Echo Summary ; LV normal; LVEF 65-70%.LV diastolic function is normal. Right atrial mass seen extending from IVC to fossa ovalis suggestive of prominent eustachian valve which is normal variant. Tr tricuspid valve regurgitation. No pulmonary hypertension, estimated pulmonary arterial systolic pressure 28 mmHg.Right Ventricle ? Right ventricular size and function is normal. RA size is normal. * 12/23/2021 CTA chest PE protocol for Shortness of breath, cough. Tachycardia.
--- NOTE | 2022-01-11 14:36 | P.DS_ITS ---
DS: Admitting Diagnosis Discharge Date 01/10/22 190 Admitting Diagnosis Recurring PNA DS: Discharge Diagnosis Discharge Diagnosis (1) Pneumonia: Code(s): J18.9 - Pneumonia, unspecified organism Status: Acute Assessment and Plan: * chest x-ray shows increasing ground-glass opacities in the apices * azithromycin continued day 6 * Mycroplasma was high at 4.0, could be the cause at this point * prednisone 40mg PO day 5 * neb treatments * QuantiFERON gold test pending * Legionella negative, mycoplasma pneumonia IGg 4.0, pneumococcal not detected, M. PNA IgM still pening * pathology for repiratory panel still pending * pulmonology consult thank for your help * procalcitonin is 0 * WBCs 12.1 * continue to trend labs * continue to trend respiratory status * Cough is getting better, added guaifenesin DM and Tessalon pearls available (2) Asthma: Code(s): J45.909 - Unspecified asthma, uncomplicated Status: Acute Assessment and Plan: * Labs exhibit eosinophilia, looks to be resolved at this time * Neb treatments are ordered * Steroids on board * Pulmonology on board * Continue therapy as indicated (3) Hypertension: Code(s): I10 - Essential (primary) hypertension Status: Acute Assessment and Plan: * current blood pressure 140/80 * change lisinopril to losartan due to cough * continue to trend blood pressure * adjust therapy as indicated (4) Polycythemia: Code(s): D75.1 - Secondary polycythemia Status: Acute Assessment and Plan: * noted on labs dating back to 2020 * pulmonology on board (5) Pleuritic chest pain: Code(s): R07.81 - Pleurodynia Status: Acute Assessment and Plan: * Related to uncontrolled cough * [place] ordered, Dilaudid added * Cough medications on board * Continue to trend pain (6) Anxiety: Code(s): F41.9 - Anxiety disorder, unspecified Status: Acute Assessment and Plan: * Having some problems with mental status * due to isolation * Xanax added for further comfort DS: Summary Hospital Course Hospital Course: Patient is a 56-year-old female with a past medical history of depression, hypertension, GERD who presented to the ED with cough and shortness of breath. Chest x-ray and CTA did noted pneumonia better in the hilar however worse in the apices. Pulmonology was consulted. White blood cell count was elevated procalcitonin was 0. Patient was started on prednisone 40 mg p.o. trend the day. She was also started on IV azithromycin. Patient did develop pleuritic chest pain due to the cough. Patient was also started on nebs and inhalers. TB test is still pending however mycoplasma pneumoniae IgG is 4.0 elevated. Patient was also started on clindamycin due to the failed treatment. Patient decided to leave [place] due to the fact that she was in isolation and she stated that she was going to go home and isolate herself at home or she could become with her catheter on shower however when asked her recommended due to make her more comfortable here she stated that she would like to have a human. Patient was given the risk about her condition. Will continue to follow her labs will order clindamycin p.o.. Status at Discharge Functional status at discharge: independent ambulation Overall status at discharge: patient is progressing back to baseline Time Spent with
--- NOTE | 2022-01-11 14:36 | PM.DS ---
DS: Admitting Diagnosis Discharge Date 01/10/22 190 Admitting Diagnosis Recurring PNA DS: Discharge Diagnosis Discharge Diagnosis (1) Pneumonia: Code(s): J18.9 - Pneumonia, unspecified organism Status: Acute Assessment and Plan: chest x-ray shows increasing ground-glass opacities in the apices azithromycin continued day 6 Mycroplasma was high at 4.0, could be the cause at this point prednisone 40mg PO day 5 neb treatments QuantiFERON gold test pending Legionella negative, mycoplasma pneumonia IGg 4.0, pneumococcal not detected, M. PNA IgM still pening pathology for repiratory panel still pending pulmonology consult thank for your help procalcitonin is 0 WBCs 12.1 continue to trend labs continue to trend respiratory status Cough is getting better, added guaifenesin DM and Tessalon pearls available (2) Asthma: Code(s): J45.909 - Unspecified asthma, uncomplicated Status: Acute Assessment and Plan: Labs exhibit eosinophilia, looks to be resolved at this time Neb treatments are ordered Steroids on board Pulmonology on board Continue therapy as indicated (3) Hypertension: Code(s): I10 - Essential (primary) hypertension Status: Acute Assessment and Plan: current blood pressure 140/80 change lisinopril to losartan due to cough continue to trend blood pressure adjust therapy as indicated (4) Polycythemia: Code(s): D75.1 - Secondary polycythemia Status: Acute Assessment and Plan: noted on labs dating back to 2020 pulmonology on board (5) Pleuritic chest pain: Code(s): R07.81 - Pleurodynia Status: Acute Assessment and Plan: Related to uncontrolled cough [place] ordered, Dilaudid added Cough medications on board Continue to trend pain (6) Anxiety: Code(s): F41.9 - Anxiety disorder, unspecified Status: Acute Assessment and Plan: Having some problems with mental status due to isolation Xanax added for further comfort DS: Summary Hospital Course Hospital Course: Patient is a 56-year-old female with a past medical history of depression, hypertension, GERD who presented to the ED with cough and shortness of breath. Chest x-ray and CTA did noted pneumonia better in the hilar however worse in the apices. Pulmonology was consulted. White blood cell count was elevated procalcitonin was 0. Patient was started on prednisone 40 mg p.o. trend the day. She was also started on IV azithromycin. Patient did develop pleuritic chest pain due to the cough. Patient was also started on nebs and inhalers. TB test is still pending however mycoplasma pneumoniae IgG is 4.0 elevated. Patient was also started on clindamycin due to the failed treatment. Patient decided to leave [place] due to the fact that she was in isolation and she stated that she was going to go home and isolate herself at home or she could become with her catheter on shower however when asked her recommended due to make her more comfortable here she stated that she would like to have a human. Patient was given the risk about her condition. Will continue to follow her labs will order clindamycin p.o.. Status at Discharge Functional status at discharge: independent ambulation Overall status at discharge: patient is progressing back to baseline Time Spent with Patient Time attestation: Total time spent providing and/or coordinating discharge services: Exam Const: General: cooperative, no acute distress, well developed, alert, awake, ill appearing and tired appearing Nutritional Appearance: well nourished Orientation/consciousness: oriented to person, oriented to place, oriented to time and patient oriented x3 Limitations: no limitations HENMT: Head: normal to inspection Ears: hearing grossly normal bilaterally General nose exam: Normal external nose
--- NOTE | 2022-01-11 15:02 | PC.NURSE ---
patient left ama yesterday. Nima would like her to pickling operator an antibiotic. Attempted to reach Luci at [phone] to let her know about antibiotic at pharmacy. message left to call me back so that I can let her know.
--- NOTE | 2022-01-11 15:28 | PC.NURSE ---
Luci returned call and is aware of medication at [facility]. she states that she will pick it up as soon as it is ready
[2022-01-11 21:12] LABS: Mycoplasma IgM Antibody Titer 119 U/mL (<770)
[2022-01-12 11:16] LABS: NIL 0.01 IU/mL; Quantiferon TB Plus, 1T NEGATIVE (NEGATIVE); TB1-NIL 0.01 IU/mL
[2022-01-12 13:38] LABS: Reference Lab Test Result Not Detected
--- NOTE | 2022-01-14 08:42 | PC.NURSE ---
Tb- mycoplasma and respiratory panel are all negative. Aristides Hogan NP aware.
== END 2022-01-10 18:45 | disposition left against medical advice (07) | DRG 139 ==
LOC: ANHED 11:02 → ANH2MED 12:49 → ANH3MEDSUR 13:40
PROVIDERS: Internal Medicine Pulmonary Disease; Physician Assistant; Admitting Provider Chiropractor; Emergency Provider Emergency Medicine; PCP Family Medicine; Visit Provider Nurse Practitioner
DX: J18.9 Pneumonia, unspecified organism (principal); Z20.822 Contact with and (suspected) exposure to COVID-19; R09.02 Hypoxemia; I10 Essential (primary) hypertension; D75.1 Secondary polycythemia; Z79.899 Other long term (current) drug therapy; Z87.891 Personal history of nicotine dependence; K21.9 Gastro-esophageal reflux disease without esophagitis; J45.909 Unspecified asthma, uncomplicated; F90.9 Attention-deficit hyperactivity disorder, unspecified type; F32.A Depression, unspecified; Z82.49 Family history of ischemic heart disease and other diseases of the circulatory system; F41.9 Anxiety disorder, unspecified; R07.81 Pleurodynia; Z87.01 Personal history of pneumonia (recurrent)
CPT/HCPCS: 36415; 36600; 71045; 71275; 80053; 82375; 82805; 82948; 83050; 83735; 84145; 85025; 85380; 86140; 86480; 86738; 87040; 87070; 87205; 87449; 87486; 87581; 87633; 87899; 93005; 93306; 94640; 94762; 96361; 96365; 96367; 96375; 99285; A9270; C9803; G0378; G0379; J0456; J1170; J2543; J2930; J7030; J7040; J7512; Q9967; U0003; U0005

== ENCOUNTER 2022-01-25 15:26 | Inpatient (IN) | payer MEDICAID, SELFPAY ==
[2022-01-25] VITALS (11 sets, daily range): BP systolic 132–158; BP diastolic 70–82; PULSE 78–112; RESP 18–100; TEMP 36.3–36.7; O2SAT 92–96; BMI 25.5
--- NOTE | ~2022-01-25 | XR_ITS ---
EXAMINATION: XR chest 2V DATE: 01/27/2022 13:21 INDICATION: Shortness of breath. TECHNIQUE: Frontal and lateral views of the chest were obtained. COMPARISON: Chest single view 01/25/2022, chest CT 01/25/2022 FINDINGS: There is mild scarring at left lung apex. No pleural effusion or pneumothorax. The heart si ze is normal. IMPRESSION: 1. Mild scarring at left lung apex. Reviewed, dictated and finalized at location A.
--- NOTE | ~2022-01-25 | XR_ITS ---
MODIFIED ESOPHAGRAM HISTORY: Dysphagia. TECHNIQUE: Modified barium esophagram was performed by speech pathologist under radiologist fluorosco pic guidance. This was recorded on tape. The exam was reviewed on 01/31/2022 15:18 CDT. The DAP for this procedure was 0.797 Gycm2. Fluoroscopy time is 1.2 minutes. FINDINGS: Lateral projection of the cervical spine demonstrates normal alignment. There is normal s wallowing function without evidence for penetration or aspiration.. IMPRESSION: 1: Normal swallowing function without penetration or aspiration. 2: Please refer to speech pathologist report for additional detail. Reviewed, dictated and finalized at location A.
--- NOTE | ~2022-01-25 | CT_ITS ---
EXAMINATION: CTA chest PE protocol DATE: 01/25/2022 19:20 INDICATION: cough, dyspnea TECHNIQUE: Computed tomography angiography (CTA) of the chest was performed with 100 mL Omnipaque-350 intravenous contrast timed to evaluate the pulmonary arteries. Coronal maximum intensity projection 3D-reconstructions were created by the technologist. The dose-length product (DLP) was 250.26 mGy-cm. Automated exposure control and iterative reconstruction technique were employed. COMPARISON: 01/05/2022. FINDINGS: Study quality: Adequate. Pulmonary arteries: No pulmonary emboli detected. Thoracic aorta: Normal. Lung parenchyma and airways: Patchy areas of groundglass and reticular opacities. Thoracic inlet, axillae and chest wall: Unremarkable. Mediastinum: Normal. Heart and pericardium: Normal. Coronary artery calcifications: Absent. Pleura: Unremarkable. Upper abdomen: No significant finding. Bones: No acute osseous finding. IMPRESSION: No CT evidence of acute pulmonary embolus. Pulmonary opacities likely reflect the sequela of atypical /viral pneumonia. Reviewed, dictated and finalized at location K. IMPRESSION: No CT evidence of acute pulmonary embolus. Pulmonary opacities likely reflect t he sequela of atypical/viral pneumonia.
--- NOTE | ~2022-01-25 | XR_ITS ---
EXAMINATION: XR chest 1V portable Exam Date/Time: 01/25/2022 15:52 CDT HISTORY: COUGH, SOB. HX ASTHMA, PNEUMONIA, HTN Comparison: 01/08/2022. RESULT: Lines, tubes, and devices: None. Lungs and pleura: Bibasilar scar/atelectasis. Cardiomediastinal silhouette: Stable cardiomediastinal silhouette. Other: No acute osseous or upper abdominal finding. IMPRESSION: No acute cardiopulmonary process. Reviewed, dictated and finalized at location K.
--- NOTE | ~2022-01-25 | XR_ITS ---
EXAMINATION: XR chest 2V DATE: 02/01/2022 08:11 INDICATION: Asthma, fever and cough TECHNIQUE: PA and lateral views of the chest were obtained. COMPARISON: Chest radiograph dated 01/27/2022 FINDINGS: Mild predominantly streaky bibasilar opacities and more subtle patchy airspace opacity in the left mi dlung zone. No pleural effusion or pneumothorax. The cardiomediastinal silhouette is normal. IMPRESSION: 1. Subtle opacity in the left midlung zone which could represent atelectasis, pneumonia or mild pulmo nary edema. 2. More streaky bibasilar opacities and favor atelectasis over pneumonia. Reviewed, dictated and finalized at location A. IMPRESSION: 1. Subtle opacity in the left midlung zone which could represent atelectasis, p neumonia or mild pulmonary edema. 2. More streaky bibasilar opacities and favor atelectasis over pneumonia.
--- NOTE | 2022-01-25 15:44 | ED.SOB ---
HPI - SOB/Dyspnea General Chief Complaint: Shortness of Breath/Dyspnea Stated Complaint: SOB Time Seen by Provider: 01/25/22 15:44 History of Present Illness HPI Narrative: Patient is a 56-year-old female with a history of atypical pneumonia, wheezing associated respiratory illness, presenting to the emergency department for evaluation of shortness of breath. Patient reports she felt like she had improving clinically when yesterday she began to have increased wheezing and shortness of breath. Patient states that she has had cough with increased sputum production without blood or hemoptysis. She denies any current chest pain but does report rib pain only with coughing. She reports increased wheezing, that has been refractory to treatment with her inhalers. She is not on any current antibiotic therapy. In the past, patient has been followed with Dr. Null with pulmonology. Related Data Home Medications Medication Instructions Recorded Confirmed omeprazole 40 mg capsule,delayed 40 cap PO DAILY 12/23/21 01/14/22 release sertraline 100 mg tablet 50 tablet PO DAILY 12/23/21 01/14/22 Allergies Allergy/AdvReac Type Severity Reaction Status Date / Time No Known Allergies Allergy Mild Verified 01/14/22 07:57 Review of Systems Review of Systems: CONSTITUTIONAL: Denies fever, reports sweats EYES: Denies visual changes, redness, or discharge. ENT: Denies rhinorrhea, congestion, sore throat, or otalgia. CARDIOVASCULAR: Denies chest pain, palpitations, or edema. RESPIRATORY: Reports cough and shortness of breath, reports wheezing GASTROINTESTINAL: Denies abdominal pain, nausea, vomiting, or diarrhea. GENITOURINARY: Denies dysuria or hematuria. SKIN: Denies rash or itching. MUSCULOSKELETAL: Denies back pain, joint pain, or myalgia. NEUROLOGIC: Denies headache, numbness, or weakness. [facility] Past Medical History Medical History Asthma Attention Deficit Hyperactivity Disorder (ADHD) Depression Gastroesophageal reflux disease Hypertension Hypoxia Insomnia Lactic acidosis Nausea Pneumonia Pneumonia Pneumonia Pneumonia of left lung due to infectious organism Polycythemia Sepsis Tachycardia Tachypnea Transaminitis Surgical History Surgical History History of hysteroscopy With dilation and curettage and endocervical polypectomy. Family History Family History Mother Hypertension Family history of diabetes mellitus in first degree relative Diabetes mellitus Father Hypertension Cancer of ureter Grandparent Family history of malignant neoplasm of breast Sibling Diabetes mellitus Social History Social History Social History: Surrogate decision maker: Maritza Smith, mother. Code status: Full code. Smoking packs per day: 0.5 Smoking cigarettes per day: 10.0 Smoking status: Former smoker Tobacco type: cigarettes Second hand tobacco smoke exposure: Yes Additional smoking assessment comments: Quit about 15 years ago. 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 EYES: PERRLA and EOMI. ENT: Nares clear, no rhinorrhea or epistaxis. Mucous membranes moist. NECK: Supple. CHEST: Tachypneic, coarse expiratory and inspiratory wheezing with upper airway rhonchi HEART: Tachycardic rate, sinus rhythm
--- NOTE | 2022-01-25 15:47 | ECG_ITS ---
Measurements Intervals [place] Rate: 75 P: 72 [place]: 133 QRS: 22 QRSD: 78 T: 76 QT: 354 QTc: 397 Interpretive Statements SINUS RHYTHM WITH MARKED SINUS ARRHYTHMIA EARLY PRECORDIAL R/S TRANSITION BASELINE ARTIFACT- I, III, AVR, AVL, AVF, V1-V6 BORDERLINE ECG Electronically Signed On 01-25-2022 15:54:27 CDT by Ajay Serrano D.O.
[2022-01-25] MEDS: SODIUM CHLORIDE 0.9% IV 500 ML 999 ML IV CONT (15:59)
[2022-01-25] MEDS: methylPREDNISolone SOD SUCC 125 MG VIAL IV PUSH (16:00)
[2022-01-25] MEDS: ALBUTEROL SULFATE NEB 2.5 MG/3 ML INH 10 MG INHALATION (16:11)
[2022-01-25] MEDS: IPRATROPIUM BR 0.02% INH SOLN 0.5 MG/2.5 ML VIAL 1 MG INHALATION (16:11)
[2022-01-25 16:14] LABS: Basophils Percent Auto 0.3 % (0.2-1.2); Eosinophils Absolute Auto 0.7 K/mm3 (0-0.3); Eosinophils Percent Auto 8.3 % (0-4.4); Hematocrit 45.5 % (37.0-47.0); Hemoglobin 15.7 g/dL (12.0-15.0); Immature Granulocyte Absolute 0.02 K/mm3 (0.00-0.031); Immature Granulocyte Percent A 0.2 % (0-0.5); Lymphocytes Absolute Auto 1.34 K/mm3 (0.9-3.2); Lymphocytes Percent Auto 15.4 % (18.3-44.2); Mean Corpuscular HGB Conc 34.5 g/dl (32-36); Mean Corpuscular Volume 89.9 fl (80-100); Mean Platelet Volume 9.7 fl (7.4-10.4); Monocytes Absolute Auto 0.6 K/mm3 (0.1-0.6); Monocytes Percent Auto 7.1 % (2.6-8.5); Neutrophils Percent Auto 68.7 % (45.5-73.1); Platelet Count Result 212 k/mm3 (150-375); Red Blood Count 5.06 M/mm3 (4.2-5.4); Red Cell Distribution Width 12.3 % (11.5-14.5); White Blood Count 8.7 K/mm3 (4.5-10.0)
[2022-01-25 16:29] LABS: Anion Gap 9 mmol/L (8-16); Blood Urea Nitrogen 14 mg/dL (7-17); Calcium 10.1 mg/dL (8.4-10.2); Carbon Dioxide 26 mmol/L (22-30); Chloride 106 mmol/L (98-107); Estimated CRCL calculation 95 ml/min; Estimated Glomerular Filt Rate > 60; Glucose 107 mg/dL (65-110); Potassium 4.4 mmol/L (3.4-5.0); Sodium 141 mmol/L (137-145)
[2022-01-25 16:51] LABS: SARS-CoV-2 RNA PCR Negative
[2022-01-25 17:16] LABS: Lactic Acid Reflex 1.1 mmol/L (0.7-2.0)
[2022-01-25] MEDS: ALBUTEROL SULFATE NEB 2.5 MG/3 ML INH 5 MG INHALATION ×2 (18:07→20:19)
[2022-01-25] MEDS: IPRATROPIUM BR 0.02% INH SOLN 0.5 MG/2.5 ML VIAL INHALATION (20:19)
[2022-01-25] MEDS: ACETAMINOPHEN 325 MG TABLET 650 MG PO (21:42)
--- NOTE | 2022-01-25 22:27 | ADMGEN ---
This patient, Luci Smith, was admitted to Medical Room 252-01 at 2221. Patient/family oriented to hospital policies and general routines including ID bracelet, bed and alarms, visiting hours, pain management, procedures, bathroom and other care routines, personal items, smoking policy, room service/diet, and visiting hours. Information on how to activate the Rapid Response Team has been discussed. Patient/Family are encouraged to report perceived risks to care and to ask questions if they do not understand what they are told or what they should do.
--- NOTE | 2022-01-25 22:55 | PM.IMHP ---
H&P: HPI History of Present Illness Date/Time: 01/25/22 22:55 Chief Complaint: Shortness of breath Narrative: 56-year-old female with a past medical history of smoking, multiple environmental exposures, and GERD who presented to the ER with shortness of breath that an ongoing a day and half. Patient began having symptoms in November of chronic dry cough With associated shortness of breath. the patient's symptoms started approximately September or October 2019. She reports that the cough is dry and hacking. She would cough until she would gag. She noticed some associated wheezing. she saw her primary care physician in November due to worsening symptoms and was prescribed albuterol inhaler which did help with her symptoms. Interestingly enough the patient did acquire a feral cat which became an indoor cat in October of 2021 when she had kittens She now has the cat and 4 kittens in her home. her symptoms worsened in December and she was admitted to the hospital December 23 due to hypoxic respiratory failure and was treated with Rocephin and azithromycin. She was discharged home on Augmentin And azithromycin. She continued using the albuterol inhaler at home. She reports that the inhaler does help but she uses it far more than it is prescribed. She reports that the nebulizers seemed to help with her symptoms more than the inhaler. She returned to the ER on 01/05/2022 with recurrent symptoms that have been ongoing for 1-2 days and increased wheezing. She had a CT of the chest that was negative for PE and had perihilar infiltrates with a new left upper lobe ground-glass infiltrate. She was treated with prednisone albuterol and Atrovent as well as azithromycin. At that time her mycoplasma titers did come back positive. For some reason the patient was not discharged home on azithromycin but was discharged home on clindamycin. For that hospital stay she was hospitalized for 5 days. She left against medical advice on the 5th day while TB testing was still pending. Her TB tested eventually returned as negative. She had a extended viral panel that was also negative. She had overnight pulse oximetry which was unremarkable during that hospital stay. She has never had a diagnosis of COPD or asthma before her recent hospital stays. She was evaluated by pulmonology and was given the diagnosis of asthma at her last discharge. she did follow-up with her primary care physician and told her primary care physician that she was using her albuterol inhaler more than directed. The patient herself is wondering why she was not prescribed an albuterol nebulizer since nebulizer seemed to help her symptoms more than anything else. 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 She has never had PFTs performed. She reports a just prior to developing her respiratory symptoms several months ago she had been trying a marijuana pen instead of smoking marijuana joints. When she was trying to use the pen she noticed increased respiratory symptoms with feeling like she had glue in her lungs. she has not used marijuana since her hospitalization in early December. She reports that she has been coughing so much that she has been having some stress urinary incontinence. She denies any dysuria or hematuria. She was unable to eat yesterday due to feeling so weak that she thought she would collapse with her respiratory symptoms. She denies any chest pain or palpitations. She denies any lower extremity swelling or orthopnea. She denies any nasal congestion or rhinorrhea. She does report that her throat feels sore and dry. She reports that she is up about 10 lb compared to last year but otherwise her weight is stable. She denies any nausea or vomiting. She has not had Any other GI symptoms. She has received 3 doses of Bucket[employer]et COVID vaccine her last booster was approximately in May of 2021. Review of Systems Review of Systems: 12 systems were reviewed with pertinent positives and negatives
[2022-01-26] VITALS (13 sets, daily range): BP systolic 117–145; BP diastolic 63–75; PULSE 88–110; RESP 16–24; TEMP 36.1–36.7; O2SAT 92–94
[2022-01-26] MEDS: BENZONATATE 100 MG CAPSULE PO ×3 (00:59→20:43)
[2022-01-26] MEDS: methylPREDNISolone SOD SUCC 125 MG VIAL 60 MG IV PUSH ×5 (00:59→23:18)
[2022-01-26] MEDS: ALBUTEROL SULFATE NEB 2.5 MG/0.5 ML INH 5 MG (02:10)
[2022-01-26] MEDS: IPRATROPIUM BR 0.02% INH SOLN 0.5 MG/2.5 ML VIAL INHALATION ×4 (02:10→21:09)
[2022-01-26] MEDS: ALBUTEROL SULFATE NEB 2.5 MG/3 ML INH 5 MG INHALATION ×3 (08:10→21:09)
[2022-01-26] MEDS: ENOXAPARIN 40 MG/0.4 ML SYRINGE SUB-Q (08:13)
[2022-01-26] MEDS: PANTOPRAZOLE 40 MG TABLET PO (08:13)
[2022-01-26] MEDS: lisinopriL 10 MG TABLET PO (08:13)
[2022-01-26] MEDS: SERTRALINE HCL 50 MG TABLET 200 MG PO (08:14)
--- NOTE | 2022-01-26 11:21 | PM.IMPN ---
Progress Note: A&P Assessment and Plan (1) Asthma with exacerbation: Qualifiers: Asthma persistence: persistent Asthma severity: severe Qualified Code(s): J45.51 - Severe persistent asthma with (acute) exacerbation Code(s): J45.901 - Unspecified asthma with (acute) exacerbation Status: Acute (2) Pneumonia: Code(s): J18.9 - Pneumonia, unspecified organism Status: Acute (3) Cough: Code(s): R05.9 - Cough, unspecified Status: Acute (4) Pleuritic chest pain: Code(s): R07.81 - Pleurodynia Status: Acute (5) Hypertension: Code(s): I10 - Essential (primary) hypertension Status: Acute Plan 56-year-old female with a past medical history of smoking, multiple environmental exposures, and GERD who presented to the ER with shortness of breath Additional Plan 1)Acute Respiratory Distress: 2/2 acute asthma excerbation+?Atypical Pneumonia c/w O2 support as needed to keep sats>92% c/w Albuterol and ipratropium Add budesonide c/w solumedrol c/w Tessalon pearls, add mucinex Pulmonary consult cats at home which are fairly new? hypersensitivity vs allergic reaction, will defer for pulmonary opinion labs in AM 2)HTN: c/w Lisinopril 3)DVT ppx: lovenox 4)Code:Full 5)Dispo: pending improvement in respiratory status Time Spent With Patient Time with patient: 25 - 35 minutes Subjective Date/time seen: 01/26/22 11:21 Interval history: continues to feel short of breath, constant cough, exp wheezing, not feeling well in general Review of Systems Constitutional: Constitutional: Reports fatigue and Reports weakness Eyes: Eyes: Reports no additional eye complaints ENT: Reports system reviewed and no additional complaints, except as documented Cardiovascular: Cardiovascular: Reports no additional cardiovascular complaints Respiratory: Respiratory: Reports chest congestion, Reports cough, Reports dyspnea, Reports dyspnea on exertion and Reports wheezing Gastrointestinal: Gastrointestinal: Reports no additional gastrointestinal complaints Musculoskeletal: Musculoskeletal: Reports no additional musculoskeletal complaints Neurologic: Reports system reviewed and no additional complaints, except as documented Exam Const: General: in distress and uncomfortable HENMT: Mouth: Yes moist mucous membranes Eyes: Sclera: sclerae normal Pupils: Equal, round and reactive pupils present Neck: Neck: supple Resp: Auscultation: wheezes Other: B/L decreased air entry with diffuse expiratory wheezing Cardio: Rate: regular rate Rhythm: regular rhythm GI: GI Palp: Yes Soft to palpation Auscultation: normal bowel sounds Neuro: Speech: normal speech Extrem: General: normal to inspection Psych: Mental Status: mental status grossly normal Objective Data Vital Signs Vital Signs: Vital Signs - 24 hr 01/25/22 15:28 01/25/22 15:49 01/25/22 15:49 Temperature 97.4 F L Pulse Rate 100 101 H Respiratory Rate 25 H Blood Pressure 158/82 H Pulse Oximetry 96 95 Oxygen Delivery Room Air Room Air 01/25/22 18:04 01/25/22 18:05 01/25/22 18:12 Temperature Pulse Rate 78 112 H 108 H Respiratory Rate 18 95 H 100 H Blood Pressure 135/70 Pulse Oximetry 94 Oxygen Delivery 01/25/22 19:24 01/25/22 20:21 01/25/22 20:22 Temperature Pulse Rate 88 103 H Respiratory Rate 20 20 Blood Pressure 132/78 Pulse Oximetry 94 92 Oxygen Delivery Room Air 01/25/22 20:35 01/25/22 21:08 01/25/22 22:00 Temperature 98.1 F Pulse Rate 106 H 87 106 H Respiratory Rate 20 18 20 Blood Pressure 147/75 H 137/74 Pulse Oximetry 96 Oxygen Delivery 01/25/22 22:30 01/26/22 02:16 01/26/22 02:24 Temperature Pulse Rate 97 99 Respiratory Rate 20 20 Blood Pressure Pulse Oximetry Oxygen Delivery Room Air 01/26/22 04:32 01/26/22 08:10 01/26/22 08:14 Temperature 98.1 F Pulse Rate 97 93 92 Respiratory Rate 18 20 20 B
[2022-01-26] MEDS: guaiFENesin 600 MG/DEXTROMETHORPHAN 30 MG SR TAB 12 HR 1 TAB PO ×2 (11:55→20:43)
[2022-01-26] MEDS: traMADol HCL (*CRX) 50 MG TABLET PO (12:57)
[2022-01-26] MEDS: BUDESONIDE RESPULE NEB 0.5 MG/2 ML AMP INHALATION (21:09)
[2022-01-27] VITALS (14 sets, daily range): BP systolic 117–145; BP diastolic 65–80; PULSE 84–116; RESP 16–24; TEMP 36.3–36.6; O2SAT 94–95
[2022-01-27] MEDS: IPRATROPIUM BR 0.02% INH SOLN 0.5 MG/2.5 ML VIAL INHALATION ×4 (01:59→20:30)
[2022-01-27] MEDS: ALBUTEROL SULFATE NEB 2.5 MG/3 ML INH 5 MG INHALATION ×3 (01:59→14:58)
[2022-01-27] MEDS: BENZONATATE 100 MG CAPSULE PO ×4 (03:32→22:12)
--- NOTE | 2022-01-27 04:06 | PC.NURSE ---
PT STATED SHE WANTED TO TALK TO DR HERNÁNDEZ BECAUSE SHE WAS UNHAPPY WITH TREATMENT. PT STATED SHE DID NOT FEEL LIKE THE MEDICATION AND BREATHING TREATMENTS WERE HELPING HER THE WAY THEY HAVE IN THE PAST. STATED THE TREATMENTS RESPIRATORY GIVES ARE MAKING HER WORSE. PT IS ACTIVELY COUGHING AND COUGHING INCREASES AFTER TREATMENTS. CALLED DR HERNÁNDEZ SHE STATED SHE DID NOT HAVE TIME TO COME VISIT THE PT BUT DID OFFER TO INCREASE HER TREATMENTS TO Q3 HR AND PRN. I OFFERED THIS OPTION TO THE PT BUT SHE REFUSED. DR HERNÁNDEZ ORDERED PRN LOZENGES FOR PT TO RELIEVE THE COUGH AND PT WAS AGREEABLE TO TAKING THEM. I HAVE PROVIDED THE PT WITH ICE CREAM, POPSICLES, AND ICE THROUGHOUT THE SHIFT AT HER REQUEST TO EASE HER THROAT PAINS WHICH SO FAR HAS HELPED.
[2022-01-27] MEDS: BENZOCAINE/MENTHOL (*BKC) 18 EA LOZENGE 1 LOZENGE PO ×2 (04:13→09:07)
[2022-01-27 05:28] LABS: Basophils Percent Auto 0.1 % (0.2-1.2); Hematocrit 40.2 % (37.0-47.0); Hemoglobin 13.1 g/dL (12.0-15.0); Immature Granulocyte Absolute 0.08 K/mm3 (0.00-0.031); Immature Granulocyte Percent A 0.6 % (0-0.5); Lymphocytes Absolute Auto 0.38 K/mm3 (0.9-3.2); Lymphocytes Percent Auto 2.9 % (18.3-44.2); Mean Corpuscular HGB Conc 32.6 g/dl (32-36); Mean Corpuscular Hemoglobin 30.1 pg (26-34); Mean Corpuscular Volume 92.4 fl (80-100); Mean Platelet Volume 9.7 fl (7.4-10.4); Monocytes Absolute Auto 0.2 K/mm3 (0.1-0.6); Monocytes Percent Auto 1.6 % (2.6-8.5); Neutrophils Absolute Auto 12.5 K/mm3 (1.3-6.7); Neutrophils Percent Auto 94.8 % (45.5-73.1); Platelet Count Result 219 k/mm3 (150-375); Red Blood Count 4.35 M/mm3 (4.2-5.4); Red Cell Distribution Width 12.8 % (11.5-14.5); White Blood Count 13.1 K/mm3 (4.5-10.0)
[2022-01-27] MEDS: methylPREDNISolone SOD SUCC 125 MG VIAL 60 MG IV PUSH ×2 (05:40→12:50)
[2022-01-27 05:43] LABS: Anion Gap 9 mmol/L (8-16); Blood Urea Nitrogen 21 mg/dL (7-17); Calcium 9.6 mg/dL (8.4-10.2); Carbon Dioxide 24 mmol/L (22-30); Chloride 105 mmol/L (98-107); Estimated CRCL calculation 81 ml/min; Estimated Glomerular Filt Rate > 60; Glucose 211 mg/dL (65-110); Potassium 3.8 mmol/L (3.4-5.0); Sodium 138 mmol/L (137-145)
[2022-01-27] MEDS: BUDESONIDE RESPULE NEB 0.5 MG/2 ML AMP INHALATION ×2 (08:52→20:30)
[2022-01-27] MEDS: FUROSEMIDE INJ 40 MG/4 ML VIAL 20 MG IV PUSH (09:05)
[2022-01-27] MEDS: ENOXAPARIN 40 MG/0.4 ML SYRINGE SUB-Q (09:06)
[2022-01-27] MEDS: guaiFENesin 600 MG/DEXTROMETHORPHAN 30 MG SR TAB 12 HR 1 TAB PO ×2 (09:06→22:12)
[2022-01-27] MEDS: lisinopriL 10 MG TABLET PO (09:08)
[2022-01-27] MEDS: PANTOPRAZOLE 40 MG TABLET PO (09:08)
[2022-01-27] MEDS: SERTRALINE HCL 50 MG TABLET 200 MG PO (09:08)
--- NOTE | 2022-01-27 10:25 | PM.IMPN ---
Progress Note: A&P Assessment and Plan (1) Asthma with exacerbation: Qualifiers: Asthma persistence: persistent Asthma severity: severe Qualified Code(s): J45.51 - Severe persistent asthma with (acute) exacerbation Code(s): J45.901 - Unspecified asthma with (acute) exacerbation Status: Acute (2) Pneumonia: Code(s): J18.9 - Pneumonia, unspecified organism Status: Acute (3) Cough: Code(s): R05.9 - Cough, unspecified Status: Acute (4) Pleuritic chest pain: Code(s): R07.81 - Pleurodynia Status: Acute (5) Hypertension: Code(s): I10 - Essential (primary) hypertension Status: Acute Plan 56-year-old female with a past medical history of smoking, multiple environmental exposures, and GERD who presented to the ER with shortness of breath 1)Acute Respiratory Distress: 2/2 acute asthma excerbation+?Atypical Pneumonia c/w O2 support as needed to keep sats>92% c/w Albuterol and ipratropium c/w budesonide c/w solumedrol c/w Tessalon pearls, mucinex Pulmonary consult Will repeat CXR today Add vancomycin Will give 1 dose of lasix today cats at home which are fairly new? hypersensitivity vs allergic reaction, will defer for pulmonary opinion labs in AM 2)HTN: c/w Lisinopril 3)DVT ppx: lovenox 4)Code:Full 5)Dispo: pending improvement in respiratory status Time Spent With Patient Time with patient: 15 - 25 minutes Subjective Date/time seen: 01/27/22 10:25 Interval history: continues to have cough, feeling worse, no fever Review of Systems Review of Systems: All systems reviewed & are unremarkable except as noted in HPI and below Constitutional: Constitutional: Reports fatigue Eyes: Eyes: Reports no additional eye complaints ENT: Reports system reviewed and no additional complaints, except as documented Cardiovascular: Cardiovascular: Reports no additional cardiovascular complaints Respiratory: Respiratory: Reports chest congestion, Reports cough, Reports dyspnea, Reports dyspnea on exertion and Reports wheezing Gastrointestinal: Gastrointestinal: Reports no additional gastrointestinal complaints Musculoskeletal: Musculoskeletal: Reports no additional musculoskeletal complaints Integumentary/Breasts: Skin/Breast: Reports system reviewed and no additional complaints, except as docu Neurologic: Reports system reviewed and no additional complaints, except as documented Exam Const: General: uncomfortable HENMT: Mouth: Yes moist mucous membranes Eyes: Sclera: sclerae normal Pupils: Equal, round and reactive pupils present Neck: Neck: supple Resp: Auscultation: wheezes and diminished lung sounds Other: B/L decreased air entry with diffuse expiratory wheezing Cardio: Rate: regular rate Rhythm: regular rhythm GI: GI Palp: Yes Soft to palpation Auscultation: normal bowel sounds Skin: General skin exam: normal color and no rashes or lesions noted Neuro: Cranial nerves: Yes Equal, round and reactive pupils present Speech: normal speech Other: alert oriented, speech is clear, no facial asymmetry, no localizing neurologic deficits noted during the course of casual conversation Extrem: General: normal to inspection Other: no clubbing, cyanosis or edema Psych: Mental Status: mental status grossly normal Objective Data Vital Signs Vital Signs: Vital Signs - 24 hr 01/26/22 15:11 01/26/22 15:19 01/26/22 15:09 Temperature 97.5 F L Pulse Rate 98 95 88 Respiratory Rate 20 20 20 Blood Pressure 129/71 Pulse Oximetry 94 Oxygen Delivery 01/26/22 20:25 01/26/22 21:32 01/26/22 21:03 Temperature 97.0 F L Pulse Rate 89 107 H 107 H Respiratory Rate 16 24 H 24 H Blood Pressure 145/75 H Pulse Oximetry 94 92 Oxygen Delivery Room Air 01/26/22 21:13 01/26/22 20:00 01/27/22 02:00 Temperature Pulse Rate 110 H 101 H Respiratory Rate 24 H 24 H Blood Pressure Pulse Oximetry Oxygen De
--- NOTE | 2022-01-27 16:59 | PM.CNPUL ---
Assessment and Plan Assessment and plan (1) Asthma with exacerbation: Qualifiers: Asthma persistence: persistent Asthma severity: severe Qualified Code(s): J45.51 - Severe persistent asthma with (acute) exacerbation Code(s): J45.901 - Unspecified asthma with (acute) exacerbation Status: Acute Assessment and Plan: Patient may have asthma and if so she has an exacerbation. She has improved with IV steroids, bronchodilators and azithromycin/vancomycin antibiotics. At this time I will decrease her Solu-Medrol to 40 mg IV q.6, I will increase her albuterol 2.5 mg nebulized from q.6 hours to q.4 hours. I will increase her albuterol 0.5 mg nebulized Q 6 hours to Q 4 hours. I will continue guaifenesin 600/ dextromethorphan 30 Q 12 hours. I will change her Tessalon Perles from p.r.n. to 200 mg p.o. t.i.d. She is COVID negative on this admission as well as last admission, she had a negative extended viral RNA panel last admission. urine Legionella and urine pneumococcal antigens were negative last admission. Her QuantiFERON gold was negative last admission. She had a mycoplasma IgM that was negative and a positive IgG Last admission on 01/05/2022. the patient states that many of her symptoms started after she was initiated on lisinopril for blood pressure in December of 2021 and will discontinue this medicine currently. The patient has some atypical infiltrates on her CT scan and I will send a connective tissue disorder workup including FRANCESCA screen that includes 11 different auto antibodies, an ANCA screen, a rheumatoid factor, anti CCP antibody, hypersensitivity pneumonitis panel, a CPK, and an aldolase level. the patient has a history of smoking marijuana cigarettes and marijuana oils and states he has last smoked in November 2021. I will send a urine toxicology study to confirm no use. Discussed with Dr. Hogan Will follow with you. History of Present Illness History of Present Illness Consult date: 01/27/22 Chief complaint: Asthma exacerbation Narrative: 01/27/2022: This is a new Pulmonary consultation for asthma 56-year-old with a history of hypertension,GERD and preliminarily labeled with asthma from a hospitalization from 01/04/22 through 01/10/22. I saw saw the patient in consultation on 01/07/2022 and given her new onset of wheezing, shortness of breath, eosinophilia that had responded to antibiotics, intravenous steroids, and bronchodilators I gave her a tentative diagnosis of asthma. Her COVID RT PCR was negative her urine pneumococcal and Legionella studies were negative, her QuantiFERON gold study was negative, her respiratory viral pathogen panel was negative for 23 respiratory pathogens. She had an echocardiogram with normal LV function, normal diastolic function, pulmonary arterial systolic pressures of 28 with no valvular disease. Patient was discharged on 01/10 with albuterol 2 puffs p.r.n., Mucinex 600 mg p.o. b.i.d., Tessalon Perles, and clindamycin for 10 days. She had finished ceftriaxone and azithromycin previously. The patient tells me that when she left the hospital she was doing very well and continued to improve over the next 10 days. 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 She discontinued the clindamycin on 12/24 and she says on 12/25 she developed cough, fatigue, wheezing and shortness of breath that worsened and she presented to the hospital on 12/26. On admission the patient had a white blood cell count of 8.7 with eosinophils 8.3%. She had a CTA scan of the chest which was negative for PE, but did 7 straight unchanged mild bilateral patchy ground-glass infiltrates worse in the apices. She was treated with Solu-Medrol 60 mg IV q.6, albuterol and ipratropium nebulizers, azithromycin and vancomycin was added on 01/27 Patient smoked cigarettes from age 21 to age 41 at 3/4 pack per day for total of 15 pack years.? Patient smo
[2022-01-27] MEDS: methylPREDNISolone SOD SUCC 40 MG VIAL IV PUSH (18:32)
[2022-01-27] MEDS: ALBUTEROL SULFATE NEB 2.5 MG/3 ML INH INHALATION (20:30)
[2022-01-27] MEDS: ACETAMINOPHEN 325 MG TABLET 650 MG PO (22:12)
[2022-01-27 22:55] LABS: Amphetamine Screen Urine Negative (Negative); Barbiturate Screen Urine Negative (Negative); Benzodiazepines Screen Urine Negative (Negative); Cannabinoid Screen Urine Positive (Negative); Cocaine Screen Urine Negative (Negative); Methadone Screen Urine Negative (Negative); Opiate Screen Urine Negative (Negative); Phencyclidine Screen Urine Negative (Negative)
[2022-01-28] VITALS (16 sets, daily range): BP systolic 110–158; BP diastolic 58–84; PULSE 66–104; RESP 16–20; TEMP 36.1–36.9; O2SAT 92–94
[2022-01-28] MEDS: ZOLPIDEM TARTRATE (*CRX) 5 MG TABLET PO ×2 (00:15→21:43)
[2022-01-28] MEDS: methylPREDNISolone SOD SUCC 40 MG VIAL IV PUSH ×2 (00:15→06:34)
[2022-01-28] MEDS: traMADol HCL (*CRX) 50 MG TABLET PO ×2 (00:16→21:43)
[2022-01-28] MEDS: ALBUTEROL SULFATE NEB 2.5 MG/3 ML INH INHALATION ×5 (00:26→20:44)
[2022-01-28] MEDS: IPRATROPIUM BR 0.02% INH SOLN 0.5 MG/2.5 ML VIAL INHALATION ×6 (00:27→20:43)
[2022-01-28] MEDS: ALBUTEROL SULFATE NEB 2.5 MG/0.5 ML INH (04:44)
[2022-01-28 05:36] LABS: Anion Gap 9 mmol/L (8-16); Blood Urea Nitrogen 20 mg/dL (7-17); Calcium 9.5 mg/dL (8.4-10.2); Carbon Dioxide 24 mmol/L (22-30); Chloride 106 mmol/L (98-107); Estimated CRCL calculation 70 ml/min; Estimated Glomerular Filt Rate > 60; Glucose 300 mg/dL (65-110); Potassium 3.4 mmol/L (3.4-5.0); Sodium 139 mmol/L (137-145)
[2022-01-28 05:39] LABS: Basophils Percent Auto 0.1 % (0.2-1.2); Hematocrit 40.9 % (37.0-47.0); Hemoglobin 13.9 g/dL (12.0-15.0); Immature Granulocyte Absolute 0.07 K/mm3 (0.00-0.031); Immature Granulocyte Percent A 0.7 % (0-0.5); Mean Corpuscular Volume 91.3 fl (80-100); Mean Platelet Volume 9.7 fl (7.4-10.4); Monocytes Absolute Auto 0.2 K/mm3 (0.1-0.6); Monocytes Percent Auto 2.1 % (2.6-8.5); Neutrophils Absolute Auto 9.3 K/mm3 (1.3-6.7); Neutrophils Percent Auto 92.1 % (45.5-73.1); Platelet Count Result 215 k/mm3 (150-375); Red Blood Count 4.48 M/mm3 (4.2-5.4); Red Cell Distribution Width 12.7 % (11.5-14.5); White Blood Count 10.1 K/mm3 (4.5-10.0)
[2022-01-28 05:57] LABS: Rheumatoid Factor < 8.6 IU/ML (<12)
[2022-01-28] MEDS: BUDESONIDE RESPULE NEB 0.5 MG/2 ML AMP INHALATION ×2 (07:45→20:44)
--- NOTE | 2022-01-28 09:12 | PM.PNPUL ---
Progress Note: A&P Assessment and Plan (1) Asthma with exacerbation: Qualifiers: Asthma persistence: persistent Asthma severity: severe Qualified Code(s): J45.51 - Severe persistent asthma with (acute) exacerbation Code(s): J45.901 - Unspecified asthma with (acute) exacerbation Status: Acute Assessment and Plan: Patient may have asthma and if so she has an exacerbation. She has improved with IV steroids, bronchodilators and azithromycin/vancomycin antibiotics. At this time I will decrease her Solu-Medrol to 40 mg IV q.6, I will increase her albuterol 2.5 mg nebulized from q.6 hours to q.4 hours. I will increase her albuterol 0.5 mg nebulized Q 6 hours to Q 4 hours. I will continue guaifenesin 600/ dextromethorphan 30 Q 12 hours. I will change her Tessalon Perles from p.r.n. to 200 mg p.o. t.i.d. She is COVID negative on this admission as well as last admission, she had a negative extended viral RNA panel last admission. urine Legionella and urine pneumococcal antigens were negative last admission. Her QuantiFERON gold was negative last admission. She had a mycoplasma IgM that was negative and a positive IgG Last admission on 01/05/2022. the patient states that many of her symptoms started after she was initiated on lisinopril for blood pressure in December of 2021 and will discontinue this medicine currently. The patient has some atypical infiltrates on her CT scan and I will send a connective tissue disorder workup including FRANCESCA screen that includes 11 different auto antibodies, an ANCA screen, a rheumatoid factor, anti CCP antibody, hypersensitivity pneumonitis panel, a CPK, and an aldolase level. the patient has a history of smoking marijuana cigarettes and marijuana oils and states he has last smoked in November 2021. I will send a urine toxicology study to confirm no use. 01/28 Today the patient tells me is she is 60% better. She still has a cough with minimal phlegm. Her white blood cell count is 10.1. Saturations are 94% on room air. Wheezes are present but diminished compared to yesterday. urine toxicology panel positive for THC. On further questioning the patient did tell me that she eats gummy TH sees her last ingestion was on 01 25. The patient also tells me that she did inhale THC vaporized oil 1 inhalation on 01/23/22. Will DC vancomycin today. Today is day 3 of 5 azithromycin. I will decrease her Solu-Medrol to 20 mg IV q.6, continue albuterol 2.5 and ipratropium 0.5 q.4 hours. Continue guaifenesin, dextromethorphan, and Tessalon Perles. Connective tissue disorder and vasculitis workup are pending. Rheumatoid factor is less than 8.6. On further questioning today the patient does state that she has inhaled THC last use was on 01/23 and this may be contributing to her current clinical symptoms of cough, wheezing and patchy ground-glass infiltrates on her CT scan. I have told her that is absolutely necessary not to inhale tobacco smoke, marijuana smoke, or vaporized chemical at all. additionally I have told her to avoid all secondhand exposure to these agents as well. She appears to understand this. If patient continues to improve she can be discharged in the next 1-2 days on these pulmonary medicines: Azithromycin 250 mg PO last dose on 01/30. Prednisone 40 mg PO for 5 days from discharge. Step 5 therapy with LABA, LAMA and high dose ICS that insurance will cover: Trelegy 200/62.5/24 at 1 puff Q day or Breztri 160/9/4.8 at 2 puffs BID. Alternatively, Beta agonsit and inhaled corticosteroid combination (Advair discus 500/50 at 1 puff BID, Advair HFA 230/21 at 2 puffs BID, Breo Ellipts 200/25 at 1 puff Q day, Dulera 200/5 at 2 puffs BID, or symbicort 160/4.5 at 2 puffs BID) plus Muscarinic antagonist (atrovent 2 puffs Q 6 HR, incruse ellipta 62.5 at 1 puffs Q day, spireva 18 mics at 1 puff Q day or spireva respimat 2.5 mics at 2 puffs Q day) Guaifenosin ER 600 mg PO BID Ambika Mg
[2022-01-28 09:29] LABS: Creatine Kinase 24 U/L (30-135)
[2022-01-28] MEDS: ENOXAPARIN 40 MG/0.4 ML SYRINGE SUB-Q (09:44)
[2022-01-28] MEDS: SERTRALINE HCL 50 MG TABLET 200 MG PO (09:44)
[2022-01-28] MEDS: guaiFENesin 600 MG/DEXTROMETHORPHAN 30 MG SR TAB 12 HR 1 TAB PO ×2 (09:44→20:52)
[2022-01-28] MEDS: BENZONATATE 100 MG CAPSULE 200 MG PO ×3 (09:44→17:07)
[2022-01-28] MEDS: PANTOPRAZOLE 40 MG TABLET PO (09:44)
[2022-01-28] MEDS: methylPREDNISolone SOD SUCC 40 MG VIAL 20 MG IV PUSH ×2 (12:34→17:08)
--- NOTE | 2022-01-28 15:24 | PM.IMPN ---
Progress Note: A&P Assessment and Plan (1) Asthma with exacerbation: Qualifiers: Asthma persistence: persistent Asthma severity: severe Qualified Code(s): J45.51 - Severe persistent asthma with (acute) exacerbation Code(s): J45.901 - Unspecified asthma with (acute) exacerbation Status: Acute (2) Pneumonia: Code(s): J18.9 - Pneumonia, unspecified organism Status: Acute (3) Cough: Code(s): R05.9 - Cough, unspecified Status: Acute (4) Pleuritic chest pain: Code(s): R07.81 - Pleurodynia Status: Acute (5) Hypertension: Code(s): I10 - Essential (primary) hypertension Status: Acute Plan 56-year-old female with a past medical history of smoking, multiple environmental exposures, and GERD who presented to the ER with shortness of breath 1)Acute Respiratory Distress: 2/2 acute asthma excerbation+?Atypical Pneumonia c/w O2 support as needed to keep sats>92% c/w Albuterol and ipratropium c/w budesonide c/w solumedrol c/w Tessalon pearls, mucinex Pulmonary consult Will repeat CXR today Add vancomycin Will give 1 dose of lasix today cats at home which are fairly new? hypersensitivity vs allergic reaction, will defer for pulmonary opinion labs in AM 2)HTN: c/w Lisinopril 3)DVT ppx: lovenox 4)Code:Full 5)Dispo: pending improvement in respiratory status Additional Plan 1)Acute Respiratory Distress: 2/2 acute asthma excerbation+?Atypical Pneumonia c/w O2 support as needed to keep sats>92% c/w Albuterol and ipratropium Add budesonide c/w solumedrol c/w Tessalon pearls, add mucinex Pulmonary consult cats at home which are fairly new? hypersensitivity vs allergic reaction, will defer for pulmonary opinion labs in AM 2)HTN: c/w Lisinopril 3)DVT ppx: lovenox 4)Code:Full 5)Dispo: pending improvement in respiratory status 01/28/2022 Interval history: patient is a 56-year-old female with history of severe uncontrolled asthma has been seen by shipping and receiving and being treated with methylprednisone, azithromycin and bronchodilator, today patient states feeling better compared to when she arrived, discussed with shipping and receiving plan is to continue present manage and taper Solu-Medrol to 20 mg q.6 from 40 mg q.6 today, will continue to monitor if patient's symptoms improve remains clinically stable may further taper down to prednisone 40 mg q.day it discharge, plan is to discharge the patient Monday, will continue to monitor. Subjective Date/time seen: 01/28/22 15:24 01/28/2022 Interval history: patient is a 56-year-old female with history of severe uncontrolled asthma has been seen by shipping and receiving and being treated with methylprednisone, azithromycin and bronchodilator, today patient states feeling better compared to when she arrived, discussed with shipping and receiving plan is to continue present manage and taper Solu-Medrol to 20 mg q.6 from 40 mg q.6 today, will continue to monitor if patient's symptoms improve remains clinically stable may further taper down to prednisone 40 mg q.day it discharge, plan is to discharge the patient Monday, will continue to monitor. Review of Systems Review of Systems: All systems reviewed & are unremarkable except as noted in HPI and below Exam Narrative: Patient is comfortable, NAD HEENT: eyes are clear and none icteric LUNGS: normal respiratory effort ABD: not distended Lower extremities: no edema SKIN: nonjaundiced Neuro: grossly intact. Objective Data Vital Signs Vital Signs: Vital Signs - 24 hr 01/27/22 20:25 01/27/22 20:31 01/27/22 20:40 Temperature Pulse Rate 106 H 106 H 116 H Respiratory Rate 24 H 24 H 24 H Blood Pressure Pulse Oximetry 94 Oxygen Delivery Room Air 01/27/22 20:58 01/27/22 20:00 01/28/22 00:27 Temperature 97.4 F L Pulse Rate 102 H 102 H 98 Respiratory Rate 16 16 20 Blood Pressure 145/80 H Pulse Oximetry 94 94 Oxygen Delivery Room Air 01/28/22
[2022-01-29] VITALS (12 sets, daily range): BP systolic 155–161; BP diastolic 75–86; PULSE 71–102; RESP 16–20; TEMP 36.3–36.9; O2SAT 93–97
[2022-01-29] MEDS: methylPREDNISolone SOD SUCC 40 MG VIAL 20 MG IV PUSH ×5 (00:10→23:46)
[2022-01-29] MEDS: IPRATROPIUM BR 0.02% INH SOLN 0.5 MG/2.5 ML VIAL INHALATION ×5 (04:49→20:31)
[2022-01-29] MEDS: ALBUTEROL SULFATE NEB 2.5 MG/3 ML INH INHALATION ×5 (04:49→20:35)
[2022-01-29 05:31] LABS: Basophils Percent Auto 0.1 % (0.2-1.2); Hematocrit 40.9 % (37.0-47.0); Hemoglobin 13.7 g/dL (12.0-15.0); Immature Granulocyte Absolute 0.08 K/mm3 (0.00-0.031); Immature Granulocyte Percent A 0.9 % (0-0.5); Lymphocytes Absolute Auto 0.78 K/mm3 (0.9-3.2); Mean Corpuscular HGB Conc 33.5 g/dl (32-36); Mean Corpuscular Hemoglobin 30.2 pg (26-34); Mean Corpuscular Volume 90.1 fl (80-100); Mean Platelet Volume 9.6 fl (7.4-10.4); Monocytes Absolute Auto 0.5 K/mm3 (0.1-0.6); Monocytes Percent Auto 5.9 % (2.6-8.5); Neutrophils Absolute Auto 7.3 K/mm3 (1.3-6.7); Neutrophils Percent Auto 84.1 % (45.5-73.1); Platelet Count Result 203 k/mm3 (150-375); Red Blood Count 4.54 M/mm3 (4.2-5.4); Red Cell Distribution Width 12.4 % (11.5-14.5); White Blood Count 8.6 K/mm3 (4.5-10.0)
[2022-01-29 05:44] LABS: Anion Gap 4 mmol/L (8-16); Blood Urea Nitrogen 16 mg/dL (7-17); Calcium 8.9 mg/dL (8.4-10.2); Carbon Dioxide 30 mmol/L (22-30); Chloride 105 mmol/L (98-107); Estimated CRCL calculation 70 ml/min; Estimated Glomerular Filt Rate > 60; Glucose 205 mg/dL (65-110); Potassium 3.6 mmol/L (3.4-5.0); Sodium 139 mmol/L (137-145)
[2022-01-29] MEDS: BUDESONIDE RESPULE NEB 0.5 MG/2 ML AMP INHALATION ×2 (07:44→20:30)
[2022-01-29] MEDS: BENZONATATE 100 MG CAPSULE 200 MG PO ×3 (08:33→17:34)
[2022-01-29] MEDS: PANTOPRAZOLE 40 MG TABLET PO (08:34)
[2022-01-29] MEDS: SERTRALINE HCL 50 MG TABLET 200 MG PO (08:34)
[2022-01-29] MEDS: ENOXAPARIN 40 MG/0.4 ML SYRINGE SUB-Q (08:34)
[2022-01-29] MEDS: guaiFENesin 600 MG/DEXTROMETHORPHAN 30 MG SR TAB 12 HR 1 TAB PO ×2 (08:34→21:05)
--- NOTE | 2022-01-29 13:12 | PM.IMPN ---
Progress Note: A&P Assessment and Plan (1) Asthma with exacerbation: Qualifiers: Asthma persistence: persistent Asthma severity: severe Qualified Code(s): J45.51 - Severe persistent asthma with (acute) exacerbation Code(s): J45.901 - Unspecified asthma with (acute) exacerbation Status: Acute (2) Pneumonia: Code(s): J18.9 - Pneumonia, unspecified organism Status: Acute (3) Cough: Code(s): R05.9 - Cough, unspecified Status: Acute (4) Pleuritic chest pain: Code(s): R07.81 - Pleurodynia Status: Acute (5) Hypertension: Code(s): I10 - Essential (primary) hypertension Status: Acute Plan 56-year-old female with a past medical history of smoking, multiple environmental exposures, and GERD who presented to the ER with shortness of breath 1)Acute Respiratory Distress: 2/2 acute asthma excerbation+?Atypical Pneumonia c/w O2 support as needed to keep sats>92% c/w Albuterol and ipratropium c/w budesonide c/w solumedrol c/w Tessalon pearls, mucinex Pulmonary consult Will repeat CXR today Add vancomycin Will give 1 dose of lasix today cats at home which are fairly new? hypersensitivity vs allergic reaction, will defer for pulmonary opinion labs in AM 2)HTN: c/w Lisinopril 3)DVT ppx: lovenox 4)Code:Full 5)Dispo: pending improvement in respiratory status Additional Plan 1)Acute Respiratory Distress: 2/2 acute asthma excerbation+?Atypical Pneumonia c/w O2 support as needed to keep sats>92% c/w Albuterol and ipratropium Add budesonide c/w solumedrol c/w Tessalon pearls, add mucinex Pulmonary consult cats at home which are fairly new? hypersensitivity vs allergic reaction, will defer for pulmonary opinion labs in AM 2)HTN: c/w Lisinopril 3)DVT ppx: lovenox 4)Code:Full 5)Dispo: pending improvement in respiratory status 01/28/2022 Interval history: patient is a 56-year-old female with history of severe uncontrolled asthma has been seen by wetland scientist and being treated with methylprednisone, azithromycin and bronchodilator, today patient states feeling better compared to when she arrived, discussed with wetland scientist plan is to continue present manage and taper Solu-Medrol to 20 mg q.6 from 40 mg q.6 today, will continue to monitor if patient's symptoms improve remains clinically stable may further taper down to prednisone 40 mg q.day it discharge, plan is to discharge the patient Monday, will continue to monitor. 01/29/2022 Interval history: patient is a 56-year-old female with history of severe uncontrolled asthma has been seen by wetland scientist and being treated with methylprednisone, azithromycin and bronchodilator, today patient states not feeling well and has difficulty with breathing compared to yesterday, patient had a long discussion with her wetland scientist regarding stopping smoking marijuana, vaping and vaping TCH, again today I have emphasize to stop smoking to prevent further damage to her lungs, on 01/28 discussed with wetland scientist plan is to continue present management and taper Solu-Medrol to 20 mg q.6 from 40 mg q.6, will continue to monitor if patient's symptoms improve remains clinically stable may further taper down to prednisone 40 mg q.day at discharge, plan is to discharge the patient Monday, will continue to monitor. Subjective Date/time seen: 01/29/22 13:12 01/29/2022 Interval history: patient is a 56-year-old female with history of severe uncontrolled asthma has been seen by wetland scientist and being treated with methylprednisone, azithromycin and bronchodilator, today patient states not feeling well and has difficulty with breathing compared to yesterday, patient had a long discussion with her wetland scientist regarding stopping smoking marijuana, vaping and vaping TCH, again today I have emphasize to stop smoking to prevent further damage to her lungs, on 01/28 discussed with wetland scientist plan is to continue present management an
[2022-01-29] MEDS: ACETAMINOPHEN 325 MG TABLET 650 MG PO (14:26)
[2022-01-29] MEDS: traMADol HCL (*CRX) 50 MG TABLET PO (21:05)
[2022-01-29] MEDS: ZOLPIDEM TARTRATE (*CRX) 5 MG TABLET PO (21:05)
[2022-01-30] VITALS (15 sets, daily range): BP systolic 144–164; BP diastolic 69–95; PULSE 63–93; RESP 12–24; TEMP 36.3–36.4; O2SAT 93–99
[2022-01-30] MEDS: IPRATROPIUM BR 0.02% INH SOLN 0.5 MG/2.5 ML VIAL INHALATION ×6 (04:36→19:56)
[2022-01-30] MEDS: ALBUTEROL SULFATE NEB 2.5 MG/3 ML INH INHALATION ×5 (04:36→17:10)
[2022-01-30] MEDS: methylPREDNISolone SOD SUCC 40 MG VIAL 20 MG IV PUSH ×4 (05:38→23:24)
[2022-01-30] MEDS: BUDESONIDE RESPULE NEB 0.5 MG/2 ML AMP INHALATION ×2 (08:04→19:56)
[2022-01-30] MEDS: BENZONATATE 100 MG CAPSULE 200 MG PO ×3 (09:18→17:47)
[2022-01-30] MEDS: guaiFENesin 600 MG/DEXTROMETHORPHAN 30 MG SR TAB 12 HR 1 TAB PO ×2 (09:18→21:14)
[2022-01-30] MEDS: PANTOPRAZOLE 40 MG TABLET PO (09:18)
[2022-01-30] MEDS: SERTRALINE HCL 50 MG TABLET 200 MG PO (09:18)
[2022-01-30] MEDS: ENOXAPARIN 40 MG/0.4 ML SYRINGE SUB-Q (09:18)
--- NOTE | 2022-01-30 11:51 | PM.IMPN ---
Progress Note: A&P Assessment and Plan (1) Asthma with exacerbation: Qualifiers: Asthma persistence: persistent Asthma severity: severe Qualified Code(s): J45.51 - Severe persistent asthma with (acute) exacerbation Code(s): J45.901 - Unspecified asthma with (acute) exacerbation Status: Acute (2) Pneumonia: Code(s): J18.9 - Pneumonia, unspecified organism Status: Acute (3) Cough: Code(s): R05.9 - Cough, unspecified Status: Acute (4) Pleuritic chest pain: Code(s): R07.81 - Pleurodynia Status: Acute (5) Hypertension: Code(s): I10 - Essential (primary) hypertension Status: Acute Plan 56-year-old female with a past medical history of smoking, multiple environmental exposures, and GERD who presented to the ER with shortness of breath 1)Acute Respiratory Distress: 2/2 acute asthma excerbation+?Atypical Pneumonia c/w O2 support as needed to keep sats>92% c/w Albuterol and ipratropium c/w budesonide c/w solumedrol c/w Tessalon pearls, mucinex Pulmonary consult Will repeat CXR today Add vancomycin Will give 1 dose of lasix today cats at home which are fairly new? hypersensitivity vs allergic reaction, will defer for pulmonary opinion labs in AM 2)HTN: c/w Lisinopril 3)DVT ppx: lovenox 4)Code:Full 5)Dispo: pending improvement in respiratory status Additional Plan 1)Acute Respiratory Distress: 2/2 acute asthma excerbation+?Atypical Pneumonia c/w O2 support as needed to keep sats>92% c/w Albuterol and ipratropium Add budesonide c/w solumedrol c/w Tessalon pearls, add mucinex Pulmonary consult cats at home which are fairly new? hypersensitivity vs allergic reaction, will defer for pulmonary opinion labs in AM 2)HTN: c/w Lisinopril 3)DVT ppx: lovenox 4)Code:Full 5)Dispo: pending improvement in respiratory status 01/28/2022 Interval history: patient is a 56-year-old female with history of severe uncontrolled asthma has been seen by grassland conservationist and being treated with methylprednisone, azithromycin and bronchodilator, today patient states feeling better compared to when she arrived, discussed with grassland conservationist plan is to continue present manage and taper Solu-Medrol to 20 mg q.6 from 40 mg q.6 today, will continue to monitor if patient's symptoms improve remains clinically stable may further taper down to prednisone 40 mg q.day it discharge, plan is to discharge the patient Monday, will continue to monitor. 01/29/2022 Interval history: patient is a 56-year-old female with history of severe uncontrolled asthma has been seen by grassland conservationist and being treated with methylprednisone, azithromycin and bronchodilator, today patient states not feeling well and has difficulty with breathing compared to yesterday, patient had a long discussion with her grassland conservationist regarding stopping smoking marijuana, vaping and vaping TCH, again today I have emphasize to stop smoking to prevent further damage to her lungs, on 01/28 discussed with grassland conservationist plan is to continue present management and taper Solu-Medrol to 20 mg q.6 from 40 mg q.6, will continue to monitor if patient's symptoms improve remains clinically stable may further taper down to prednisone 40 mg q.day at discharge, plan is to discharge the patient Monday, will continue to monitor. 01/30/2022 Interval history: patient is a 56-year-old female with history of severe uncontrolled asthma has been seen by grassland conservationist and being treated with methylprednisone, azithromycin, ICS and bronchodilators, today patient states not feeling well and has difficulty with breathing compared to yesterday, patient had a long discussion with her grassland conservationist regarding stopping smoking marijuana, vaping and vaping TCH, again today I have emphasize her to stop smoking to prevent further damage to her lungs, on 01/28 discussed with grassland conservationist plan was to continue present management and taper Solu-Medrol to 20 mg q.6 fro
[2022-01-30] MEDS: ACETAMINOPHEN 325 MG TABLET 650 MG PO (17:48)
[2022-01-30] MEDS: ALBUTEROL SULFATE NEB 2.5 MG/0.5 ML INH ×2 (19:57→23:46)
[2022-01-30] MEDS: traMADol HCL (*CRX) 50 MG TABLET PO (21:15)
[2022-01-30] MEDS: ZOLPIDEM TARTRATE (*CRX) 5 MG TABLET PO (21:16)
[2022-01-31] MEDS: BENZOCAINE/MENTHOL (*BKC) 18 EA LOZENGE 1 LOZENGE PO ×3 (00:36→19:58)
[2022-01-31] MEDS: BENZONATATE 100 MG CAPSULE PO (00:36)
[2022-01-31 04:22] VITALS: BP 165/92; PULSE 66; RESP 24; TEMP 35.7; O2SAT 93
--- NOTE | 2022-01-31 05:17 | PCRCNOTE ---
Pt was educated on how important breathing TX are for her healing process. Per pt she will call RT if she needs a breathing TX, RN informed. Pt is resting no signs of distress present, RR-16, Sp02 94%.
[2022-01-31] MEDS: methylPREDNISolone SOD SUCC 40 MG VIAL 20 MG IV PUSH ×3 (05:58→17:08)
[2022-01-31] MEDS: PANTOPRAZOLE 40 MG TABLET PO (09:06)
[2022-01-31] MEDS: SERTRALINE HCL 50 MG TABLET 200 MG PO (09:06)
[2022-01-31] MEDS: guaiFENesin 600 MG/DEXTROMETHORPHAN 30 MG SR TAB 12 HR 1 TAB PO (09:06)
[2022-01-31] MEDS: ENOXAPARIN 40 MG/0.4 ML SYRINGE SUB-Q (09:08)
[2022-01-31] MEDS: FLUTICASONE/UMECLIDIN/VILANTER 200-62.5-25 MCG ELLIPTA 1 PUFF INHALATION (09:19)
[2022-01-31 09:21] VITALS: O2SAT 96
--- NOTE | 2022-01-31 09:33 | PM.PNPUL ---
Progress Note: A&P Assessment and Plan (1) Asthma with exacerbation: Qualifiers: Asthma persistence: persistent Asthma severity: severe Qualified Code(s): J45.51 - Severe persistent asthma with (acute) exacerbation Code(s): J45.901 - Unspecified asthma with (acute) exacerbation Status: Acute Assessment and Plan: Patient may have asthma and if so she has an exacerbation. She has improved with IV steroids, bronchodilators and azithromycin (started 01/26)/vancomycin (01/27-01/28) antibiotics. At this time I will decrease her Solu-Medrol to 40 mg IV q.6, I will increase her albuterol 2.5 mg nebulized from q.6 hours to q.4 hours. I will increase her albuterol 0.5 mg nebulized Q 6 hours to Q 4 hours. I will continue guaifenesin 600/ dextromethorphan 30 Q 12 hours. I will change her Tessalon Perles from p.r.n. to 200 mg p.o. t.i.d. Previously was on ceftriaxone 12/23 through 12/25 and azithromycin 12/25 through 12/30. She was discharged 12/25 on Augmentin X 7 days. finished Augmentin about 625 and 2 days later developed worsening cough and wheezing. Re-presented 01/05 and was treated with azithromycin X 5 days and DC on 01/11 on clindamycin 300 Q 8 X 10 days. Finished clindamycin on about 01/21 and 2 days later developed worsening cough and wheezing. She is COVID negative on this admission as well as last admission, she had a negative extended viral RNA panel last admission. urine Legionella and urine pneumococcal antigens were negative last admission. Her QuantiFERON gold was negative last admission. She had a mycoplasma IgM that was negative and a positive IgG Last admission on 01/05/2022. the patient states that many of her symptoms started after she was initiated on lisinopril for blood pressure in December of 2021 and will discontinue this medicine currently. The patient has some atypical infiltrates on her CT scan and I will send a connective tissue disorder workup including FRANCESCA screen that includes 11 different auto antibodies, an ANCA screen, a rheumatoid factor, anti CCP antibody, hypersensitivity pneumonitis panel, a CPK, and an aldolase level. the patient has a history of smoking marijuana cigarettes and marijuana oils and states he has last smoked in November 2021. I will send a urine toxicology study to confirm no use. 01/28 Today the patient tells me is she is 60% better. She still has a cough with minimal phlegm. Her white blood cell count is 10.1. Saturations are 94% on room air. Wheezes are present but diminished compared to yesterday. urine toxicology panel positive for THC. On further questioning the patient did tell me that she eats gummy TH sees her last ingestion was on 01 25. The patient also tells me that she did inhale THC vaporized oil 1 inhalation on 01/23/22. Will DC vancomycin today. Today is day 3 of 5 azithromycin. I will decrease her Solu-Medrol to 20 mg IV q.6, continue albuterol 2.5 and ipratropium 0.5 q.4 hours. Continue guaifenesin, dextromethorphan, and Tessalon Perles. Connective tissue disorder and vasculitis workup are pending. Rheumatoid factor is less than 8.6. On further questioning today the patient does state that she has inhaled THC last use was on 01/23 and this may be contributing to her current clinical symptoms of cough, wheezing and patchy ground-glass infiltrates on her CT scan. I have told her that is absolutely necessary not to inhale tobacco smoke, marijuana smoke, or vaporized chemical at all. additionally I have told her to avoid all secondhand exposure to these agents as well. She appears to understand this. 01/31 Patient slept well and states that today is the 1st day she feels good improvement. She states she is 65% back to normal. She still has persistent cough and dyspnea on exertion. Yesterday she walked 1/2 lap around the nurses station. No wheezing on normal respiration but deep respirations cause wheezing coughing. Room air saturations 93%. She stat
--- NOTE | 2022-01-31 12:04 | PM.IMPN ---
Progress Note: A&P Assessment and Plan (1) Asthma with exacerbation: Qualifiers: Asthma persistence: persistent Asthma severity: severe Qualified Code(s): J45.51 - Severe persistent asthma with (acute) exacerbation Code(s): J45.901 - Unspecified asthma with (acute) exacerbation Status: Acute (2) Pneumonia: Code(s): J18.9 - Pneumonia, unspecified organism Status: Acute (3) Cough: Code(s): R05.9 - Cough, unspecified Status: Acute (4) Pleuritic chest pain: Code(s): R07.81 - Pleurodynia Status: Acute (5) Hypertension: Code(s): I10 - Essential (primary) hypertension Status: Acute Plan 56-year-old female with a past medical history of smoking, multiple environmental exposures, and GERD who presented to the ER with shortness of breath 1)Acute Respiratory Distress: 2/2 acute asthma excerbation+?Atypical Pneumonia c/w O2 support as needed to keep sats>92% c/w Albuterol and ipratropium c/w budesonide c/w solumedrol c/w Tessalon pearls, mucinex Pulmonary consult Will repeat CXR today Add vancomycin Will give 1 dose of lasix today cats at home which are fairly new? hypersensitivity vs allergic reaction, will defer for pulmonary opinion labs in AM 2)HTN: c/w Lisinopril 3)DVT ppx: lovenox 4)Code:Full 5)Dispo: pending improvement in respiratory status Additional Plan 1)Acute Respiratory Distress: 2/2 acute asthma excerbation+?Atypical Pneumonia c/w O2 support as needed to keep sats>92% c/w Albuterol and ipratropium Add budesonide c/w solumedrol c/w Tessalon pearls, add mucinex Pulmonary consult cats at home which are fairly new? hypersensitivity vs allergic reaction, will defer for pulmonary opinion labs in AM 2)HTN: c/w Lisinopril 3)DVT ppx: lovenox 4)Code:Full 5)Dispo: pending improvement in respiratory status 01/28/2022 Interval history: patient is a 56-year-old female with history of severe uncontrolled asthma has been seen by seafood harvester and being treated with methylprednisone, azithromycin and bronchodilator, today patient states feeling better compared to when she arrived, discussed with seafood harvester plan is to continue present manage and taper Solu-Medrol to 20 mg q.6 from 40 mg q.6 today, will continue to monitor if patient's symptoms improve remains clinically stable may further taper down to prednisone 40 mg q.day it discharge, plan is to discharge the patient Monday, will continue to monitor. 01/29/2022 Interval history: patient is a 56-year-old female with history of severe uncontrolled asthma has been seen by seafood harvester and being treated with methylprednisone, azithromycin and bronchodilator, today patient states not feeling well and has difficulty with breathing compared to yesterday, patient had a long discussion with her seafood harvester regarding stopping smoking marijuana, vaping and vaping TCH, again today I have emphasize to stop smoking to prevent further damage to her lungs, on 01/28 discussed with seafood harvester plan is to continue present management and taper Solu-Medrol to 20 mg q.6 from 40 mg q.6, will continue to monitor if patient's symptoms improve remains clinically stable may further taper down to prednisone 40 mg q.day at discharge, plan is to discharge the patient Monday, will continue to monitor. 01/30/2022 Interval history: patient is a 56-year-old female with history of severe uncontrolled asthma has been seen by seafood harvester and being treated with methylprednisone, azithromycin, ICS and bronchodilators, today patient states not feeling well and has difficulty with breathing compared to yesterday, patient had a long discussion with her seafood harvester regarding stopping smoking marijuana, vaping and vaping TCH, again today I have emphasize her to stop smoking to prevent further damage to her lungs, on 01/28 discussed with seafood harvester plan was to continue present management and taper Solu-Medrol to 20 mg q.6 fro
[2022-01-31 13:49] VITALS: BP 153/89; PULSE 78; RESP 16; TEMP 36.3; O2SAT 96
--- NOTE | 2022-01-31 15:30 | STIPEVAL ---
Thank you for referring Luci Smith to [facility].? The patient is scheduled to be seen for therapy? ____x/week for ___ weeks. Please review, sign, date and return this plan of care JOE. I agree with and certify that the following plan of care is medically necessary. Referring Physician Date Admitting Provider: Nicola Slater MD Attending Provider: Nicola Slater MD Referring Provider: GALINA Inpatient Evaluation Start: 01/31/22 14:56 Freq: Status: Active Protocol: Document 01/31/22 15:04 [facility] (Rec: 01/31/22 15:17 [facility] [email or web address]) Therapy Assessment Status Assessment Status Assessment Status Evaluation Pain Assessment Self Report Self Report Pain Level 0 Pain Score Pain Score 0: Self Report Modified Barium Swallow Evaluation Recent Swallowing History Reports Dysphagia No History of Dysphagia No Other Factors Impacting Dysphagia None History of Pneumonia Yes: No CT evidence of acute pulmonary embolus. Pulmonary opacities likely refle Reported Difficult Consistencies Unable to Identify Intake Method Prior to Swallow Oral Evaluation Diet Prior to Swallow Evaluation Regular, Level 7 Liquid Consistency Prior to Swallow Thin (0) Evaluation Consistency Pureed Consistency 5 mL Method of Presentation Spoon Oral Preparatory Symptoms None Oral Phase Symptoms None Pharyngeal Phase Symptoms None Severity of Vallecular Residue None - 0% No Residue Severity of Pyriform Sinus Residue None - 0% No Residue 8 Point Laryngeal Penetration-Aspiration Material Does Not Enter Airway Scale Cervical/Esophageal Symptoms None Thin Uncontrolled 2 Method of Presentation Cup Oral Preparatory Symptoms None Oral Phase Symptoms None Pharyngeal Phase Symptoms None Severity of Vallecular Residue None - 0% No Residue Severity of Pyriform Sinus Residue None - 0% No Residue 8 Point Laryngeal Penetration-Aspiration Material Does Not Enter Airway Scale Cervical/Esophageal Symptoms None Thin Uncontrolled 1 Method of Presentation Straw Oral Preparatory Symptoms None Oral Phase Symptoms None Pharyngeal Phase Symptoms None Severity of Vallecular Residue None - 0% No Residue Severity of Pyriform Sinus Residue None - 0% No Residue 8 Point Laryngeal Penetration-Aspiration Material Does Not Enter Airway Scale Cervical/Esophageal Symptoms None Thin 5 mL Method of Presentation Spoon Oral Preparatory Symptoms None Oral Phase Symptoms None Pharyngeal Phase Symptoms None S
[2022-01-31 19:24] VITALS: BP 179/94; PULSE 99; RESP 24; TEMP 37.6; O2SAT 95
[2022-01-31] MEDS: ZOLPIDEM TARTRATE (*CRX) 5 MG TABLET PO (19:58)
[2022-02-01] MEDS: methylPREDNISolone SOD SUCC 40 MG VIAL 20 MG IV PUSH ×2 (00:21→05:46)
[2022-02-01 05:16] VITALS: BP 156/99; PULSE 85; RESP 24; TEMP 36.4; O2SAT 92
--- NOTE | 2022-02-01 08:08 | P.PNPL_ITS ---
Progress Note: A&P Assessment and Plan (1) Asthma with exacerbation: Qualifiers: Asthma persistence: persistent Asthma severity: severe Qualified Code(s): J45.51 - Severe persistent asthma with (acute) exacerbation Code(s): J45.901 - Unspecified asthma with (acute) exacerbation Status: Acute Assessment and Plan: Patient may have asthma and if so she has an exacerbation. She has improved with IV steroids, bronchodilators and azithromycin (started 01/26)/vancomycin ( 01/27-01/28) antibiotics. At this time I will decrease her Solu-Medrol to 40 mg IV q.6, I will increase her albuterol 2.5 mg nebulized from q.6 hours to q.4 hours. I will increase her albuterol 0.5 mg nebulized Q 6 hours to Q 4 hours. I will continue guaifenesin 600/ dextromethorphan 30 Q 12 hours. I will change her Tessalon Perles from p.r.n. to 200 mg p.o. t.i.d. Previously was on ceftriaxone 12/23 through 12/25 and azithromycin 12/25 through 12/30. She was discharged 12/25 on Augmentin X 7 days. finished Augmentin about 625 and 2 days later developed worsening cough and wheezing. Re-presented 01/05 and was treated with azithromycin X 5 days and DC on 01/11 on clindamycin 300 Q 8 X 10 days. Finished clindamycin on about 01/21 and 2 days later developed worsening cough and wheezing. She is COVID negative on this admission as well as last admission, she had a negative extended viral RNA panel last admission. urine Legionella and urine pneumococcal antigens were negative last admission. Her QuantiFERON gold was negative last admission. She had a mycoplasma IgM that was negative and a positive IgG Last admission on 01/05/2022. the patient states that many of her symptoms started after she was initiated on lisinopril for blood pressure in December of 2021 and will discontinue this medicine currently. The patient has some atypical infiltrates on her CT scan and I will send a connective tissue disorder workup including FRANCESCA screen that includes 11 different auto antibodies, an ANCA screen, a rheumatoid factor, anti CCP antibody, hypersensitivity pneumonitis panel, a CPK, and an aldolase level. the patient has a history of smoking marijuana cigarettes and marijuana oils and states he has last smoked in November 2021. I will send a urine toxicology study to confirm no use. 01/28 Today the patient tells me is she is 60% better. She still has a cough with minimal phlegm. Her white blood cell count is 10.1. Saturations are 94% on room air. Wheezes are present but diminished compared to yesterday. urine toxicology panel positive for THC. On further questioning the patient did tell me that she eats gummy TH sees her last ingestion was on 01 25. The patient also tells me that she did inhale THC vaporized oil 1 inhalation on 01/23/22. Will DC vancomycin today. Today is day 3 of 5 azithromycin. I will decrease her Solu-Medrol to 20 mg IV q.6, continue albuterol 2.5 and ipratropium 0.5 q.4 hours. Continue guaifenesin, dextromethorphan, and Tessalon Perles. Connective tissue disorder and vasculitis workup are pending. Rheumatoid factor is less than 8.6. On further questioning today the patient does state that she has inhaled THC last use was on 01/23 and this may be contributing to her current clinical symptoms of cough, wheezing and patchy ground-glass infiltrates on her CT scan. I have told her that is absolutely necessary not to inhale tobacco smoke, marijuana smoke, or vaporized chemical at all. additionally I have told her to avoid all secondhand exposure to these agents as well. She appears to understand this. 01/31 Patient slept well and states that today is the 1st day she feels good improvement. She states she is 65% back to
[2022-02-01] MEDS: SERTRALINE HCL 50 MG TABLET 200 MG PO (08:55)
[2022-02-01] MEDS: PANTOPRAZOLE 40 MG TABLET PO (08:56)
[2022-02-01] MEDS: predniSONE 10 MG TABLET 50 MG PO (08:56)
[2022-02-01] MEDS: ENOXAPARIN 40 MG/0.4 ML SYRINGE SUB-Q (08:57)
[2022-02-01] MEDS: FLUTICASONE/UMECLIDIN/VILANTER 200-62.5-25 MCG ELLIPTA 1 PUFF INHALATION (09:04)
[2022-02-01 09:06] VITALS: O2SAT 97
--- NOTE | 2022-02-01 12:51 | PM.IMPN ---
Progress Note: A&P Assessment and Plan (1) Asthma with exacerbation: Qualifiers: Asthma persistence: persistent Asthma severity: severe Qualified Code(s): J45.51 - Severe persistent asthma with (acute) exacerbation Code(s): J45.901 - Unspecified asthma with (acute) exacerbation Status: Acute (2) Pneumonia: Code(s): J18.9 - Pneumonia, unspecified organism Status: Acute (3) Cough: Code(s): R05.9 - Cough, unspecified Status: Acute (4) Pleuritic chest pain: Code(s): R07.81 - Pleurodynia Status: Acute (5) Hypertension: Code(s): I10 - Essential (primary) hypertension Status: Acute Plan 56-year-old female with a past medical history of smoking, multiple environmental exposures, and GERD who presented to the ER with shortness of breath 1)Acute Respiratory Distress: 2/2 acute asthma excerbation+?Atypical Pneumonia c/w O2 support as needed to keep sats>92% c/w Albuterol and ipratropium c/w budesonide c/w solumedrol c/w Tessalon pearls, mucinex Pulmonary consult Will repeat CXR today Add vancomycin Will give 1 dose of lasix today cats at home which are fairly new? hypersensitivity vs allergic reaction, will defer for pulmonary opinion labs in AM 2)HTN: c/w Lisinopril 3)DVT ppx: lovenox 4)Code:Full 5)Dispo: pending improvement in respiratory status Additional Plan 1)Acute Respiratory Distress: 2/2 acute asthma excerbation+?Atypical Pneumonia c/w O2 support as needed to keep sats>92% c/w Albuterol and ipratropium Add budesonide c/w solumedrol c/w Tessalon pearls, add mucinex Pulmonary consult cats at home which are fairly new? hypersensitivity vs allergic reaction, will defer for pulmonary opinion labs in AM 2)HTN: c/w Lisinopril 3)DVT ppx: lovenox 4)Code:Full 5)Dispo: pending improvement in respiratory status 01/28/2022 Interval history: patient is a 56-year-old female with history of severe uncontrolled asthma has been seen by professor of biological sciences and being treated with methylprednisone, azithromycin and bronchodilator, today patient states feeling better compared to when she arrived, discussed with professor of biological sciences plan is to continue present manage and taper Solu-Medrol to 20 mg q.6 from 40 mg q.6 today, will continue to monitor if patient's symptoms improve remains clinically stable may further taper down to prednisone 40 mg q.day it discharge, plan is to discharge the patient Monday, will continue to monitor. 01/29/2022 Interval history: patient is a 56-year-old female with history of severe uncontrolled asthma has been seen by professor of biological sciences and being treated with methylprednisone, azithromycin and bronchodilator, today patient states not feeling well and has difficulty with breathing compared to yesterday, patient had a long discussion with her professor of biological sciences regarding stopping smoking marijuana, vaping and vaping TCH, again today I have emphasize to stop smoking to prevent further damage to her lungs, on 01/28 discussed with professor of biological sciences plan is to continue present management and taper Solu-Medrol to 20 mg q.6 from 40 mg q.6, will continue to monitor if patient's symptoms improve remains clinically stable may further taper down to prednisone 40 mg q.day at discharge, plan is to discharge the patient Monday, will continue to monitor. 01/30/2022 Interval history: patient is a 56-year-old female with history of severe uncontrolled asthma has been seen by professor of biological sciences and being treated with methylprednisone, azithromycin, ICS and bronchodilators, today patient states not feeling well and has difficulty with breathing compared to yesterday, patient had a long discussion with her professor of biological sciences regarding stopping smoking marijuana, vaping and vaping TCH, again today I have emphasize her to stop smoking to prevent further damage to her lungs, on 01/28 discussed with professor of biological sciences plan was to continue present management and taper Solu-Medrol to 20 mg q.6 fro
[2022-02-01] MEDS: amLODIPine BESYLATE 5 MG TABLET PO (13:04)
[2022-02-01] MEDS: ACETAMINOPHEN 325 MG TABLET 650 MG PO (13:05)
[2022-02-01 14:00] VITALS: BP 158/83; PULSE 73; RESP 18; TEMP 36.4; O2SAT 94
[2022-02-01] MEDS: BENZOCAINE/MENTHOL (*BKC) 18 EA LOZENGE 1 LOZENGE PO (17:40)
[2022-02-01 19:31] VITALS: BP 160/87; PULSE 72; RESP 18; TEMP 36.5; O2SAT 96
[2022-02-01] MEDS: ZOLPIDEM TARTRATE (*CRX) 5 MG TABLET PO (20:33)
[2022-02-02 05:04] VITALS: BP 173/93; PULSE 61; RESP 20; TEMP 36.8; O2SAT 95
[2022-02-02] MEDS: ENOXAPARIN 40 MG/0.4 ML SYRINGE SUB-Q (09:11)
[2022-02-02] MEDS: PANTOPRAZOLE 40 MG TABLET PO (09:12)
[2022-02-02] MEDS: SERTRALINE HCL 50 MG TABLET 200 MG PO (09:12)
[2022-02-02] MEDS: amLODIPine BESYLATE 5 MG TABLET PO (09:12)
[2022-02-02] MEDS: predniSONE 10 MG TABLET 50 MG PO (09:12)
[2022-02-02] MEDS: ACETAMINOPHEN 325 MG TABLET 650 MG PO (09:13)
[2022-02-02] MEDS: FLUTICASONE/UMECLIDIN/VILANTER 200-62.5-25 MCG ELLIPTA 1 PUFF INHALATION (09:49)
[2022-02-02 09:50] VITALS: O2SAT 95
--- NOTE | 2022-02-02 11:58 | PCSTNOTE ---
Speech therapy treatment order previously entered by mistake, discharge clarification order entered today. Patient is functioning at baseline.
[2022-02-03 15:49] LABS: Anti Cyclic Citrullinated Pept <16 Units (<20)
[2022-02-04 03:54] LABS: Aldolase 3.7 U/L (<=8.1)
[2022-02-04 16:14] LABS: ANA Cascade Screen Negative (Negative)
[2022-02-04 22:15] LABS: ANCA Screen Negative (Negative)
--- NOTE | 2022-02-15 11:28 | PM.DS ---
DS: Admitting Diagnosis Discharge Date 02/02/22 Admitting Diagnosis shortness of breath DS: Discharge Diagnosis Discharge Diagnosis (1) Asthma with exacerbation: Qualifiers: Asthma persistence: persistent Asthma severity: severe Qualified Code(s): J45.51 - Severe persistent asthma with (acute) exacerbation Code(s): J45.901 - Unspecified asthma with (acute) exacerbation Status: Acute (2) Pneumonia: Code(s): J18.9 - Pneumonia, unspecified organism Status: Acute (3) Cough: Code(s): R05.9 - Cough, unspecified Status: Acute (4) Pleuritic chest pain: Code(s): R07.81 - Pleurodynia Status: Acute (5) Hypertension: Code(s): I10 - Essential (primary) hypertension Status: Acute Plan 56-year-old female with a past medical history of smoking, multiple environmental exposures, and GERD who presented to the ER with shortness of breath 1)Acute Respiratory Distress: 2/2 acute asthma excerbation+?Atypical Pneumonia c/w O2 support as needed to keep sats>92% c/w Albuterol and ipratropium c/w budesonide c/w solumedrol c/w Tessalon pearls, mucinex Pulmonary consult Will repeat CXR today Add vancomycin Will give 1 dose of lasix today cats at home which are fairly new? hypersensitivity vs allergic reaction, will defer for pulmonary opinion labs in AM 2)HTN: c/w Lisinopril 3)DVT ppx: lovenox 4)Code:Full 5)Dispo: pending improvement in respiratory status DS: Summary Hospital Course Reason for hospitalization: Shortness of breath Narrative: 56-year-old female with a past medical history of smoking, multiple environmental exposures, and GERD who presented to the ER with shortness of breath that an ongoing a day and half.? Patient began having symptoms in November of chronic dry cough? With associated shortness of breath.? the patient's symptoms started approximately ? September or October 2019.? She reports that the cough is dry and hacking.? She would cough until she would gag.? She noticed some associated wheezing. she saw her primary care physician in November due to worsening symptoms and was prescribed albuterol inhaler which did help with her symptoms.? Interestingly enough the patient did acquire a feral cat which became an indoor cat? in October of 2021 when she had kittens? She now has the cat and 4 kittens in her home. her symptoms worsened in December and she was admitted to the hospital December 23 due to hypoxic respiratory failure and was treated with Rocephin and azithromycin.? She was discharged home on Augmentin ? And azithromycin.? She continued using the? albuterol inhaler at home.? She reports that the inhaler does help but she uses it far more than it is prescribed.? She reports that the nebulizers seemed to help with her symptoms more than the inhaler.? She returned to the ER on 01/05/2022 with recurrent symptoms that have been ongoing for 1-2 days and increased wheezing.? She had a CT of the chest that was negative for PE and had perihilar infiltrates with a new left upper lobe ground-glass infiltrate.? She was treated with prednisone albuterol and Atrovent as well as azithromycin.? At that time her mycoplasma titers did come back positive.? For some reason the patient was not discharged home on azithromycin but was discharged home on clindamycin.? For that hospital stay she was hospitalized for 5 days.? She left against medical advice on the 5th day while TB testing was still pending.? Her TB tested eventually returned as negative.? She had a extended viral panel that was also negative.? She had overnight pulse oximetry which was unremarkable during that hospital stay.? She has never had a diagnosis of COPD or asthma before her recent hospital stays.? She was evaluated by pulmonology and was given the diagnosis of asthma at her last discharge. she did follow-up with her primary care physician and told her primary care physician that she was using her albuterol inhaler more than direc
== END 2022-02-02 14:03 | disposition home or self-care (01) | DRG 141 ==
LOC: ANHED 19:29 → ANH2MED 21:30
PROVIDERS: Internal Medicine; Internal Medicine Pulmonary Disease; Admitting Provider Internal Medicine; Emergency Provider Emergency Medicine; PCP Family Medicine; Visit Provider Chiropractor
DX: J45.51 Severe persistent asthma with (acute) exacerbation (principal); J18.9 Pneumonia, unspecified organism; R06.03 Acute respiratory distress; Z20.822 Contact with and (suspected) exposure to COVID-19; F90.9 Attention-deficit hyperactivity disorder, unspecified type; K21.9 Gastro-esophageal reflux disease without esophagitis; F32.A Depression, unspecified; I10 Essential (primary) hypertension; N39.3 Stress incontinence (female) (male); Z87.891 Personal history of nicotine dependence
CPT/HCPCS: 36415; 71045; 71046; 71275; 80048; 80307; 82085; 82550; 83605; 85025; 86036; 86038; 86200; 86331; 86430; 86606; 86609; 92611; 93005; 94640; 96361; 96365; 96366; 96372; 96374; 96375; 96376; 99285; A9270; C9803; G0378; G0379; J0456; J1650; J1940; J2920; J2930; J3370; J7040; J7512; Q9967; U0003; U0005

== ENCOUNTER 2022-09-12 12:16 | Outpatient (CLI) | payer OTHER, SELFPAY ==
--- NOTE | ~2022-09-12 | XR_ITS ---
XR hand RT min 3V DATE: 09/12/2022 12:51 INDICATION: Fall. Right hand injury, pain TECHNIQUE: 3 views COMPARISON: 07/03 2019 right hand FINDINGS: No fracture, dislocation, periosteal reaction or bone destruction. Prominent narrowing at the triscaphe joint. There is narrowing at some of the metacarpophalangeal and interphalangeal joints. IMPRESSION: Polyarticular osteoarthritis No fracture or dislocation Reviewed, dictated and finalized at location B. 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
== END 2022-09-12 12:17 | disposition home or self-care (01) ==
PROVIDERS: PCP Family Medicine; Visit Provider Internal Medicine Pulmonary Disease
DX: S69.90XA Unspecified injury of unspecified wrist, hand and finger(s), initial encounter (principal); X58.XXXA Exposure to other specified factors, initial encounter; M19.041 Primary osteoarthritis, right hand
CPT/HCPCS: 73130

== ENCOUNTER 2024-10-28 22:36 | Emergency (ER) | payer SELFPAY | END 2024-10-28 23:23 | disposition left against medical advice (07) | PROVIDERS: Emergency Provider Emergency Medicine; PCP Family Medicine | DX: Z53.21 Procedure and treatment not carried out due to patient leaving prior to being seen by health care provider (principal) | CPT/HCPCS: 99199; J0583 ==

== ENCOUNTER 2024-10-28 22:36 | Inpatient (IN) | payer SELFPAY ==
--- NOTE | ~2024-10-28 | XR_ITS ---
EXAMINATION: XR chest 1V portable 10/29/2024 01:32 INDICATION: Possible STEMI PROCEDURE: AP portable chest COMPARISON: Comparison to multiple prior studies sequentially, with oldest reviewed study dated 08/2021. FINDINGS: The lungs are clear. The cardiomediastinal silhouette is within normal limits. There are no pleural effusions. There is no pneumothorax suspected. IMPRESSION: 1: NO ACUTE CARDIOPULMONARY DISEASE. Reviewed, dictated and finalized at location A.
--- NOTE | 2024-10-28 22:44 | ECG_ITS ---
Test Date: 2024-10-28 22:49:23 Measurements Intervals [place] Rate: 76 P: 58 IL: 147 QRS: -13 QRSD: 83 T: 54 QT: 390 QTc: 441 Interpretive Statements SINUS RHYTHM WITH OCCASIONAL VENTRICULAR PREMATURE COMPLEXES POSSIBLE LEFT ATRIAL ENLARGEMENT DELAYED PRECORDIAL R/S TRANSITION LOW QRS VOLTAGE IN PRECORDIAL LEADS VOLTAGE CRITERIA FOR LVH SUBTLE ST ELEVATION ANTEROLATERAL LEADS- CONSIDER ACUTE INFARCT ABNORMAL ECG Compared to ECG 10/28/2024 22:44:08 ST ELEVATION IMPROVED Electronically Signed On 10-29-2024 10:07:58 CDT by Ajay Serrano D.O.
--- NOTE | 2024-10-28 22:49 | ECG_ITS ---
Test Date: 2024-10-28 22:44:08 Measurements Intervals [place] Rate: 70 P: 55 [place]: 139 QRS: -12 QRSD: 76 T: 29 QT: 405 QTc: 440 Interpretive Statements SINUS RHYTHM WITH OCCASIONAL VENTRICULAR PREMATURE COMPLEXES POSSIBLE LEFT ATRIAL ENLARGEMENT LOW QRS VOLTAGE IN PRECORDIAL LEADS POSSIBLE LEFT VENTRICULAR HYPERTROPHY ANTEROLATERAL ST ELEVATION MYOCARDIAL INFARCT- ACUTE ABNORMAL ECG No previous ECG available for comparison Electronically Signed On 10-29-2024 10:05:23 CDT by Ajay Serrano D.O.
[2024-10-29] VITALS (30 sets, daily range): BP systolic 84–155; BP diastolic 63–116; PULSE 66–108; RESP 13–25; TEMP 36.6–37.1; O2SAT 92–100; BMI 26.4
--- NOTE | 2024-10-29 | ECHO_ITS ---
Patient Info Name: Luci Smith Age: 59 years : 1965 Gender: Female Ht: 65 in Wt: 158 lbs BSA: 1.83 m2 HR: 68 bpm BP: 121 / 75 mmHg Heart Rhythm: Sinus Rhythm Technical Quality: Fair Exam Date: 10/29/2024 12:31 PM Exam Location: Echo Lab Patient Status: Inpatient Admit Date: 10/29/2024 Staff Ordering Physician: Ollie Elder MD Needleworker: Masha Vega RDCS Attending Provider: Ollie Elder MD Exam Type: CA echo dop color flow w con Study Info Indications - Acute coronary syndrome, ST elevation WI Complete two-dimensional, color flow and Doppler transthoracic echocardiogram is performed with contrast to opacify the left ventricle and to improve the deliniation of the left ventricle endocardial borders. Contrast/Agitated Saline Contrast/Ag. Saline: Definity Amount: 6.00 ml Summary 1. Left ventricular chamber dimension is normal. 2. There is mildly increased left ventricular wall thickness. 3. Left ventricular systolic function is mildly reduced, estimated at 45-50%. 4. There is hypokinesis of the apex, anteroseptum. 5. The left ventricular diastolic function is grade I diastolic dysfunction. 6. Right ventricular systolic function is normal. 7. Left atrial chamber dimension is mildly enlarged. 8. There is mild mitral valve regurgitation. Left Ventricle Left ventricular chamber dimension is normal. There is mildly increased left ventricular wall thickness. Left ventricular systolic function is mildly reduced, estimated at 45-50%. There is hypokinesis of the apex, anteroseptum. The left ventricular diastolic function is grade I diastolic dysfunction. Right Ventricle Right ventricular chamber dimension is normal. Right ventricular systolic function is normal. Left Atria Left atrial chamber dimension is mildly enlarged. Right Atria Right atrial chamber dimension is normal. Atrial Septum Intact interatrial septum visualized by color flow imaging. Aortic Valve The aortic valve is trileaflet. There is no aortic valve stenosis. There is no aortic valve regurgitation. Pulmonic Valve The pulmonic valve is not well visualized. Mitral Valve There is mild mitral valve regurgitation. Tricuspid Valve There is trace tricuspid valve regurgitation. Pericardium/Pleural There is no pericardial effusion. Inferior Vena Cava Normal inferior vena cava with >50% collapse upon inspiration consistent with normal right atrial pressure, 3 mmHg. Aorta The aortic root size at the sinus of Valsalva is normal. Left Ventricular Outflow Tract Name Value Normal LVOT 2D LVOT Diameter 2.94 cm LVOT Doppler LVOT Peak Gradient 3 mmHg LVOT Mean Gradient 1 mmHg LVOT VTI 15.96 cm LVOT VTI/AV VTI Ratio 0.79 LVOT Stroke Volume 108.56 ml LVOT CO 8.98 l/min LVOT CI 4.92 L/min/m2 Pulmonic Valve Name Value Normal RVOT Doppler RVOT Peak Gradient 3 mmHg PV Doppler PV Peak Gradient 3 mmHg Mitral Valve Name Value Normal MV Doppler MV Decel Duc[place]ne 293.92 cm/s2 MV PHT 0 s MV Area (PHT) 3.51 cm2 4.00-5.00 MV Diastolic Function MV E Peak Velocity 63.51 cm/s MV A Peak Velocity 51.88 cm/s MV E/A 1.22 MV Decel Time 0 s MV Annular TDI MV E/e' (Septal) 9.08 <=8.00 MV E/e' (Lateral) 8.64 <=8.00 MV E/e' (Average) 8.86 Tricuspid Valve Name Value Normal Estimated PAP/RSVP RA Pressure 3 mmHg <=5 Aortic Valve Name Value Normal AV Doppler AV Peak Velocity 116.39 cm/s AV Peak Gradient 5 mmHg AV Mean Gradient 3 mmHg AV VTI 20.15 cm AV Area (Cont Eq VTI) 5.39 cm2 >=3.00 AV Area (Cont Eq Jacoby) 4.80 cm2 AV Regurgitation 2D LVOT Area 6.80 cm2 Ventricles Name Value Normal LV Dimensions 2D/MM IVS Diastolic Thickness (2D) 0.93 cm 0.60-1.00 LVID Diastole (2D) 4.18 cm 3.80-5.20 LVIW Diastolic Thickness (2D) 0.93 cm 0.60-0.90 LVID Systole (2D) 2.71 cm 2.20-3.50 LVOT Diameter 2.94 cm LV Mass (2D Cubed) 122.60 g 67.00-162.00 LV Mass Index (2D Cubed) 0.01 g/cm2 0.00-0.01 Relative Wall Thickness (2D) 0.44 LV Fractional Shortening/Ejection Fraction 2D/MM LV Fractional Shortening (2D) 35 % 27-45 LV EF (2D Teicholz) 65 % 54-74 LV Diastolic Volume (4C MOD) 128.99 ml LV EF (4C MOD) 53 % LV Diastolic Volume (2C MOD) 113.70 ml LV EF (2C MOD) 49 % LV Diastolic Volume (BP MOD) 127.04 ml 46.00-106.00 LV Diastolic Volume Index (BP MOD) 0.07 l/m2 0.03-0.06 LV Systolic Volume (BP MOD) 59.83 ml 14.00-42.00 LV Systolic Volume Index (BP MOD) 0.03 l/m2 0.01-0.02 LV EF (BP MOD) 53 % 54-74 LV Diastolic Length (4C) 8.19 cm LV Systolic Length (4C) 6.71 cm LV Stroke Volume (4C MOD) 67.81 ml Atria Name Value Normal LA Dimensions LA Volume (4C A-L) 73.00 ml LA Volume (BP A-L) 68.14 ml RA Dimensions RA Area (4C) 11.99 cm2 <=18.00 Report Signatures
--- NOTE | 2024-10-29 01:30 | ED.GENADULT ---
HPI - General Adult General Chief complaint: Chest Pain Stated complaint: UNK History of Present Illness HPI narrative: Patient is a 59-year-old female who presents emergency department with chief complaint of chest pain patient reports that the last several days she has been having episodes of midsternal chest pain patient states that she has been having throughout the day today and reports that she went and laid down around 8830 and then when she woke up the pain was severe the patient states that she has had no prior history of cardiac disease Related Data Allergies Allergy/AdvReac Type Severity Reaction Status Date / Time No Known Allergies Allergy Mild Verified 04/29/24 07:56 Review of Systems Review of Systems: A 10 system review of systems was completed on the patient and is negative except for what is stated in the HPI. Nursing and ancillary documentation was reviewed. FOR[facility], [facility] Past Medical History Medical History Asthma Polycythemia Gastroesophageal reflux disease Depression Hypertension Insomnia Attention Deficit Hyperactivity Disorder (ADHD) Surgical History Surgical History History of hysteroscopy With dilation and curettage and endocervical polypectomy. 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 She left the job in November 2021 due to safety concerns. She lives in a home built in the she has lived there for many years. She does have 4 cats in her home. Surrogate decision maker: Maritza Smith, mother. Code status: Full code. 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 HEAD: Normocephalic, atraumatic. EYES: PERRLA and EOMI. ENT: Nares clear, no rhinorrhea or epistaxis. Mucous membranes moist. NECK: Supple. CHEST: Clear to auscultation. No respiratory distress. HEART: Regular rate and rhythm. No murmur heard. Normal peripheral pulses. ABDOMEN: Soft, nontender, nondistended, normal active bowel sounds. EXTREMITIES: Normal range of motion. No edema. SKIN: Warm, dry, no rash. NEURO: No focal deficits. Alert and oriented x3. PSYCH: Normal mood and affect. Medical Decision Making MDM Narrative Medical decision making narrative: Differential diagnosis includes ACS, unstable angina, year Initial EKG showed evidence of ST elevations concerning for possible ST-elevation NM upon arrival to the room the patient reports that her pain had improved significantly whenever she laid down on the stretcher repeat EKG at this time showed significant improvement in the ST elevations to only showing ST elevations in the single lead. The pain was essentially resolved at that time but then did start to return the case was initially be discussed with Cardiology multiple attempts were made to contact the on-call window glass installer who finally was able to be contacted in discussion the patient presents with a unstable angina/intermittent ST-elevation NM picture and the plan was to take the patient to the cardiac catheterization lab Critical Care Time Critical Care Time Critical Care Time: Yes Total Critical Care Time: 75 Discharge Plan Discharge Clinical Impression: Unstable angina, ST elevation NM (STEMI) Patient Disposition: Still a Patient Condition: Stable
[2024-10-29] MEDS: dexmedeTOMIDine 400 MCG/100 ML 400 MCG/100 ML BAG 18 MCG IV CONT (02:00)
--- NOTE | 2024-10-29 02:03 | PM.IMHP ---
H&P: HPI History of Present Illness Date/Time: 10/29/24 02:03 Chief Complaint: Chest pain, off and on for about 3 days Narrative: 59-year-old female with asthma, anxiety/depression; no known prior cardiac history. Patient presented to [facility] Emergency Room in the night of 10/28/2024-10/29/2024 with complaints of off and on chest pain for about 3 days with worsening of symptoms today associated with shortness of breath, and nausea. Patient denied prior cardiac history including clinical [place], angina, heart failure or any known arrhythmias. EKG at presentation which I personally interpreted showed sinus rhythm, PVC, ST-elevation in leads V2, V3, 1 in aVL with reciprocal ST depression in leads 3 and AVF. Cardiac catheterization lab was activated for primary PCI. Patient received aspirin, heparin in the ER. At the time of presentation in the dental laboratory technology teacher, patient had ongoing chest pain associated with nausea and vomiting, and severe anxiety. Patient underwent coronary angiogram which showed normal RCA; 100% occlusion of proximal-mid LAD with YOHANA 0 flow-infarct related vessel. No significant obstructive disease in the left circumflex artery. Patient underwent complex PCI of the LAD with IVUS, PTCA/stenting using 3.5 x 26 mm Medtronic eliud ZES with lutheran of flow. Patient was extremely agitated during the procedure. Rapid response was called, and she was given additional sedation with propofol by the ER team. Towards the end of the procedure, patient became more agitated and took out right radial sheath before left ventriculogram could be completed. Hemostasis was achieved with radial band. Review of Systems Review of Systems: General: Negative for fever, chills, fatigue Psychological: Positive for anxiety, depression Ophthalmic: negative for loss of vision ENT: Negative for epistaxis, headaches Allergy and immunology: Negative for hives, nasal congestion Hematologic and lymphatic: Negative for overt bleeding problems Endocrine: Negative for hot flashes, palpitations Respiratory: Negative for cough, hemoptysis Cardiovascular: Positive for recurrent episodes of chest pain Gastrointestinal: Positive for nausea Musculoskeletal: Negative for myalgia, joint pains Neurological: Negative for weakness Dermatological: Negative for rash, skin discoloration PMFSH Past Medical History Medical History Asthma Polycythemia Gastroesophageal reflux disease Depression Hypertension Insomnia Attention Deficit Hyperactivity Disorder (ADHD) Surgical History Surgical History History of hysteroscopy With dilation and curettage and endocervical polypectomy. 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 She left the job in November 2021 due to safety concerns. She lives in a home [place] in the she has lived there for many years. She does have 4 cats in her home. Surrogate decision maker: Maritza Smith, mother. Code status: Full code. 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 Gender identity (if verbalized by the patient): Female Spiritual care concerns: No Agree to blood products: Yes Meds Home Medications and Allergies Home Medications ?Medication ?Instructions ?Recorded ?Confirmed ?Type trazodone 50 mg tablet 50 mg PO .qhs #30 tabs 08/28/23 04/29/24 Rx ondansetron HCl 4 mg tablet 4 mg PO Q6H PRN nausea and 11/30/23 04/29/24 Rx vomiting #30 tabs sertraline 100 mg tablet See Rx Instructions .Route 06/03/24 Rx .COMPLEX #180 tabs albuterol sulfate 90 mcg/actuation 2 puff inhalation Q4H PRN 08/08/24 Rx aerosol inhaler shortness of breath or wheezing #8.5 grams dextroamphetamine-amphetamine 15 15 mg PO BID #60 tabs 09/20/24 Rx mg tablet (Adderall) Allergies Allergy/AdvReac Type Severity Reaction Status Date / Time No Known Allergies Allergy Mild Verified 04/29/24 07:56 Exam Narrative: PHYSICAL EXAMINATION: GENERAL: Alert, in acute distress due to chest pain and anxiety MENTAL STATUS: Agitated EYES: Extraocular movements intact, no pallor EARS: External ears appear normal, hearing grossly normal NOSE: Normal and patent, no discharge MOUTH: Mucous membranes moist, tongue normal NECK: Supple, no JVD CHEST: Tachypnea, Clear to auscultation HEART: Normal rate, regular rhythm, normal S1 and S2, S4 gallop, systolic murmur LSB ABDOMEN: Soft, nontender NEUROLOGICAL: Alert, oriented, agitated MUSCULOSKELETAL: No major deformity, no amputation EXTREMITIES: No pedal edema, no clubbing, no cyanosis SKIN: no rash on the exposed area, no cyanosis PSYCHIATRIC: Normal mood, appropriate affect Assessment and Plan Assessment and plan (1) ST elevation [place] (STEMI): Code(s): I21.3 - ST elevation (STEMI) myocardial infarction of unspecified site Status: Acute Assessment and Plan: 59-year-old female with asthma, anxiety/depression; no known prior cardiac history. Patient presented with 3 day history of off and on chest pain with worsening of symptoms on the day of presentation. EKG showed ST elevation in the leads V2-V3, 1 and aVL, and reciprocal ST depression in the inferior leads. Emergent coronary angiogram showed 100% occlusion of proximal-mid LAD with YOHANA 0 flow-infarct related vessel; no significant obstructive disease in other major epicardial vessels. Patient underwent complex PCI with IVUS, PTCA/stenting proximal-mid LAD using a 3.5 x 26 mm Medtronic eliud ZES with lutheran of flow. The procedure was extremely challenging due to patient's severe anxiety during the procedure despite adequate conscious sedation. Towards the end of the procedure, patient became more agitated and took out right radial sheath before left ventriculogram could be completed. Radial band was applied for local hemostasis. Rapid response was called. Patient was given propofol by the ER physician. -admit to ICU -dual antiplatelet therapy with aspirin ticagrelor (loading dose of ticagrelor given in the dental laboratory technology teacher). DAPT preferably for 1 year, then single antiplatelet treatment indefinitely as tolerated. Initiate high-intensity statin. -echo with Doppler and contrast to check LV function and rule out any mechanical complications of [place] due to patient's late presentation. May continue beta-rip, and add other appropriate medications if LV systolic dysfunction. Need for external wearable defibrillator to be determined based on LV systolic function. -labs including CBC, CMP, lipid panel, serial troponins for prognostication; HB A1c -telemetry monitoring -inpatient management of psychiatric disorder as per ICU team and hospitalist; outpatient psych evaluation. -patient cautioned about adverse cardiovascular sequelae of marijuana abuse -ICU physician updated
--- NOTE | 2024-10-29 02:21 | P.PCNCC_ITS ---
Cardiac Cath Procedure Note Date of procedure:: 10/29/24 Performing physician:: Ollie Elder MD Procedure Procedure note:: EMERGENT CARDIAC CATHETERIZATION AND PERCUTANEOUS CORONARY INTERVENTION REPORT DATE OF PROCEDURE: 10/29/2024 INDICATION FOR PROCEDURE: Acute coronary syndrome/anterolateral ST-elevation [place] BRIEF CLINICAL HISTORY: 59-year-old female with asthma, anxiety/depression;? ADD, no known prior cardiac history. Patient presented to [facility] Emergency Room in the night of 10/28/2024-10/29/2024 with complaints of off and on chest pain for about 3 days with worsening of symptoms today associated with shortness of breath, and nausea. Patient denied prior cardiac history including clinical [place], angina, heart failure or any known arrhythmias. EKG at presentation showed sinus rhythm, PVC, ST-elevation in leads V2, V3, 1 in aVL with reciprocal ST depression in leads 3 and AVF. Cardiac catheterization lab was activated for primary PCI. Patient received aspirin, heparin in the ER. At the time of presentation in the optical laboratory manager, patient had ongoing chest pain associated with nausea and vomiting, and severe anxiety. PROCEDURES PERFORMED: 1. Ultrasound-guided right radial access 2. Selective left and right coronary angiogram 3. Primary Percutaneous coronary intervention- a) intravesical ultrasound-IVUS of LAD b) PTCA/stenting of totally occluded proximal-mid LAD using a 3.5 x 26 mm Medtronic eliud [place] zotarolimus eluting stent 4. Moderate sedation-CPT code 81053 and beyond MODERATE SEDATION: Midazolam 3 mg; fentanyl 75 mcg. Patient received propofol for additional sedation due to severe agitation/anxiety, and was given by the ER physician. Start time 0027 , Stop time 0149 ; Total gzot-co-xkgc time 82 minutes; Alma Delia Frost RN was trained observer for moderate sedation. ACCESS SITE: Right radial artery PROCEDURE NOTE: Patient was emergently brought to the optical laboratory manager and prepped and draped in a usual sterile manner. After local anesthesia with lidocaine, right radial artery access was taken with micropuncture needle under ultrasound guidance followed by insertion of a 6 [place] sheath. Selective left and right coronary angiogram was performed using 6 [place] CLS 3 guide catheter and JR4 catheters respectively. Orthogonal views were taken. As described below, patient was extremely agitated during the procedure which made the procedure extremely difficult. There were no immediate procedure related complications. FINDINGS: LEFT MAIN CORONARY: Medium caliber vessel, no segment focal stenosis. LEFT ANTERIOR DESCENDING ARTERY: Lad is medium caliber vessel in the proximal most segment with minor plaque; followed by 100% thrombotic occlusion in the lower part of the proximal segment and in the mid segment with YOHANA 0 flow. After completion of PCI and mandaen of flow, the mid LAD is a medium caliber vessel which tapers distally. Diagonal branch is a small to medium caliber vessel. LEFT CIRCUMFLEX ARTERY: Medium caliber vessel, gives rise to medium caliber OM1 and OM2 branches without significant focal stenosis. RIGHT CORONARY ARTERY: Medium to large caliber, dominant vessel, gives rise to medium caliber PDA and PLV branches, no significant focal stenosis. LEFT VENTRICULOGRAM: Could not be performed, patient pulled out radial sheath before LV-gram could be performed. HEMODYNAMIC ASSESSMENT: Opening pressure 161/125 mmHg, closing pressure 186/121 mmHg. INTERVENTION REPORT: Left main coronary artery ostium was selectively engaged using 6 [place] CLS 3 guide catheter. Patient had already received aspirin, was given loading dose of ticagrelor in the optical laboratory manager. Bivalirudin used for procedural anticoagulation. The totally occluded proximal-mid LAD was crossed after numerous attempts using 014 river pilot 150 wire. Another 014 luge wire was advanced the LCX. Balloon angioplasty was performed using a 2.5 x 10 mm balloon in the LAD. Angioplasty showed high-grade stenosis in the proximal-mid LAD with sluggish blood flow in the distal LAD. Next, IVUS was performed which showed distal reference diameter of about 3 mm, and proximal reference diameter of 4 mm. Next, IC nitroglycerin was given, followed by placement of a 3.5 x 26 mm Medtronic eliud ZES at nominal pressures. There was mandaen of flow, initially sluggish which improved after repeat IC nitroglycerin. As described above, patient was extremely agitated and anxious throughout the procedure, which got worse over time. Patient started thrashing on the table despite adequate sedation. The guide catheter disengaged and wires came out of the coronary arteries during episodes of agitation. Post-dilation and post stenting IVUS could not be completed, however, post stenting angiogram showed reasonable angiographic result in the stented segment. Left ventriculogram could not be completed, as patient took out right radial sheath before left ventriculogram could be done. At this time, rapid response was called, and patient was given propofol by the ER physician with improvement in the agitation. Her chest pain resolved post PCI. Patient was transferred to the ICU. CONCLUSIONS: 1. 100% thrombotic occlusion proximal-mid LAD (infarct-related vessel); no significant obstructive disease in other major epicardial vessels. 2. Complex primary PCI-IVUS, PTCA/stenting of totally occluded proximal-mid LAD using a 3.5 x 26 mm Medtronic eliud [place] zotarolimus eluting stent. 3. Left ventriculogram could not be completed as patient was extremely anxious and agitated on the table. The radial sheath came out while patient was moving her extremities towards the end of the procedure-hemostasis achieved with radial band. PLAN/RECOMMENDATIONS: -admit to ICU -dual antiplatelet therapy with aspirin ticagrelor (loading dose of ticagrelor given in the optical laboratory manager). DAPT preferably for 1 year, then single antiplatelet treatment indefinitely as tolerated. Initiate high-intensity statin. -echo with Doppler and contrast to check LV function and rule out any mechanical complications of [place] due to patient's late presentation. May continue beta- rip, and add other appropriate medications if LV systolic dysfunction. Need for external wearable defibrillator to be determined based on LV systolic function. -labs including CBC, CMP, lipid panel, serial troponins for prognostication; HB A1c -telemetry monitoring -inpatient management of psychiatric disorder as per ICU team and hospitalist; outpatient psych evaluation. -patient cautioned about adverse cardiovascular sequelae of marijuana abuse -ICU physician updated This document was completed by using M*Modal Fluency Direct speech recognition software, therefore, garden tractor mechanic variances may occur.
[2024-10-29] MEDS: SODIUM CHLORIDE 0.9% IV 1,000 ML 125 ML IV CONT (03:16)
--- NOTE | 2024-10-29 03:33 | ADMGEN ---
This patient, Luci Smith, was admitted to Intensive Care Unit-2. Patient/family oriented to hospital policies and general routines including ID bracelet, bed and alarms, visiting hours, pain management, procedures, bathroom and other care routines, personal items, smoking policy, room service/diet, and visiting hours. Information on how to activate the Rapid Response Team has been discussed. Patient/Family are encouraged to report perceived risks to care and to ask questions if they do not understand what they are told or what they should do. Patient arrived from [facility] at 0232 via bed with RN x2 at bedside. Report received from DONNA Quintanilla at bedside. Patient resting quietly no sign or symptom of agitation.
[2024-10-29 04:19] LABS: Basophils Percent Auto 0.3 % (0.2-1.2); Eosinophils Percent Auto 0.2 % (0-4.4); Hematocrit 48.8 % (37.0-47.0); Hemoglobin 16.2 g/dL (12.0-15.0); Immature Granulocyte Absolute 0.04 K/mm3 (0.00-0.031); Immature Granulocyte Percent A 0.4 % (0-0.5); Lymphocytes Percent Auto 8.9 % (18.3-44.2); Mean Corpuscular HGB Conc 33.2 g/dl (32-36); Mean Corpuscular Hemoglobin 30.5 pg (26-34); Mean Corpuscular Volume 91.7 fl (80-100); Mean Platelet Volume 10.1 fl (7.4-10.4); Monocytes Absolute Auto 0.4 K/mm3 (0.1-0.6); Monocytes Percent Auto 3.5 % (2.6-8.5); Neutrophils Absolute Auto 9.8 K/mm3 (1.3-6.7); Neutrophils Percent Auto 86.7 % (45.5-73.1); Platelet Count Result 184 k/mm3 (150-375); Red Blood Count 5.32 M/mm3 (4.2-5.4); Red Cell Distribution Width 13.2 % (11.5-14.5); White Blood Count 11.3 K/mm3 (4.5-10.0)
[2024-10-29 04:26] LABS: Alanine Aminotransferase 46 U/L (6-35); Albumin Level 4.5 g/dL (3.5-5.1); Alkaline Phosphatase 107 U/L (38-126); Anion Gap 18 mmol/L (4-12); Aspartate Amino Transferase 179 U/L (14-36); Bilirubin,Total 1.2 mg/dL (0.2-1.3); Blood Urea Nitrogen 9 mg/dL (7-17); Calcium 8.9 mg/dL (8.4-10.2); Carbon Dioxide 19 mmol/L (22-30); Chloride 103 mmol/L (98-107); Cholesterol 290 mg/dL (0-200); Estimated Glomerular Filt Rate > 60; Glucose 193 mg/dL (65-110); HDL Direct 57 mg/dL; Potassium 3.9 mmol/L (3.4-5.0); Sodium 140 mmol/L (137-145); Triglycerides 173 mg/dL (<150)
[2024-10-29 04:37] LABS: LDL Cholesterol Direct 189 mg/dL
[2024-10-29 04:39] LABS: Hemoglobin A1C 5.7 % (<5.7)
[2024-10-29 06:04] LABS: MRSA (PCR) NOT DETECTED (NOT DETECTE)
--- NOTE | 2024-10-29 08:19 | WPDCNINT ---
Assessment and Plan Assessment and plan (1) ST elevation [place] (STEMI): Code(s): I21.3 - ST elevation (STEMI) myocardial infarction of unspecified site Status: Acute Assessment and Plan: 10/29: Patient presented with substernal chest pain, nausea, or shortness of breath, EKG showed ST-elevation in lead V2 we 3, 1 and [address]VL with reciprocal ST depressions in lead 3 and AVF. -Code STEMI was called, patient was taken to the cardiac electrical laboratory technician which she underwent a coronary angiogram whivh showed normal RCA; 100% occlusion of proximal-mid LAD with YOHANA 0 flow-infarct related vessel. No significant obstructive disease in the left circumflex artery. Patient underwent complex PCI of the LAD with IVUS, PTCA/stenting COLLETTE x1 with orthodox of flow. Patient did become agitated to was the end of the procedure according the display card writer and to guard her right radial sheath before left ventriculogram could be completed. TR band was placed on the right wrist to achieve hemostasis -continue aspirin, Brilinta, statin, beta-rip -cardiology following the patient -TR band in place (2) Hyperlipidemia: Code(s): E78.5 - Hyperlipidemia, unspecified Status: Acute Assessment and Plan: Elevated triglycerides and total cholesterol, elevated LDL cholesterol -continue high-dose statin (3) Asthma: Qualifiers: Asthma severity: mild Asthma persistence: intermittent Asthma complication type: unspecified Qualified Code(s): J45.20 - Mild intermittent asthma, uncomplicated Code(s): J45.909 - Unspecified asthma, uncomplicated Status: Acute Assessment and Plan: Will add bronchodilators (4) Hypertension: Qualifiers: Hypertension type: primary hypertension Qualified Code(s): I10 - Essential (primary) hypertension Code(s): I10 - Essential (primary) hypertension Status: Acute Assessment and Plan: Continue beta-rip (5) Anxiety: Code(s): F41.9 - Anxiety disorder, unspecified Status: Acute Assessment and Plan: Patient takes sertraline at home, will discuss with cardiology a restarted if okay with them (6) Attention Deficit Hyperactivity Disorder (ADHD): Qualifiers: Attention deficit-hyperactivity disorder type: predominantly inattentive Qualified Code(s): F90.0 - Attention-deficit hyperactivity disorder, predominantly inattentive type Code(s): F90.9 - Attention-deficit hyperactivity disorder, unspecified type Status: Acute Assessment and Plan: Take Adderall at home, will discuss with Cardiology (7) MDD (major depressive disorder): Qualifiers: Major depression recurrence: single episode Active/Remission status: currently active Major depression episode severity: mild Qualified Code(s): F32.0 - Major depressive disorder, single episode, mild Code(s): F32.9 - Major depressive disorder, single episode, unspecified Status: Acute Assessment and Plan: Patient takes sertraline (8) Transaminitis: Code(s): R74.01 - Elevation of levels of liver transaminase levels Status: Acute Assessment and Plan: Likely related to hypoperfusion secondary to STEMI Plan DVT prophylaxis: Status post STEMI Stress ulcer prophylaxis: Not indicated Nutrition: Heart healthy diet Code Status: Full code Critical Care Time Spent: 47 minutes Due to a high probability of clinically significant, life threatening deterioration, the patient required my highest level of preparedness to intervene emergently and I personally spent this critical care time directly and personally managing the patient. This critical care time included obtaining a history; examining the patient; pulse oximetry; ordering and review of studies; arranging urgent treatment with development of a management plan; evaluation of patient's response to treatment; frequent reassessment; and discussions with other providers. It was exclusive of separately billable procedures and treating other patients and teaching time. Please see Assessment and Plan section and the rest of the note for further information on patient assessment and treatment This dictation may have been done utilizing a voice recognition system. Attempts have been made to correct errors. However, there may be uncorrected grammatical, spelling, and recognitions errors present. Checker In Consult Note Consult date: 10/29/24 Reason for consult: Chest pain, ST-elevation [place] HPI: Luci Smith is a 59 year old female with past medical history of asthma, polycythemia, depression, GERD, essential hypertension, attention deficit hyperactivity disorder presented the ED on home 10/29/2024 in the early hours with complains of chest pain which has been ongoing for last several days, episodes of midsternal chest pain associated with shortness of breath and nausea, denies any diaphoresis. No known cardiac history. EKG showed sinus rhythm, ST elevations in lead V2 we 3, 1 and aVL with reciprocal ST depressions in lead 3 and AVF. Code STEMI was called, patient was taken to the cardiac electrical laboratory technician which she underwent a coronary angiogram whivh showed normal RCA; 100% occlusion of proximal-mid LAD with YOHANA 0 flow-infarct related vessel. No significant obstructive disease in the left circumflex artery. Patient underwent complex PCI of the LAD with IVUS, PTCA/stenting COLLETTE x1 with orthodox of flow. Patient did become agitated to was the end of the procedure according the display card writer and to guard her right radial sheath before left ventriculogram could be completed. TR band was placed on the right wrist to achieve hemostasis. Patient was transferred to the ICU for further management a. Upon arrival to the ICU patient was started on Precedex infusion for significant anxiety and agitation. Patient seen and examined this morning in the ICU, complains of mild chest discomfort on like which she came in with. Denies any shortness of breath, nausea vomiting at this time. Off Precedex infusion. Hemodynamically stable, adequate O2 sats on 2 L nasal cannula. Adequate urine output, afebrile. States she states she smokes weed which she will quit, alcohol use 3 to 4 times a week. Review of Systems Review of Systems: All systems reviewed & are unremarkable except as noted in HPI and below PMFSH Past Medical History Medical History Asthma Polycythemia Gastroesophageal reflux disease Depression Hypertension Insomnia Attention Deficit Hyperactivity Disorder (ADHD) Surgical History Surgical History History of hysteroscopy With dilation and curettage and endocervical polypectomy. 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 She left the job in November 2021 due to safety concerns. She lives in a home built in the 1970s she has lived there for many years. She does have 4 cats in her home. Surrogate decision maker: Maritza Smith, mother. Code status: Full code. Smoking packs per day: 0.5 Smoking cigarettes per day: 10.0 Years smoked: 22 Smoking pack-years: 11.00 Smoking status: Former smoker Tobacco type: cigarettes Second hand tobacco smoke exposure: Yes Smoking end date: 07/10/06 Alcohol intake: current Drinks per week: 3 Alcohol use details: She has not drank much alcohol this month with her current illness Substance use: current Substance use type: marijuana Other substance usage details: 3x a week Do You Feel Safe in your Home?: Yes Lack of Transportation: No Lack of Food: Never True Current Housing: I Have Housing Concerned About Future Housing: No Difficulty Paying Gas/Electric Bills: No Difficulty Paying for Meds: No Currently Unemployed: YES Education: Bachelor's Degree Difficulty w/ Childcare or Family Care: No Living arrangements: with roommate(s) Occupation/Education: occupation 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 Gender identity (if verbalized by the patient): Female Spiritual care concerns: No Agree to blood products: Yes Meds Home Medications and Allergies Home Medications ?Medication ?Instructions ?Recorded ?Confirmed ?Type ondansetron HCl 4 mg tablet 4 mg PO Q6H PRN nausea and 11/30/23 10/29/24 Rx vomiting #30 tabs sertraline 100 mg tablet See Rx Instructions .Route 06/03/24 10/29/24 Rx .COMPLEX #180 tabs albuterol sulfate 90 mcg/actuation 2 puff inhalation Q4H PRN 08/08/24 10/29/24 Rx aerosol inhaler shortness of breath or wheezing #8.5 grams dextroamphetamine-amphetamine 15 15 mg PO BID #60 tabs 09/20/24 10/29/24 Rx mg tablet (Adderall) trazodone 50 mg tablet 50 mg PO .qhs PRN insomnia 10/29/24 10/29/24 History Allergies Allergy/AdvReac Type Severity Reaction Status Date / Time No Known Allergies Allergy Mild Verified 04/29/24 07:56 Vital Signs Vital Signs - 24 hr 10/29/24 02:00 10/29/24 02:37 10/29/24 02:40 Temperature 98.3 F Pulse Rate 92 79 79 Pulse Rate [Right Radial] Respiratory Rate 25 H 24 H 24 H Blood Pressure 152/116 H Pulse Oximetry 92 Oxygen Delivery Oxygen Flow Rate 10/29/24 02:58 10/29/24 03:28 10/29/24 03:58 Temperature 98.3 F 98.3 F 98.1 F Pulse Rate 80 75 70 Pulse Rate [Right Radial] Respiratory Rate 21 H 19 20 Blood Pressure 150/107 H 125/95 H 137/94 H Pulse Oximetry 94 98 99 Oxygen Delivery Oxygen Flow Rate 10/29/24 04:00 10/29/24 04:00 10/29/24 04:00 Temperature Pulse Rate 73 70 67 Pulse Rate [Right Radial] Respiratory Rate 20 19 Blood Pressure Pulse Oximetry 99 Oxygen Delivery Nasal Cannula Oxygen Flow Rate 2 10/29/24 04:15 10/29/24 04:30 10/29/24 04:30 Temperature 97.9 F 98.0 F Pulse Rate 80 75 75 Pulse Rate [Right Radial] 80 75 Respiratory Rate 19 19 19 Blood Pressure 113/85 112/75 Pulse Oximetry 99 99 Oxygen Delivery Oxygen Flow Rate 10/29/24 04:45 10/29/24 04:58 10/29/24 05:00 Temperature 97.9 F 98.1 F Pulse Rate 74 69 69 Pulse Rate [Right Radial] 74 Respiratory Rate 20 18 19 Blood Pressure 98/73 L 94/66 L Pulse Oximetry 99 100 Oxygen Delivery Oxygen Flow Rate 10/29/24 05:00 10/29/24 05:00 10/29/24 05:15 Temperature 98.0 F 98.0 F Pulse Rate 73 74 Pulse Rate [Right Radial] 73 67 Respiratory Rate 20 19 Blood Pressure 94/66 L 94/66 L Pulse Oximetry 100 100 Oxygen Delivery Oxygen Flow Rate 10/29/24 05:30 10/29/24 05:30 10/29/24 05:45 Temperature Pulse Rate 68 Pulse Rate [Right Radial] 69 68 Respiratory Rate 19 Blood Pressure Pulse Oximetry Oxygen Delivery Oxygen Flow Rate 10/29/24 06:00 10/29/24 06:00 10/29/24 06:00 Temperature 98.2 F Pulse Rate 68 66 66 Pulse Rate [Right Radial] Respiratory Rate 15 17 Blood Pressure 84/63 L Pulse Oximetry 100 Oxygen Delivery Oxygen Flow Rate 10/29/24 06:30 10/29/24 07:00 10/29/24 07:00 Temperature 98.2 F Pulse Rate 68 70 67 Pulse Rate [Right Radial] Respiratory Rate 16 13 17 Blood Pressure 108/79 Pulse Oximetry 100 Oxygen Delivery Oxygen Flow Rate 10/29/24 08:00 Temperature 97.9 F Pulse Rate 82 Pulse Rate [Right Radial] Respiratory Rate 16 Blood Pressure 126/98 H Pulse Oximetry 100 Oxygen Delivery Oxygen Flow Rate Exam Narrative: General: Patient is pleasant, not in acute distress HEENT:? Pupils equal reactive, sclera is clear Neck:? Supple Respiratory:? Clear to auscultation bilaterally, no wheeze, adequate air entry Cardiac:? S1-S2 is normal, regular rate and rhythm Abdomen:? Soft, nontender, nondistended, normoactive bowel sound Extremities:? Right radial site as a TR band in place, palpable radial pulse, patient able to move fingers on the right side, moves all extremities, no edema Neuro:? Patient is awake, alert oriented, nonfocal, answers to questions appropriately and follows simple commands Skin:? No skin lesions noted Psych:? Normal mentation and affect Results Labs 10/29/24 03:36 10/29/24 03:36 Labs: Short CBC 10/29/24 Range/Units 03:36 WBC 11.3 H (4.5-10.0) K/mm3 Hgb 16.2 H (12.0-15.0) g/dL Hct 48.8 H (37.0-47.0) % Plt Count 184 (150-375) k/mm3 BMP 10/29/24 03:36 Sodium 140 Potassium 3.9 Chloride 103 Carbon Dioxide 19 L BUN 9 D Creatinine 0.47 L Glucose 193 H Calcium 8.9 Liver Function 10/29/24 Range/Units 03:36 Total Bilirubin 1.2 (0.2-1.3) mg/dL AST 179 H (14-36) U/L ALT 46 H (6-35) U/L Alkaline Phosphatase 107 (38-126) U/L Albumin 4.5 (3.5-5.1) g/dL Hospitalist MIPS Advance Care Plan I have confirmed that the patient's Advanced Care Plan is present, code status is documented, or surrogate decision maker is listed in patient medical record.: Yes Medication Reconciliation I have utilized all available resources to obtain, update and review the patients current medications (includes all prescriptions, OTC, herbals, cannabis, and nutritional supplements).: Yes
[2024-10-29] MEDS: TICAGRELOR 90 MG TABLET PO (08:29)
[2024-10-29] MEDS: METOPROLOL TARTRATE 12.5 MG TABLET PO ×2 (08:29→20:30)
[2024-10-29] MEDS: ASPIRIN 81 MG ENTERIC TABLET PO (08:29)
[2024-10-29] MEDS: ATORVASTATIN 40 MG TABLET 80 MG PO (08:29)
[2024-10-29] MEDS: NITROGLYCERIN SL 0.4 MG TABLET SUBLINGUAL (11:07)
--- NOTE | 2024-10-29 12:11 | P.PNCA_ITS ---
Progress Note: A&P Assessment and Plan (1) ST elevation [place] (STEMI): Code(s): I21.3 - ST elevation (STEMI) myocardial infarction of unspecified site Status: Acute Plan 1. STEMI -Emergent coronary angiogram showed 100% occlusion of proximal-mid LAD with YOHANA 0 flow-infarct related vessel; no significant obstructive disease in other major epicardial vessels. Patient underwent complex PCI with IVUS, PTCA/stenting proximal-mid LAD using a 3.5 x 26 mm Medtronic eliud COLLETTE with restorationist of flow. The procedure was extremely challenging due to patient's severe anxiety during the procedure despite adequate conscious sedation. -Echo with Doppler and contrast to check LV function and rule out any mechanical complications of UT due to patient's late presentation. May continue beta- rip, and add other appropriate medications if LV systolic dysfunction. Need for external wearable defibrillator to be determined based on LV systolic function. -Continue ASA 81mg once daily indefinitely. -Patient does not have insurance and will not be able to afford Brilinta. Therefore, will switch Brilinta to Plavix. -Continue high intensity statin. 2. Anxiety / ADHD -Can continue her home medications. Will transfer out to IMU. Recommendations and plan discussed with ICU Physician. Subjective Date/time seen: 10/29/24 12:11 Interval history: Reason for visit: STEMI HPI: 59-year-old female with asthma, anxiety/depression; no known prior cardiac history. Patient presented to [facility] Emergency Room in the night of 10/28/2024-10/29/2024 with complaints of off and on chest pain for about 3 days with worsening of symptoms today associated with shortness of breath, and nausea. Patient denied prior cardiac history including clinical UT, angina, heart failure or any known arrhythmias. EKG at presentation which I personally interpreted showed sinus rhythm, PVC, ST-elevation in leads V2, V3, 1 in aVL with reciprocal ST depression in leads 3 and AVF. Cardiac catheterization lab was activated for primary PCI. Patient received aspirin, heparin in the ER. At the time of presentation in the lab specialist, patient had ongoing chest pain associated with nausea and vomiting, and severe anxiety. Patient underwent coronary angiogram which showed normal RCA; 100% occlusion of proximal-mid LAD with YOHANA 0 flow-infarct related vessel. No significant obstructive disease in the left circumflex artery. Patient underwent complex PCI of the LAD with IVUS, PTCA/stenting using 3.5 x 26 mm Medtronic eliud ZES with restorationist of flow. Patient was extremely agitated during the procedure. Rapid response was called, and she was given additional sedation with propofol by the ER team. Towards the end of the procedure, patient became more agitated and took out right radial sheath before left ventriculogram could be completed. Hemostasis was achieved with radial band. Date of service 10/29: Having mild chest pain this morning -- improves with SL NTG. Otherwise feeling much better since PCI. Review of Systems Review of Systems: All systems reviewed & are unremarkable except as noted in HPI and below (HPI) Exam Const: General: no acute distress HENMT: Mouth: Yes moist mucous membranes Eyes: General: appearance normal, both eyes and all related structures Sclera: sclerae normal Resp: Effort & Inspection: normal respiratory effort Cardio: Rate: regular rate Rhythm: regular rhythm Heart sounds: no murmurs Skin: General skin exam: normal color Neuro: Speech: normal speech Psych: Mental Status: mental status grossly normal Affect: normal affect Objective Data Vital Signs Vital Signs: Vital Signs - 24 hr 10/29/24 02:00 10/29/24 02:37 10/29/24 02:40 Temperature 36.8 C Pulse Rate 92 79 79 Pulse Rate [Right Radial] Respiratory Rate 25 H 24 H 24 H Blood Pressure 152/116 H Pulse Oximetry 92 Oxygen Delivery Oxygen Flow Rate 10/29/24 02:58 10/29/24 03:28 10/29/24 03:58 Temperature 36.8 C 36.8 C 36.7 C Pulse Rate 80 75 70 Pulse Rate [Right Radial] Respiratory Rate 21 H 19 20 Blood Pressure 150/107 H 125/95 H 137/94 H Pulse Oximetry 94 98 99 Oxygen Delivery Oxygen Flow Rate 10/29/24 04:00 10/29/24 04:00 10/29/24 04:00 Temperature Pulse Rate 73 70 67 Pulse Rate [Right Radial] Respiratory Rate 20 19 Blood Pressure Pulse Oximetry 99 Oxygen Delivery Nasal Cannula Oxygen Flow Rate 2 10/29/24 04:15 10/29/24 04:30 10/29/24 04:30 Temperature 36.6 C 36.7 C Pulse Rate 80 75 75 Pulse Rate [Right Radial] 80 75 Respiratory Rate 19 19 19 Blood Pressure 113/85 112/75 Pulse Oximetry 99 99 Oxygen Delivery Oxygen Flow Rate 04/22/25 04:45 10/29/24 04:58 10/29/24 05:00 Temperature 36.6 C 36.7 C Pulse Rate 74 69 69 Pulse Rate [Right Radial] 74 Respiratory Rate 20 18 19 Blood Pressure 98/73 L 94/66 L Pulse Oximetry 99 100 Oxygen Delivery Oxygen Flow Rate 10/29/24 05:00 10/29/24 05:00 10/29/24 05:15 Temperature 36.7 C 36.7 C Pulse Rate 73 74 Pulse Rate [Right Radial] 73 67 Respiratory Rate 20 19 Blood Pressure 94/66 L 94/66 L Pulse Oximetry 100 100 Oxygen Delivery Oxygen Flow Rate 10/29/24 05:30 10/29/24 05:30 10/29/24 05:45 Temperature Pulse Rate 68 Pulse Rate [Right Radial] 69 68 Respiratory Rate 19 Blood Pressure Pulse Oximetry Oxygen Delivery Oxygen Flow Rate 10/29/24 06:00 10/29/24 06:00 10/29/24 06:00 Temperature 36.8 C Pulse Rate 68 66 66 Pulse Rate [Right Radial] Respiratory Rate 15 17 Blood Pressure 84/63 L Pulse Oximetry 100 Oxygen Delivery Oxygen Flow Rate 10/29/24 06:30 10/29/24 07:00 10/29/24 07:00 Temperature 36.8 C Pulse Rate 68 70 67 Pulse Rate [Right Radial] Respiratory Rate 16 13 17 Blood Pressure 108/79 Pulse Oximetry 100 Oxygen Delivery Oxygen Flow Rate 10/29/24 08:00 10/29/24 08:00 10/29/24 08:00 Temperature 36.6 C Pulse Rate 82 104 H 73 Pulse Rate [Right Radial] Respiratory Rate 16 17 Blood Pressure 126/98 H Pulse Oximetry 100 Oxygen Delivery Oxygen Flow Rate 10/29/24 08:29 10/29/24 10:00 10/29/24 10:00 Temperature 36.7 C Pulse Rate 90 71 86 Pulse Rate [Right Radial] Respiratory Rate 23 H Blood Pressure 134/92 H Pulse Oximetry 100 Oxygen Delivery Oxygen Flow Rate 10/29/24 11:07 10/29/24 11:12 10/29/24 12:00 Temperature 36.8 C Pulse Rate 80 97 75 Pulse Rate [Right Radial] Respiratory Rate 19 Blood Pressure 150/102 H 133/86 147/102 H Pulse Oximetry 95 Oxygen Delivery Oxygen Flow Rate Intake/Output Intake/Output: Intake & Output 04/19/25 04/20/25 04/21/25 04/22/25 23:59 23:59 23:59 23:59 Intake Total 733.0 Output Total 1350 Balance -617.0 Meds/Results Medications: Active Medications Generic Name Dose Route Start Last Admin Trade Name Freq PRN Reason Stop Dose Admin Albuterol 2 puff 10/29/24 08:42 Albuterol Sulfate (*Sp) Aerosol 1 Puff INHALATION Q4HRT PRN Shortness Of Breath, wheezing Aspirin 81 mg 10/29/24 09:00 10/29/24 08:29 Aspirin 81 Mg Enteric Tablet PO 81 mg QAM MARGI Administration Atorvastatin Calcium 80 mg 10/29/24 09:00 10/29/24 08:29 Atorvastatin 40 Mg Tablet PO 80 mg DAILY MARGI Administration Clopidogrel Bisulfate 600 mg 10/29/24 20:30 Clopidogrel Bisulfate 300 Mg Tablet PO 10/29/24 20:31 ONCE ONE Clopidogrel Bisulfate 75 mg 10/30/24 09:00 Clopidogrel Bisulfate 75 Mg Tablet PO QAM MARGI Metoprolol Tartrate 12.5 mg 10/29/24 09:00 10/29/24 08:29 Metoprolol Tartrate 12.5 Mg Tablet PO 12.5 mg Q12HR MARGI Administration Miscellaneous Information 0 each 10/29/24 00:01 Adderall Non Formulary- XX 11/28/24 00:00 CLARIFY MARGI Nitroglycerin 0.4 mg 10/29/24 11:08 10/29/24 11:07 Nitroglycerin Sl 0.4 Mg Tablet SUBLINGUAL 0.4 mg Q5MIN PRN Administration Chest Pain Non-Formulary Medication 15 mg 10/29/24 17:00 Dextroamphetamine-Amphetamine [Adderall] PO 11/28/24 16:59 BID MARGI Perflutren Lipid Microsphere 0 ml 10/29/24 02:01 Perflutren Lipid Microspheres 1.5 Ml Vial Diluted To 10 Ml Total Volume IV PUSH 11/01/24 02:02 ONCE PRN adequate visualization Protocol Radiology Results: ITS Impressions Chest X-Ray 10/29/24 07:07 IMPRESSION: 1: NO ACUTE CARDIOPULMONARY DISEASE. Labs Labs: Laboratory Results - last 24 hr 10/29/24 10/29/24 03:36 04:46 WBC 11.3 H RBC 5.32 Hgb 16.2 H Hct 48.8 H MCV 91.7 MCH 30.5 MCHC 33.2 RDW 13.2 Plt Count 184 MPV 10.1 Immature Gran % (Auto) 0.4 Neut % (Auto) 86.7 H Lymph % (Auto) 8.9 L [place] % (Auto) 3.5 Eos % (Auto) 0.2 Baso % (Auto) 0.3 Lymph # (Auto) 1.00 [place] # (Auto) 0.4 Eos # (Auto) 0.0 Baso # (Auto) 0.0 Abs Immat Gran (auto) 0.04 H Absolute Neuts (auto) 9.8 H Absolute Nucleated RBC 0.000 Nucleated RBC % 0.0 Sodium 140 Potassium 3.9 Chloride 103 Carbon Dioxide 19 L Anion Gap 18 H BUN 9 D Creatinine 0.47 L Estim Creat Clear Calc Not Reportable Estimated GFR > 60 Glucose 193 H Hemoglobin A1c 5.7 Calcium 8.9 Total Bilirubin 1.2 AST 179 H ALT 46 H Alkaline Phosphatase 107 Total Protein 8.0 Albumin 4.5 Triglycerides 173 H Cholesterol 290 H LDL Cholesterol Direct 189 HDL Direct 57 Nasal MRSA (PCR) Not detected
[2024-10-29] MEDS: PERFLUTREN LIPID MICROSPHERES 1.5 ML VIAL DILUTED TO 10 ML TOTAL VOLUME IV PUSH (13:20)
--- NOTE | 2024-10-29 13:42 | IVDEFINITY ---
Prior to administration of IV Definity the patient was educated on the risks and benefits of the imaging enhancing agent including potential adverse side effects. The patient verbalized understanding. Allergies were verified. No exclusion criteria were identified and at least one of the following inclusion criteria were met: 1) physician request, 2) patient technically difficult to image (per the [place] [employer]ocardi[employer] guidelines of two or more segments not discernable within the apical view), or 3) questionable left ventricular function. ?
--- NOTE | 2024-10-29 14:14 | ECG_ITS ---
Test Date: 2024-10-29 14:37:06 Measurements Intervals [place] Rate: 87 P: 63 CA: 142 QRS: -1 QRSD: 84 T: 126 QT: 439 QTc: 530 Interpretive Statements SINUS RHYTHM MARKED ST ELEVATION, CONSIDER RECENT ANTEROSEPTAL INFARCT RECIPROCAL ST DEPRESSION IN INFERIOR LEADS ABNORMAL ECG Compared to ECG 10/28/2024 22:49:23 ST ELEVATION WORSENED Electronically Signed On 10-29-2024 14:46:02 CDT by Ajay Serrano D.O.
--- NOTE | 2024-10-29 14:44 | P.CONIM_ITS ---
Assessment and Plan Assessment and plan (1) Attention Deficit Hyperactivity Disorder (ADHD): Qualifiers: Attention deficit-hyperactivity disorder type: predominantly inattentive Qualified Code(s): F90.0 - Attention-deficit hyperactivity disorder, predominantly inattentive type Code(s): F90.9 - Attention-deficit hyperactivity disorder, unspecified type Status: Acute (2) Anxiety: Code(s): F41.9 - Anxiety disorder, unspecified Status: Acute (3) ST elevation [place] (STEMI): Code(s): I21.3 - ST elevation (STEMI) myocardial infarction of unspecified site Status: Acute Plan 59 year old female to the ER with c/o CP and patient was found to have STEMI, was seen by the cell tuber hand and patient had emergent cath which showed 100% occlusion of proximal-mid LAD with YOHANA 0 flow-infarct related vessel; the vessel was stented however during the procedure and afterward patient became agitated and combative removed, patient took out her right radial sheath before completing the procedure, after the procedure patient was transfer to ICU, currently patient is calm and cooperative, we were consulted for patient agitation. Patient with history of anxiety, ADHD, insomnia and depression and upon arrival patient was positive for cannabinoids, combination all these commodities and chest pain with STEMI may have caused patient to be aggressive and agitated. currently patine is calm and cooperative, will monitor. HPI Date of Consult Consult date: 10/29/24 Requesting Physician: Ollie Elder MD Primary Care Provider: Geo Oleary MD Consult Narrative Narrative: Luci Smith is a 59 year old female to the ER with c/o CP and patient was found to have STEMI, was seen by the cell tuber hand and patient had emergent cath which showed 100% occlusion of proximal-mid LAD with YOHANA 0 flow-infarct related vessel; the vessel was stented however during the procedure and afterward patient became agitated and combative removed, patient took out her right radial sheath before completing the procedure, after the procedure patient was transfer to ICU, currently patient is calm and cooperative, we were consulted for patient agitation. Patient with history of anxiety, ADHD, insomnia and depression and upon arrival patient was positive for cannabinoids, combination all these commodities and chest pain with STEMI may have caused patient to be aggressive and agitated. currently patine is calm and cooperative, will monitor. Review of Systems 2 Review of Systems: All systems reviewed & are unremarkable except as noted in HPI and below (HPI) [facility] Past Medical History Medical History Asthma Polycythemia Gastroesophageal reflux disease Depression Hypertension Insomnia Attention Deficit Hyperactivity Disorder (ADHD) Surgical History Surgical History History of hysteroscopy With dilation and curettage and endocervical polypectomy. 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 She left the job in November 2021 due to safety concerns. She lives in a home built in the 1970s she has lived there for many years. She does have 4 cats in her home. Surrogate decision maker: Maritza Smith, mother. Code status: Full code. Smoking packs per day: 0.5 Smoking cigarettes per day: 10.0 Years smoked: 22 Smoking pack-years: 11.00 Smoking status: Former smoker Tobacco type: cigarettes Second hand tobacco smoke exposure: Yes Smoking end date: 07/10/06 Alcohol intake: current Drinks per week: 3 Alcohol use details: She has not drank much alcohol this month with her current illness Substance use: current Substance use type: marijuana Other substance usage details: 3x a week Do You Feel Safe in your Home?: Yes Lack of Transportation: No Lack of Food: Never True Current Housing: I Have Housing Concerned About Future Housing: No Difficulty Paying Gas/Electric Bills: No Difficulty Paying for Meds: No Currently Unemployed: YES Education: Bachelor's Degree Difficulty w/ Childcare or Family Care: No Living arrangements: with roommate(s) Occupation/Education: occupation 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 Gender identity (if verbalized by the patient): Female Spiritual care concerns: No Agree to blood products: Yes Meds Home Medications and Allergies Home Medications ?Medication ?Instructions ?Recorded ?Confirmed ?Type ondansetron HCl 4 mg tablet 4 mg PO Q6H PRN nausea and 11/30/23 10/29/24 Rx vomiting #30 tabs sertraline 100 mg tablet See Rx Instructions .Route 06/03/24 10/29/24 Rx .COMPLEX #180 tabs albuterol sulfate 90 mcg/actuation 2 puff inhalation Q4H PRN 08/08/24 10/29/24 Rx aerosol inhaler shortness of breath or wheezing #8.5 grams dextroamphetamine-amphetamine 15 15 mg PO BID #60 tabs 09/20/24 10/29/24 Rx mg tablet (Adderall) trazodone 50 mg tablet 50 mg PO .qhs PRN insomnia 10/29/24 10/29/24 History Allergies Allergy/AdvReac Type Severity Reaction Status Date / Time No Known Allergies Allergy Mild Verified 04/29/24 07:56 Vital Signs Vital Signs - 24 hr 10/29/24 02:00 10/29/24 02:37 10/29/24 02:40 Temperature 36.8 C Pulse Rate 92 79 79 Pulse Rate [Right Radial] Respiratory Rate 25 H 24 H 24 H Blood Pressure 152/116 H Pulse Oximetry 92 Oxygen Delivery Oxygen Flow Rate 10/29/24 02:58 10/29/24 03:28 10/29/24 03:58 Temperature 36.8 C 36.8 C 36.7 C Pulse Rate 80 75 70 Pulse Rate [Right Radial] Respiratory Rate 21 H 19 20 Blood Pressure 150/107 H 125/95 H 137/94 H Pulse Oximetry 94 98 99 Oxygen Delivery Oxygen Flow Rate 10/29/24 04:00 10/29/24 04:00 10/29/24 04:00 Temperature Pulse Rate 73 70 67 Pulse Rate [Right Radial] Respiratory Rate 20 19 Blood Pressure Pulse Oximetry 99 Oxygen Delivery Nasal Cannula Oxygen Flow Rate 2 10/29/24 04:15 10/29/24 04:30 10/29/24 04:30 Temperature 36.6 C 36.7 C Pulse Rate 80 75 75 Pulse Rate [Right Radial] 80 75 Respiratory Rate 19 19 19 Blood Pressure 113/85 112/75 Pulse Oximetry 99 99 Oxygen Delivery Oxygen Flow Rate 10/29/24 04:45 10/29/24 04:58 10/29/24 05:00 Temperature 36.6 C 36.7 C Pulse Rate 74 69 69 Pulse Rate [Right Radial] 74 Respiratory Rate 20 18 19 Blood Pressure 98/73 L 94/66 L Pulse Oximetry 99 100 Oxygen Delivery Oxygen Flow Rate 10/29/24 05:00 10/29/24 05:00 10/29/24 05:15 Temperature 36.7 C 36.7 C Pulse Rate 73 74 Pulse Rate [Right Radial] 73 67 Respiratory Rate 20 19 Blood Pressure 94/66 L 94/66 L Pulse Oximetry 100 100 Oxygen Delivery Oxygen Flow Rate 10/29/24 05:30 10/29/24 05:30 10/29/24 05:45 Temperature Pulse Rate 68 Pulse Rate [Right Radial] 69 68 Respiratory Rate 19 Blood Pressure Pulse Oximetry Oxygen Delivery Oxygen Flow Rate 10/29/24 06:00 10/29/24 06:00 10/29/24 06:00 Temperature 36.8 C Pulse Rate 68 66 66 Pulse Rate [Right Radial] Respiratory Rate 15 17 Blood Pressure 84/63 L Pulse Oximetry 100 Oxygen Delivery Oxygen Flow Rate 10/29/24 06:30 10/29/24 07:00 10/29/24 07:00 Temperature 36.8 C Pulse Rate 68 70 67 Pulse Rate [Right Radial] Respiratory Rate 16 13 17 Blood Pressure 108/79 Pulse Oximetry 100 Oxygen Delivery Oxygen Flow Rate 10/29/24 08:00 10/29/24 08:00 10/29/24 08:00 Temperature 36.6 C Pulse Rate 82 104 H 73 Pulse Rate [Right Radial] Respiratory Rate 16 17 Blood Pressure 126/98 H Pulse Oximetry 100 Oxygen Delivery Oxygen Flow Rate 10/29/24 08:29 10/29/24 10:00 10/29/24 10:00 Temperature 36.7 C Pulse Rate 90 71 86 Pulse Rate [Right Radial] Respiratory Rate 23 H Blood Pressure 134/92 H Pulse Oximetry 100 Oxygen Delivery Oxygen Flow Rate 10/29/24 11:07 10/29/24 11:12 10/29/24 12:00 Temperature Pulse Rate 80 97 71 Pulse Rate [Right Radial] Respiratory Rate Blood Pressure 150/102 H 133/86 Pulse Oximetry Oxygen Delivery Oxygen Flow Rate 10/29/24 12:00 10/29/24 14:00 Temperature 36.8 C Pulse Rate 75 79 Pulse Rate [Right Radial] Respiratory Rate 19 Blood Pressure 147/102 H Pulse Oximetry 95 Oxygen Delivery Oxygen Flow Rate Exam 2 Narrative: Patient is comfortable, NAD HEENT: eyes are clear and none icteric LUNGS:CTA HEART: RR S1S2 ABD: BS+, Soft and nontender Lower extremities: no edema SKIN: nonjaundiced Neuro: grossly intact. Results Labs 10/29/24 03:36 10/29/24 03:36 Labs: Short CBC 10/29/24 Range/Units 03:36 WBC 11.3 H (4.5-10.0) K/mm3 Hgb 16.2 H (12.0-15.0) g/dL Hct 48.8 H (37.0-47.0) % Plt Count 184 (150-375) k/mm3 BMP 10/29/24 03:36 Sodium 140 Potassium 3.9 Chloride 103 Carbon Dioxide 19 L BUN 9 D Creatinine 0.47 L Glucose 193 H Calcium 8.9 Liver Function 10/29/24 Range/Units 03:36 Total Bilirubin 1.2 (0.2-1.3) mg/dL AST 179 H (14-36) U/L ALT 46 H (6-35) U/L Alkaline Phosphatase 107 (38-126) U/L Albumin 4.5 (3.5-5.1) g/dL
--- NOTE | 2024-10-29 17:16 | PC.NURSE ---
This patient, Luci Smith, was transferred to [[facility] ] on 10/29/24 at 1716. Personal belongings sent with patient. Report given to [Little ]. Appropriate documentation sent with patient.
--- NOTE | 2024-10-29 18:04 | PC.NURSE ---
This patient, Luci Smith, was received from ICU on 10/29/24 at 1709. Patient/family oriented to unit policies and routines. Personal belongings sent with patient. Appropriate documentation sent with patient.
[2024-10-29] MEDS: ACETAMINOPHEN 325 MG TABLET 650 MG PO (18:11)
[2024-10-29] MEDS: CLOPIDOGREL BISULFATE 300 MG TABLET 600 MG PO (20:30)
[2024-10-30] VITALS (9 sets, daily range): BP systolic 114–147; BP diastolic 65–87; PULSE 93–123; RESP 16–18; TEMP 36.7–36.9; O2SAT 98–100
[2024-10-30 05:14] LABS: Basophils Percent Auto 0.2 % (0.2-1.2); Eosinophils Absolute Auto 0.1 K/mm3 (0-0.3); Eosinophils Percent Auto 0.9 % (0-4.4); Hematocrit 46.1 % (37.0-47.0); Hemoglobin 15.7 g/dL (12.0-15.0); Immature Granulocyte Absolute 0.05 K/mm3 (0.00-0.031); Immature Granulocyte Percent A 0.4 % (0-0.5); Lymphocytes Absolute Auto 1.81 K/mm3 (0.9-3.2); Lymphocytes Percent Auto 15.3 % (18.3-44.2); Mean Corpuscular HGB Conc 34.1 g/dl (32-36); Mean Corpuscular Hemoglobin 30.5 pg (26-34); Mean Corpuscular Volume 89.7 fl (80-100); Mean Platelet Volume 10.4 fl (7.4-10.4); Monocytes Absolute Auto 0.7 K/mm3 (0.1-0.6); Monocytes Percent Auto 6.3 % (2.6-8.5); Neutrophils Absolute Auto 9.1 K/mm3 (1.3-6.7); Neutrophils Percent Auto 76.9 % (45.5-73.1); Platelet Count Result 185 k/mm3 (150-375); Red Blood Count 5.14 M/mm3 (4.2-5.4); Red Cell Distribution Width 13.3 % (11.5-14.5); White Blood Count 11.8 K/mm3 (4.5-10.0)
[2024-10-30 05:30] LABS: Alanine Aminotransferase 68 U/L (6-35); Albumin Level 4.3 g/dL (3.5-5.1); Alkaline Phosphatase 101 U/L (38-126); Anion Gap 9 mmol/L (4-12); Aspartate Amino Transferase 287 U/L (14-36); Bilirubin,Total 1.7 mg/dL (0.2-1.3); Blood Urea Nitrogen 8 mg/dL (7-17); Calcium 8.9 mg/dL (8.4-10.2); Carbon Dioxide 26 mmol/L (22-30); Chloride 103 mmol/L (98-107); Estimated CRCL calculation 82 ml/min; Estimated Glomerular Filt Rate > 60; Glucose 138 mg/dL (65-110); Magnesium 1.9 mg/dL (1.6-2.3); Phosphorus 2.8 mg/dL (2.5-4.5); Potassium 3.6 mmol/L (3.4-5.0); Sodium 138 mmol/L (137-145)
--- NOTE | 2024-10-30 07:21 | P.PNIM_ITS ---
Progress Note: A&P Assessment and Plan (1) Attention Deficit Hyperactivity Disorder (ADHD): Qualifiers: Attention deficit-hyperactivity disorder type: predominantly inattentive Qualified Code(s): F90.0 - Attention-deficit hyperactivity disorder, predominantly inattentive type Code(s): F90.9 - Attention-deficit hyperactivity disorder, unspecified type Status: Acute (2) Anxiety: Code(s): F41.9 - Anxiety disorder, unspecified Status: Acute (3) ST elevation [place] (STEMI): Code(s): I21.3 - ST elevation (STEMI) myocardial infarction of unspecified site Status: Acute Plan STEMI -Emergent coronary angiogram showed 100% occlusion of proximal-mid LAD with YOHANA 0 flow-infarct related vessel; no significant obstructive disease in other major epicardial vessels. Patient underwent complex PCI with IVUS, PTCA/stenting proximal-mid LAD using a 3.5 x 26 mm Medtronic eliud COLLETTE with restorationism of flow. The procedure was extremely challenging due to patient's severe anxiety during the procedure despite adequate conscious sedation. -Echo with Doppler and contrast to check LV function and rule out any mechanical complications of FL due to patient's late presentation. -As cardiology :May continue beta-rip, and add other appropriate medications if LV systolic dysfunction. Need for external wearable defibrillator to be determined based on LV systolic function. -Continue ASA 81mg once daily indefinitely. -Patient does not have insurance and will not be able to afford Brilinta. Therefore, will switch Brilinta to Plavix. -Continue high intensity statin. Anxiety / ADHD -Continue home medications. Subjective Date/time seen: 10/30/24 07:21 Interval history: Interval Hx: Luci Smith is a 59 year old female with past medical history of asthma, polycythemia, depression, GERD, essential hypertension, attention deficit hyperactivity disorder presented the ED on home 10/29/2024 in the early hours with complains of chest pain which has been ongoing for last several days, episodes of midsternal chest pain associated with shortness of breath and nausea, denies any diaphoresis. No known cardiac history. EKG showed sinus rhythm, ST elevations in lead V2 we 3, 1 and [address]VL with reciprocal ST depressions in lead 3 and AVF. Code STEMI was called, patient was taken to the cardiac slab depiler operator which she underwent a coronary angiogram which showed normal RCA; 100% occlusion of proximal-mid LAD with YOHANA 0 flow-infarct related vessel. No significant obstructive disease in the left circumflex artery. Patient underwent complex PCI of the LAD with IVUS, PTCA/stenting COLLETTE x1 with restorationism of flow. Patient did become agitated to was the end of the procedure according the substance abuse rn and to guard her right radial sheath before left ventriculogram could be completed. TR band was placed on the right wrist to achieve hemostasis. Patient was transferred to the ICU and currently in IMU . 10/30: Patient is currently doing well and dc'ed from cardiology Review of Systems Review of Systems: All systems reviewed & are unremarkable except as noted in HPI and below (HPI) Exam Narrative: Patient is comfortable, NAD HEENT: eyes are clear and none icteric LUNGS:CTA HEART: RR S1S2 ABD: BS+, Soft and nontender Lower extremities: no edema SKIN: nonjaundiced Neuro: grossly intact. Objective Data Vital Signs Vital Signs: Vital Signs - 24 hr 10/29/24 08:00 10/29/24 08:00 10/29/24 08:00 Temperature 97.9 F Pulse Rate 82 104 H Respiratory Rate 16 17 Blood Pressure 126/98 H Pulse Oximetry 100 Oxygen Delivery Room Air 10/29/24 08:00 10/29/24 08:29 10/29/24 10:00 Temperature Pulse Rate 73 90 71 Respiratory Rate Blood Pressure Pulse Oximetry Oxygen Delivery 10/29/24 10:00 10/29/24 11:07 10/29/24 11:12 Temperature 98.0 F Pulse Rate 86 80 97 Respiratory Rate 23 H Blood Pressure 134/92 H 150/102 H 133/86 Pulse Oximetry 100 Oxygen Delivery 10/29/24 12:00 10/29/24 12:00 10/29/24 14:00 Temperature 98.2 F Pulse Rate 71 75 79 Respiratory Rate 19 Blood Pressure 147/102 H Pulse Oximetry 95 Oxygen Delivery 10/29/24 16:00 10/29/24 16:00 10/29/24 16:00 Temperature 98.7 F Pulse Rate 95 96 Respiratory Rate 24 H Blood Pressure 155/107 H Pulse Oximetry 94 Oxygen Delivery Room Air 10/29/24 16:36 10/29/24 18:00 10/29/24 20:00 Temperature Pulse Rate 99 101 H Respiratory Rate Blood Pressure 150/96 H Pulse Oximetry Oxygen Delivery Room Air 04/22/25 20:00 10/29/24 20:00 10/29/24 22:00 Temperature 98.0 F Pulse Rate 108 H 99 92 Respiratory Rate 18 Blood Pressure 142/88 H Pulse Oximetry 95 Oxygen Delivery 10/30/24 00:00 10/30/24 00:00 10/30/24 00:00 Temperature 98.1 F Pulse Rate 93 108 H Respiratory Rate 18 Blood Pressure 143/87 H Pulse Oximetry 100 Oxygen Delivery Room Air 10/30/24 02:00 10/30/24 03:28 10/30/24 04:00 Temperature 98.2 F Pulse Rate 93 106 H Respiratory Rate 18 Blood Pressure 147/81 H Pulse Oximetry 100 Oxygen Delivery Room Air 10/30/24 04:00 10/30/24 06:00 Temperature Pulse Rate 96 98 Respiratory Rate Blood Pressure Pulse Oximetry Oxygen Delivery Intake/Output Intake/Output: Intake & Output 10/27/24 10/28/24 10/29/24 10/30/24 23:59 23:59 23:59 23:59 Intake Total 1358.0 Output Total 2100 900 Balance -742.0 -900 Meds/Results Medications: Active Medications Generic Name Dose Route Start Last Admin Trade Name Freq PRN Reason Stop Dose Admin Acetaminophen 650 mg 10/29/24 18:02 10/29/24 18:11 Acetaminophen 325 Mg Tablet PO 650 mg Q6H PRN Administration Mild Pain (1-3) or Fever Albuterol 2 puff 10/29/24 08:42 Albuterol Sulfate (*Sp) Aerosol 1 Puff INHALATION Q4HRT PRN Shortness Of Breath, wheezing Aspirin 81 mg 10/29/24 09:00 10/29/24 08:29 Aspirin 81 Mg Enteric Tablet PO 81 mg QAM [facility] Administration Atorvastatin Calcium 80 mg 10/29/24 09:00 10/29/24 08:29 Atorvastatin 40 Mg Tablet PO 80 mg DAILY MARGI Administration Clopidogrel Bisulfate 75 mg 10/30/24 09:00 Clopidogrel Bisulfate 75 Mg Tablet PO QAM [facility] Losartan Potassium 25 mg 10/30/24 09:00 Losartan Potassium 25 Mg Tablet PO DAILY [facility] Metoprolol Succinate 25 mg 10/30/24 09:00 Metoprolol Succinate Ext Rel 25 Mg Tabcr PO QAM [facility] Nitroglycerin 0.4 mg 10/29/24 11:08 10/29/24 11:07 Nitroglycerin Sl 0.4 Mg Tablet SUBLINGUAL 0.4 mg Q5MIN PRN Administration Chest Pain Trazodone HCl 50 mg 10/29/24 15:31 Trazodone Hcl 50 Mg Tablet PO .qhs PRN insomnia Radiology Results: ITS Impressions Chest X-Ray 10/29/24 07:07 IMPRESSION: 1: NO ACUTE CARDIOPULMONARY DISEASE. Labs Labs: Laboratory Results - last 24 hr 10/30/24 03:41 WBC 11.8 H RBC 5.14 Hgb 15.7 H Hct 46.1 MCV 89.7 MCH 30.5 MCHC 34.1 RDW 13.3 Plt Count 185 MPV 10.4 Immature Gran % (Auto) 0.4 Neut % (Auto) 76.9 H Lymph % (Auto) 15.3 L Steele % (Auto) 6.3 Eos % (Auto) 0.9 Baso % (Auto) 0.2 Lymph # (Auto) 1.81 Steele # (Auto) 0.7 H Eos # (Auto) 0.1 Baso # (Auto) 0.0 Abs Immat Gran (auto) 0.05 H Absolute Neuts (auto) 9.1 H Absolute Nucleated RBC 0.000 Nucleated RBC % 0.0 Sodium 138 Potassium 3.6 Chloride 103 Carbon Dioxide 26 Anion Gap 9 BUN 8 Creatinine 0.57 L Estim Creat Clear Calc 82 Estimated GFR > 60 Glucose 138 H Calcium 8.9 Phosphorus 2.8 Magnesium 1.9 Total Bilirubin 1.7 H AST 287 H ALT 68 H Alkaline Phosphatase 101 Total Protein 7.0 Albumin 4.3 Hospitalist MIPS Advance Care Plan I have confirmed that the patient's Advanced Care Plan is present, code status is documented, or surrogate decision maker is listed in patient medical record.: Yes Medication Reconciliation I have utilized all available resources to obtain, update and review the patients current medications (includes all prescriptions, OTC, herbals, cannabis, and nutritional supplements).: Yes
[2024-10-30] MEDS: METOPROLOL SUCCINATE EXT REL 25 MG TABCR PO (08:11)
[2024-10-30] MEDS: ATORVASTATIN 40 MG TABLET 80 MG PO (08:11)
[2024-10-30] MEDS: CLOPIDOGREL BISULFATE 75 MG TABLET PO (08:12)
[2024-10-30] MEDS: ASPIRIN 81 MG ENTERIC TABLET PO (08:12)
[2024-10-30] MEDS: LOSARTAN POTASSIUM 25 MG TABLET PO (08:12)
--- NOTE | 2024-10-30 09:49 | PM.DS ---
DS: Admitting Diagnosis Discharge Date 10/30/2024 Admitting Diagnosis Anterior STEMI DS: Discharge Diagnosis Discharge Diagnosis (1) ST elevation [place] (STEMI): Code(s): I21.3 - ST elevation (STEMI) myocardial infarction of unspecified site Status: Acute DS: Summary Hospital Course Reason for hospitalization: Anterior STEMI Hospital Course: 1. Anterior STEMI -Emergent coronary angiogram showed 100% occlusion of proximal-mid LAD with YOHANA 0 flow - infarct related vessel; no significant obstructive disease in other major epicardial vessels. Patient underwent complex PCI with IVUS, PTCA/stenting proximal-mid LAD using a 3.5 x 26 mm Medtronic eliud COLLETTE with lutheran of flow. The procedure was extremely challenging due to patient's severe anxiety during the procedure despite adequate conscious sedation. -Echocardiogram with LVEF 45-50%, hypokinesis of the anteroseptum, apex. -Continue ASA 81mg once daily indefinitely. -Patient does not have insurance and will not be able to afford Brilinta. Therefore, switched Brilinta to Plavix. Will need to be on Plavix for at least 1 year. -Continue high intensity statin. 2. Ischemic cardiomyopathy -Echocardiogram with LVEF 45-50%, hypokinesis of the anteroseptum, apex. -Started Toprol. -Started Losartan. 3. Anxiety / ADHD -Can continue her home medications. Status at Discharge Cognitive/behavioral status at discharge: Stable Functional status at discharge: independent ambulation Overall status at discharge: patient is back to baseline Time Spent with Patient Time attestation: Total time spent providing and/or coordinating discharge services: Exam Const: General: no acute distress HENMT: Mouth: Yes moist mucous membranes Eyes: General: appearance normal, both eyes and all related structures Sclera: sclerae normal Resp: Effort & Inspection: normal respiratory effort Cardio: Rate: regular rate Rhythm: regular rhythm Heart sounds: no murmurs Skin: General skin exam: normal color Psych: Mental Status: mental status grossly normal Affect: normal affect DS: Data Data Completed and Pending Labs on day of discharge: Labs from last 24 hours 10/30/24 03:41 WBC 11.8 H RBC 5.14 Hgb 15.7 H Hct 46.1 MCV 89.7 MCH 30.5 MCHC 34.1 RDW 13.3 Plt Count 185 MPV 10.4 Immature Gran % (Auto) 0.4 Neut % (Auto) 76.9 H Lymph % (Auto) 15.3 L [place] % (Auto) 6.3 Eos % (Auto) 0.9 Baso % (Auto) 0.2 Lymph # (Auto) 1.81 [place] # (Auto) 0.7 H Eos # (Auto) 0.1 Baso # (Auto) 0.0 Abs Immat Gran (auto) 0.05 H Absolute Neuts (auto) 9.1 H Absolute Nucleated RBC 0.000 Nucleated RBC % 0.0 Sodium 138 Potassium 3.6 Chloride 103 Carbon Dioxide 26 Anion Gap 9 BUN 8 Creatinine 0.57 L Estim Creat Clear Calc 82 Estimated GFR > 60 Glucose 138 H Calcium 8.9 Phosphorus 2.8 Magnesium 1.9 Total Bilirubin 1.7 H AST 287 H ALT 68 H Alkaline Phosphatase 101 Total Protein 7.0 Albumin 4.3 Discharge Plan Discharge Attending physician on discharge: Marcel Mccray Consulting providers: Denise Gilmore; Joon Mc Discharging Clinician: Marcel Mccray Anticipated Discharge Date/Time: 10/30/24 09:46 Patient Disposition: Home Activity: november shower Diet: heart healthy Patient Instructions: Antibiotic Form Patient Language: Swedish Stand Alone Forms: General Discharge Information Follow-up/Referrals: Geo Oleary MD [Primary Care Provider] - Discharge Medications: New aspirin 81 mg Tablet,Delayed Release (Dr/Ec) 81 mg PO QAM Qty: 90 3RF atorvastatin [Lipitor] 80 mg tablet 80 mg PO DAILY Qty: 90 3RF clopidogrel 75 mg Tablet 75 mg PO QAM Qty: 90 3RF losartan 25 mg Tablet 25 mg PO DAILY Qty: 90 3RF nitroglycerin [Nitrostat] 0.4 mg Tablet, Sublingual 0.4 mg sublingual Q5MIN PRN (Reason: Chest Pain) Qty: 30 1RF metoprolol succinate [Toprol XL] 25 mg Tablet Extended Release 24 Hr 25 mg PO QAM Qty: 90 3RF Continued trazodone 50 mg tablet 50 mg PO .qhs PRN (Reason: insomnia) albuterol sulfate 90 mcg/actuation HFA aerosol inhaler 2 puff inhalation Q4H PRN (Reason: shortness of breath or wheezing) Qty: 8.5 0RF dextroamphetamine-amphetamine [Adderall] 15 mg tablet 15 mg PO BID Qty: 60 0RF Rx Instructions: administer doses at least 4-6 hours apart Discontinued ondansetron HCl 4 mg tablet 4 mg PO Q6H PRN (Reason: nausea and vomiting) Qty: 30 0RF sertraline 100 mg tablet See Rx Instructions .ROUTE .COMPLEX Qty: 180 0RF Dose Instruction: TAKE 2 TABLETS BY MOUTH DAILY Rx Instructions: TAKE 2 TABLETS BY MOUTH DAILY Date of admission: 10/29/24 03:03 Primary Care Provider: Geo Oleary Admitting Provider: Ollie Elder Attending physician on admission: Ollie Elder Condition: Stable
== END 2024-10-30 14:48 | disposition home or self-care (01) | DRG 174 ==
LOC: ANHED 10-29 01:27 → ANHCATHLAB 10-29 01:28 → ANHICU 10-29 16:59 → ANHIMU 10-30 09:46 → ANHICU 10-31 09:23 → ANHIMU 10-31 09:23
PROVIDERS: Internal Medicine; Admitting Provider Internal Medicine Cardiovascular Disease; Emergency Provider Emergency Medicine; PCP Family Medicine; Visit Provider Internal Medicine
PROC: 027034Z Dilation of Coronary Artery, One Artery with Drug-eluting Intraluminal Device, Percutaneous Approach (ICD-10-PCS; CPT 93454; principal; 2024-10-29 00:15)
PROC: 027034Z Dilation of Coronary Artery, One Artery with Drug-eluting Intraluminal Device, Percutaneous Approach (ICD-10-PCS; 2024-10-29 00:15)
PROC: 027034Z Dilation of Coronary Artery, One Artery with Drug-eluting Intraluminal Device, Percutaneous Approach (ICD-10-PCS; 2024-10-29 00:15)
DX: I21.09 ST elevation (STEMI) myocardial infarction involving other coronary artery of anterior wall (principal); I42.9 Cardiomyopathy, unspecified; I10 Essential (primary) hypertension; J45.909 Unspecified asthma, uncomplicated; D75.1 Secondary polycythemia; E78.5 Hyperlipidemia, unspecified; F90.9 Attention-deficit hyperactivity disorder, unspecified type; F32.0 Major depressive disorder, single episode, mild; F41.9 Anxiety disorder, unspecified; Z87.891 Personal history of nicotine dependence
CPT/HCPCS: 36415; 71045; 80053; 80061; 83036; 83735; 84100; 85025; 87641; 92978; 93005; 93454; 96374; 96375; 99285; A9270; C1725; C1753; C1769; C1874; C1887; C1894; C8929; C9606; J0583; J1644; J1938; J2003; J2250; J2270; J2305; J2704; J7030; J7040; Q9957

== ENCOUNTER 2025-06-29 10:47 | Emergency (ER) | payer OTHER, SELFPAY ==
--- OUTSIDE RECORDS SUMMARY | 2025-06-29 10:50 | XMS_ITS | Clinical Summary ---
Author Organization [facility] [employer] [facility] [address] Address [address] [place] [address] Care Team Providers Care Senior Treasury Consultant Name Role Phone Unavailable Primary Care Provider Unavailabl e Social History Tobacco Use Types Packs/Day Years Used Date Smoking Tobacco: Never Assessed Comments Unknown Sex and Gender Information Value Date Recorded Sex Assigned at Not on file Legal Sex Female 10:33 AM EDT Gender Identity Not on file Sexual Orientation Not on file Plan of Treatment Not on file Medical Devices Not on file
--- OUTSIDE RECORDS SUMMARY | 2025-06-29 10:50 | XMS_ITS | Clinical Summary ---
Author Organization [facility] [employer] Address [address] [place] [address] Care Team Providers Care Experience Designer Name Role Phone Geo Oleary MD Primary Care Provider [phone] Source Comments [facility] [employer],non-owned Affiliates and Associated Physician Practices is amultiple site organization consisting of ambulatory clinics and hospital sitesin [place], [place], [place] and [place]. This disclosure is being madepursuant to the Care Everywhere program and may not contain all information available regarding this patient. Last updated 18.[employer] Allergies No known active allergies Medications * Be aware that medications may not be up to date on this document. Alwaysverify current medications with the patient. 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 Pulse 77 06/09/2019 3:42 AM DIVISION OPERATIONS SPECIALIST Temperature 37.1 C (98.7 F) 06/09/2019 3:42 AM DIVISION OPERATIONS SPECIALIST Respiratory Rate 18 06/09/2019 3:42 AM DIVISION OPERATIONS SPECIALIST Oxygen Saturation 94% 06/09/2019 3:42 AM DIVISION OPERATIONS SPECIALIST Inhaled Oxygen Concentration - - Weight 67.1 kg (148 lb) 06/09/2019 3:42 AM DIVISION OPERATIONS SPECIALIST Height 165.1 cm (5' 5) 06/09/2019 3:42 AM DIVISION OPERATIONS SPECIALIST Body Mass Index 24.63 06/09/2019 3:42 AM DIVISION OPERATIONS SPECIALIST Plan of Treatment Health Maintenance Due Date Last Done Comments COLOGUARD (AGES 45-75) - COL ON CA SCREENING 1966 COLON MONITORING 1966 COLONOSCOPY - COLON CA SCREENING 1966 CT COLONOGRAPHY - COLON CA SCREENING 1966 Colorectal Cancer Screening 1966 FIT - COLON CA SCREENING 1966 FLEX SIG - COLON CA SCREENING 1966 LIPID TESTING 1966 MAMMOGRAM 1966 HIV SCREENING 1981 HEPATITIS C SCREENING 09/03/1984 DTAP/TDAP/TD VACCINES (1 - Tdap) 1985 HEPATITIS B VACCINE (1 of 3 - 19+ 3-dose series) 1985 PNEUMOCOCCAL VACCINE 50+ (1 of 1 - PCV) 2016 ZOSTER VACCINE (1 of 2) 2016 DEPRESSION SCREENING 07/10/2024 COVID-19 VACCINE (1 - 2024-2 6 season) 2025 INFLUENZA VACCINE (#1) 2025 HIB VACCINE Aged Out No longer eligi ble based on patient's age to complete this topic HPV VACCINE Aged Out No longer eligi ble based on patient's age to complete this topic MENINGOCOCCAL (Group B) VACC INE SHARED DECISION-MAKING Aged Out No longer eligibl e based on patient's age to complete this topic MENINGOCOCCAL GROUPS A/C/Y/W VACCINE Aged Out No longer eligible b ased on patient's age to complete this topic Insurance [facility]LY [facility] Address: [facility] [id number] [place] [address] Care Teams Experience Designer Relationship Specialty Start Date End Date Geo Oleary MD [address] [place] [address] PCP - General Family Medicine 01/27/17
--- OUTSIDE RECORDS SUMMARY | 2025-06-29 10:50 | XMS_ITS | Clinical Summary ---
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 Gender Identity Not on file Sexual Orientation Not on file Plan of Treatment Health Maintenance Due Date Last Done Comments Hepatitis C Virus (HCV) Screening 1966 TdaP Immunization 1966 Hepatitis B Immunization (1 of 3 - 19+ 3-dose series) 1985 Pap Smear 09/09/1987 Cervical Cancer Screening (CCS) 1996 HPV/Cotest 1996 Cologuard 09/09/2011 Colonoscopy 09/09/2011 Colorectal Cancer Screening 09/09/2011 Immunochemical Fecal Occult Blood 09/09/2011 Pneumococcal Immunization (5 0+ years) (1 of 1 - PCV) 2016 Zoster Immunization (1 of 2) 2016 Influenza Immunization (#1) 2025 05/23/2019 SARS-COV-2 Immunization ( season) 2025 Respiratory Syncytial Virus (RSV) Immunization (Adult) (1 - 1-dose 75+ series) 2041 Human Papillomavirus (HPV) Immunization Aged Out No longer eligible b ased on patient's age to complete this topic Meningococcal Immunization (ACWY) Aged Out No longer eligible based on patient's age to complete this topic Rotavirus Immunization Aged Out No lo nger eligible based on patient's age to complete this topic
[2025-06-29 11:18] VITALS: BP 124/67; PULSE 58; RESP 16; TEMP 36.2; O2SAT 98
--- NOTE | 2025-06-29 11:29 | ED.FEMALEGU ---
HPI - Female Genitourinary General Chief complaint: Urogenital-Female Stated complaint: UTI patient presents to the [facility] with complaints of burning with urination, right-sided lower back pain, urinary frequency and urgency that began over the last week. Patient noted taking [id number] azo which did help with symptoms but last night symptoms return. Patient noted several months ago did have a urinary tract infection and had to change antibiotics several times and ended up with nitrofurantoin. Denies fever, chills, body aches, blood in urine, significant abdominal pain, vaginal symptoms, nausea, vomiting, diarrhea. Related Data Home Medications ?Medication ?Instructions ?Recorded ?Confirmed ?Last Taken ?Type coQ10 (liposomal ubiquinol) 8 mg 06/29/25 Unknown History mg/mL oral liquid Allergies Allergy/AdvReac Type Severity Reaction Status Date / Time No Known Allergies Allergy Mild Verified 06/29/25 11:16 Review of Systems Constitutional: Constitutional: Reports as per HPI, Denies chills and Denies fatigue Eyes: Eyes: Reports no additional eye complaints ENT: Reports system reviewed and no additional complaints, except as documented Cardiovascular: Cardiovascular: Reports no additional cardiovascular complaints Respiratory: Respiratory: Reports no additional respiratory complaints Gastrointestinal: Gastrointestinal: Reports as per HPI, Denies abdominal pain, Denies diarrhea, Denies nausea and Denies vomiting Genitourinary: Genitourinary: Reports as per HPI, Denies abnormal vaginal bleeding, Denies hematuria, Reports nocturia, Denies genital lesions, Reports dysuria, Denies pelvic pain, Denies flank pain, Denies urinary incontinence and Denies vaginal discharge Musculoskeletal: Musculoskeletal: Reports as per HPI, Reports back pain and Denies myalgias Integumentary/Breasts: Skin/Breast: Reports as per HPI, Denies erythema, Denies rash and Denies skin ulcer Neurologic: Reports as per HPI, Denies numbness and Denies weakness Psychiatric: Psychiatric: Reports no additional psychiatric complaints Endocrine: Endocrine: Reports no additional endocrine complaints Hematologic/Lymphatic: Hematologic/Lymphatic: Reports no additional hematologic/lymphatic complaints Allergic/Immunologic: Allergic/Immunologic: Reports no additional allergic/immunologic complaints [facility] Past Medical History Medical History Heart attack Asthma Polycythemia Depression Hypertension Insomnia Attention Deficit Hyperactivity Disorder (ADHD) Surgical History Surgical History History of hysteroscopy With dilation and curettage and endocervical polypectomy. 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 She left the job in November 2021 due to safety concerns. She lives in a home [place] in the she has lived there for many years. She does have 4 cats in her home. Surrogate decision maker: Maritza Smith, mother. Code status: Full code. Smoking packs per day: 1 Smoking cigarettes per day: 20.0 Years smoked: 22 Smoking pack-years: 22.00 Smoking status: Former smoker Tobacco type: cigarettes Second hand tobacco smoke exposure: No Smoking end date: 04/11/25 Alcohol intake: current Drinks per week: 3 Alcohol use details: She has not drank much alcohol this month with her current illness Substance use: current Substance use type: marijuana Other substance usage details: 3x a week Lack of Transportation: No Lack of Food: Never True Current Housing: I Have Housing Concerned About Future Housing: No Difficulty Paying Gas/Electric Bills: No Difficulty Paying for Meds: No Currently Unemployed: YES Education: Bachelor's Degree Difficulty w/ Childcare or Family Care: No Living arrangements: with roommate(s) Occupation/Education: occupation 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 Gender identity (if verbalized by the patient): Female Spiritual care concerns: No Agree to blood products: Yes Exam Const: General: healthy appearing and no acute distress Nutritional Appearance: well nourished Orientation/consciousness: patient oriented x3 Limitations: no limitations Resp: Effort & Inspection: normal respiratory effort Auscultation: clear to auscultation bilaterally Cardio: Rate: regular rate Rhythm: regular rhythm GI: Inspection: non-distended GI Palp: Yes Soft to palpation, No Tenderness to palpation present (GI), No Guarding due to palpation present (GI) and No Rigid due to palpation Auscultation: normal bowel sounds : General: Yes bladder normal to palpation and Yes no CVA tenderness Back/Spine/Pelvis: Back: no CVA tenderness Skin: General skin exam: normal color Rashes: no rashes Wounds: no wounds Neuro: General: patient oriented x3 Speech: normal speech Gait exam (Neuro): Normal gait present Psych: Appearance: grossly normal Mental Status: mental status grossly normal Affect: normal affect Attitude: cooperative Course Course Level of Care: Express Care Visit Vital Signs Vital signs: Vital Signs Temperature 97.2 F L 06/29/25 11:18 Pulse Rate 58 L 06/29/25 11:18 Respiratory Rate 16 06/29/25 11:18 Blood Pressure 124/67 06/29/25 11:18 Pulse Oximetry 98 06/29/25 11:18 Oxygen Delivery Room Air 06/29/25 11:18 Temperature 97.2 F L 06/29/25 11:18 Pulse Rate 58 L 06/29/25 11:18 Respiratory Rate 16 06/29/25 11:18 Blood Pressure 124/67 06/29/25 11:18 Pulse Oximetry 98 06/29/25 11:18 Oxygen Delivery Room Air 06/29/25 11:18 [facility] MDM Narrative Medical decision making narrative: Unable to run urine due to azo usage will send culture The patient was evaluated by myself in the express care. History is obtained from patient who is an independent historian and physical exam was performed. Available medical records were reviewed at this time. Exam findings show no acute concerns or changes; patient is non-toxic appearing and is in no distress. Patient is appropriate for outpatient treatment and follow-up. I have evaluated and discussed social determinants of health with the patient that could potentially impact subsequent diagnosis and treatment plans. Differential diagnosis and treatment plan were discussed with the patient. Patient agrees with discussion and after shared medical decision making agrees with plan of care. All questions were answered to the patient's satisfaction. Differential Diagnosis Differential Diagnosis: cystitis, vaginal yeast infection, bacterial vaginosis, pyelonephritis Medical Records I have reviewed the following patient records and this information was taken into consideration when formulating the assessment and plan.: previous labs, previous ER visits, previous hospitalizations and previous clinic visits Lab Data [facility] Lab Attestation statement: I personally reviewed the patient's lab results. Lab results narrative: unable to run UA will send culture Discharge Plan Discharge Clinical Impression: Cystitis Patient Disposition: Home Condition: Stable Instructions: Antibiotic Form, Urinary Tract Infection in Women (ED) Additional Instructions: We will send a urine culture off to the lab; if the culture identifies an organism that the prescribed antibiotic will not treat, you will receive a phone call from an urgent care staff member and an appropriate antibiotic will be prescribed. -Your symptoms should begin to improve within a day of starting antibiotics. But you should finish all the antibiotic pills you get. Otherwise your infection might come back. -Also recommend: drink more fluid. It might help flush out germs, and it does no harm -Tylenol/ibuprofen as needed for pain -Follow-up with your primary care provider for urine recheck OR if your symptoms persist, change or worsen significantly before you can contact your personal physician then please, without delay, go to the emergency department for further evaluation. Patient Language: Maltese Prescriptions: New nitrofurantoin monohyd/m-cryst [Macrobid] 100 mg capsule 100 mg PO Q12H 7 Days Qty: 14 0RF Rx Instructions: must administer with a meal/food No Action coQ10 (liposomal ubiquinol) 8 mg/mL liquid alprazolam 0.25 mg tablet 0.25 mg PO TID PRN (Reason: anxiety) Qty: 30 0RF dextroamphetamine-amphetamine [Adderall] 15 mg tablet 15 mg PO BID Qty: 60 0RF Rx Instructions: administer doses at least 4-6 hours apart albuterol sulfate 90 mcg/actuation HFA aerosol inhaler 2 puff inhalation Q4H PRN (Reason: shortness of breath or wheezing) Qty: 8.5 0RF aspirin 81 mg tablet,delayed release (DR/EC) 81 mg PO QAM Qty: 90 3RF nitroglycerin [Nitrostat] 0.4 mg tablet, sublingual 0.4 mg sublingual Q5MIN PRN (Reason: Chest Pain) Qty: 30 1RF clopidogrel 75 mg tablet 75 mg PO QAM Qty: 90 3RF atorvastatin [Lipitor] 80 mg tablet 80 mg PO DAILY Qty: 90 3RF metoprolol succinate [Toprol XL] 25 mg tablet extended release 24 hr 25 mg PO QAM Qty: 90 3RF losartan 25 mg tablet 25 mg PO DAILY Qty: 90 3RF Follow-up/Referrals: Geo Oleary MD [Primary Care Provider, [facility]] Time of Disposition: 11:36
== END 2025-06-29 11:40 | disposition home or self-care (01) ==
PROVIDERS: Emergency Provider Nurse Practitioner Family; PCP Family Medicine
DX: N30.90 Cystitis, unspecified without hematuria (principal); I10 Essential (primary) hypertension; J45.909 Unspecified asthma, uncomplicated; I25.2 Old myocardial infarction; F90.9 Attention-deficit hyperactivity disorder, unspecified type; F12.90 Cannabis use, unspecified, uncomplicated; Z87.891 Personal history of nicotine dependence; Z79.82 Long term (current) use of aspirin
CPT/HCPCS: 87086; 99213; G0463